=== PATIENT | female | born 1995 | race Caucasian/White ===

== ENCOUNTER 2023-11-11 10:32 | Outpatient (OUT) | payer MEDICAID, SELFPAY ==
--- NOTE | 2023-11-11 10:36 | US_ITS ---
[address] [address] Patient Name: ARPIT HINKLE MRN: [id number] date: 1995 Sex: F Assigned Patient Location: [facility] Current Patient Location: [facility] Accession/Order Number: [id number] Exam Date: 11/11/2023 10:36 Report Date: 11/11/2023 11:40 At the request of: JEFFRY LUCIA Procedure: US OB incomplete anatomy EXAM: US OB incomplete anatomy HISTORY: INCOMPLETE ANATOMY COMPARISON: None. TECHNIQUE: Transabdominal FINDINGS: Moyer intrauterine gestation position: Cephalic presentation, longitudinal lie Heart rate: 149 beats minute Normal observed anatomy: Four-chamber heart, RVOT, LVOT, diaphragm, arms, legs Clinical age: 24 weeks 2 days Clinical CESAR: 02/29/2024 US/US OB incomplete anatomy IMPRESSION: Normal observed anatomy Electronically authenticated by: SAMANTHA HERBERT Date: 11/11/2023 11:40
== END 2023-11-11 10:33 | disposition home or self-care (01) ==
LOC: NOMS 10:32
PROVIDERS: Visit Provider Obstetrics & Gynecology
DX: Z36.2 Encounter for other antenatal screening follow-up (principal); Z3A.24 24 weeks gestation of pregnancy
CPT/HCPCS: 76815

== ENCOUNTER 2023-12-17 12:46 | Outpatient (OUT) | payer MEDICAID, SELFPAY ==
--- OUTSIDE RECORDS SUMMARY | 2023-12-17 12:54 | XMS_ITS | CCD ---
Author Organization [facility] Care Team Providers Care Steeping Press Tender Name Role Phone Ana María Smith Unavailable [phone] Unavailable Unavailable [place], Tomas Unavailable JEFFRY LUCIA Admitting Unavailable JEFFRY LUCIA Attending Unavailable JEFFRY LUCIA Consulting Unavailable MINA ., BIJAN Admitting Unavailable MINA ., BIJAN Attending Unavailable MINA ., BIJAN Consulting Unavailable [place] ([facility]), THOR Landry Attending Provider [phone] [facility] Primary Care Provider [phone] [place] ([facility]), Roz Landry Attending Unavailabl e [place] ([facility]), Roz Landry [facility] Un[facility] Primary Care Provider [phone] [place] ([facility]), TOHR Landry Attending Provider [facility] Primary Care Unavailable [place] ([facility]), Roz Landry Attending Unavailabl e [place] ([facility]), Roz Landry Admitting Unavailabl e JEFFRY LUCIA Attending Unavailable JEFFRY LUCIA Attending Unavailable Medications Current Medications Medication Drug Class(es) Dates Sig (Normalized) Sig (Original) methylPREDNISolone 4 mg oral tablet (1 source) Corticosteroid Start: 05-18-2021 Medrol 4 MG as directed Orally as directed for 6 days May, Active omeprazole 20 mg delayed release oral tablet (1 source) Proton Pump Inhibitor Start: 02-27-2020 take 1 tablet by mouth once daily Omeprazole Magnesium (Prilosec Otc) 20 mg Tablet,Delayed Release (Dr/Ec) Active 20 MG PO Daily February 27, 2020 12:00am polyethylene glycol 3350 44695 mg powder for oral solution (1 source) Osmotic Laxative Start: 02-27-2020 Polyethylene Glycol 3350 (Miralax) 17 gram Powder In Packet Active 17 GM PO Daily February 27, 2020 12:00am mix into 4-8 oz. of any hot/cold/room temp. beverage; use immediately Completed/Discontinued Medications Medication Drug Class(es) Dates Sig (Normalized) Sig (Original) biotin 5 mg oral capsule (2 sources) Biotin 5000 MCG Oral Capsule Quantity: 0 Refills: 0 Ordered: 30-Jul-2021 DO Active methylPREDNISolone 4 MG Oral Tablet Therapy Pack (1 source) Start: 1 take 1 tablet by mouth once daily methylPREDNISolone 4 MG Oral Tablet Therapy Pack TAKE ONE ROW OF TABLETS EACH DAY INSTRUCTED ON THE PACKAGE Quantity: 21 Refills: 0 Ordered: 20-May-2021 DO Start : 20-May-2021 Complete triamcinolone acetonide 0.001 mg/mg topical ointment (2 sources) Corticosteroid Start: 2 Triamcinolone Acetonide 0.1 % External Ointment APPLY SPARINGLY TO AFFECTED AREA(S) 3 TIMES A DAY Quantity: 15 Refills: 1 Ordered: 18-Jul-2021 Ana María Smith MD Start : 18-Jul-2021 Active Womens Daily Multivitamin TABS (2 sources) Womens Daily Multivitamin TABS TAKE 1 TABLET DAILY. Quantity: 0 Refills: 0 Ordered: 30-Jul-2021 DO Active Problems Active Problems Problem Classification Problem Date Documented Da te Episodic/Chronic Abdominal pain (1 source) Abdominal pain; Translations: [Unspecified abdominal pain] 02-27-2020 Episodic Allergic reactions (7 sources) Contact dermatitis; Translations: [Contact dermatitis and other eczema due to other specified agents] Onset: 05-18-2021 Resolved: 05-18-2021 Episodic Anxiety disorders (1 source) Anxiety; Translations: [Anxiety disorder, unspecified] 08-13-2017 Chronic Genitourinary symptoms and ill-defined conditions (4 sources) Urgent desire to urinate; Translations: [Urgency of urination] Episodic Headache; including migraine (1 source) Headache; Translations: [Headache] 08-13-2017 Episodic Immunizations and screening for infectious disease (2 sources) Contact with and (suspected) exposure to infections with a predominantly sexual mode of transmission; Translations: [Encounter for screening for human papillomavirus (HPV)] Onset: 08-28-2021 Episodic Other female genital disorders (4 sources) Other specified noninflammatory disorders of vagina; Translations: [OTH SPEC NONINFLAMMATORY D/O VAGINA] Onset: 08-18-2022 Episodic Other gastrointestinal disorders (2 sources) 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; 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 Other and delivery including normal (1 source) Encounter for supervision of normal first , second trimester; Translations: [Encounter for supervision of normal first , second trimester] Onset: 10-15-2023 Episodic Other skin disorders (2 sources) Skin lesion; Translations: [Dyschromia, unspecified] Episodic Other upper respiratory disease (1 source) Bleeding from nose; Translations: [Epistaxis] 08-13-2017 Episodic Unclassified (2 sources) Encounter for supervision of normal , unspecified, first trimester; Translations: [Encounter for supervision of normal , unspecified, first trimester] Onset: 07-16-2023 Past or Other Problems Problem Classification Problem Date Documented Da te Episodic/Chronic Other screening for suspected conditions (not mental disorders or infectious disease) (4 sources) Encounter for screening for malignant neoplasm of cervix; Translations: [ENC SCREENING MALIG NEOPLASM CERV] Onset: 08-26-2021 Episodic Results Test Name Value Interpretation Reference Range Facility US OB >= 14 weeks Fetuson US OB >= 14 weeks Fetus [facility] [place] [address] Ultrasound Report Signed Patient: Arpit Hinkle MR#: [id number] : 1995 Acct:[id number] Age/Sex: 27 / F ADM Date: 10/15/23 Loc: Room: Type[facility] Attending Dr: Roz Walsh ([facility]) THOR Ordering Provider: Roz Walsh APRN, WHCNP Date of Service: 10/15/23 US/US OB >= 14 weeks Fetus: Z34.02 Copies to: Roz Walsh APRN, WHCNP Obstetrical Ultrasound for Fetus greater than 14 weeks HISTORY: anatomy assessment heart rate is 167 bpm. The fetus is in vertex presentation. The placenta is in a posterior position with normal appearance. Amniotic fluid index is 11.4cm. The cervix has a length of 3.9cm. The estimated weight is 0 lbs. 12 oz.. with percentile at 31%. The ovaries are not visualized. No fluid identified in the cul-de-sac. Following anatomy identified: Nose and lips, spine, stomach, cord insertion, three-vessel cord, kidneys, urinary bladder. Limited assessment of the four-chamber heart, 12 long bones and diaphragm. Cisterna magna measures 3 mm. Lateral ventricle measures 4 mm. The biparietal diameter measures 4.9cm consistent with 20 weeks 6 days. Head circumference measures 18.0cm consistent with 20 weeks 4 days. Abdominal circumference measures 15.0cm consistent with 20 weeks 2 days. Femur length is 3.4cm consistent with 20 weeks 5 days. The average gestational age is 20 weeks 5 days. Estimated due date is 02/27/2024. somatic motion identified. US/US OB >= 14 weeks Fetus IMPRESSION: Single live intrauterine gestation 20 weeks 5 days. The anatomy as above. Impression dictated by: Hubert Rowan M.D.10/15/2023 2:41 PM Dictation Location: [place] [address] Tech: Yanet Xavier Transcribed By: MARCELINA 10/15/23 1441 Dictated By: Hubert Rowan DO 10/15/23 1436 Signed By: 10/15/23 1441 Normal [facility] US OB <= 14 weeks fetuson US OB <= 14 weeks fetus [facility] [place] [address] Ultrasound Report Signed Patient: Arpit Hinkle MR#: [id number] : 1995 Acct:[id number] Age/Sex: 27 / F ADM Date: 07/16/23 Loc: Room: Type: [facility] Attending Dr: Roz Walsh ([facility]) THOR Ordering Provider: Roz Walsh APRN, WHCNP Date of Service: 07/16/23 US/US OB <= 14 weeks fetus: Z3A.01 Copies to: Roz Walsh APRN, WHCNP OB ultrasound. Reason for exam:Dating ultrasound Comparison:None. Technique: Transabdominal imaging of the gravid uterus was obtained. Findings: Single live intrauterine measuring 7 weeks 0 days by CRL CESAR 03/03/2024. heart rate 147 bpm. Ovaries appear unremarkable. No free fluid. US/US OB <= 14 weeks fetus Impression: Single live intrauterine measuring 7 weeks 0 days by CRL CESAR 03/03/2024. Impression dictated by: Oh Mann Jr., D.O.07/16/2023 2:23 PM Dictation Location: [id number] Tech: Gale Richard Transcribed By: PWS 07/16/23 1423 Dictated By: Oh Mann Jr, DO 07/16/23 142 Signed By: 07/16/23 142 Normal [facility] US OB <= 14 weeks fetus [facility] [place] [address] Ultrasound Report Signed Patient: Arpit Hinkle MR#: [id number] : 1995 Acct:[id number] Age/Sex: 27 / F ADM Date: 07/16/23 Loc: Room: Type: [facility] Attending Dr: Roz Walsh ([facility]) THOR Ordering Provider: Roz Walsh APRN, WHCNP Date of Service: 07/16/23 US/US OB <= 14 weeks fetus: Z3A.01 Copies to: Roz Walsh APRN, WHCNP OB ultrasound. Reason for exam:Dating ultrasound Comparison:None. Technique: Transabdominal imaging of the gravid uterus was obtained. Findings: Single live intrauterine measuring 7 weeks 0 days by CRL CESAR 03/03/2024. heart rate 147 bpm. Ovaries appear unremarkable. No free fluid. US/US OB <= 14 weeks fetus Impression: Single live intrauterine measuring 7 weeks 0 days by CRL CESAR 03/03/2024. Impression dictated by: Oh Mann Jr., D.O.07/16/2023 2:23 PM Dictation Location: [id number] Tech: Gale Richard Transcribed By: PWS 07/16/23 1423 Dictated By: Oh Mann Jr, DO 07/16/23 1420 Signed By: 07/16/23 1423 Normal [facility] CHLAMYDIA/GONOCOCCUS HIRAM (SW AB/URINE/PAPon 08-21-2022 Chlamydia trachomatis, HIRAM Negative Normal Negative [facility] Comment on above: Performed By: #### C T/NGNA #### [facility] [address] [place] [address] Dr. Derrick Luna Neisseria gonorrhoeae, HIRAM Negative Normal Negative [facility] Comment on above: Performed By: #### C T/NGNA #### [facility] [address] [place] [address] Dr. Derrick Luna VAGINITIS/VAGINOSIS DNA PROB Dev[place] 08-20-2022 Alyssa species Negative Normal Negative [facility] Comment on above: Performed By: #### V AGINT #### [facility] [address] [place] [address] Dr. Derrick Luna Gardnerella vaginalis Positive Abnormal Negative [facility] Comment on above: Performed By: #### V AGINT #### [facility] [address] [place] [address] Dr. Derrick Luna Trichomonas vaginalis Negative Normal Negative [facility] Comment on above: Performed By: #### V AGINT #### [facility] [address] [place] [address] Dr. Derrick Luna PAP ACOG PANEL 2: 21 to 29on 08-30-2021 . . Normal [facility] Comment on above: Performed By: #### 4 [id number] #### [facility] [address] [place] [address] Dr. Derrick Luna Age Gdln ACOG Testing - Normal [facility] Comment on above: Performed By: #### 4 [id number] #### [facility] [address] [place] [address] Dr. Derrick Luna DIAGNOSIS: Comment Normal [facility] Comment on above: Result Comment: NEGA TIVE FOR INTRAEPITHELIAL LESION OR MALIGNANCY. THIS SPECIMEN WAS RESCREENED PART OF OUR CUSTOMER SERVICE ADVISOR PROGRAM. Performed By: #### 4 [id number] #### [facility] [address] [place] [address] Dr. Derrick Luna Methodology: Comment Normal [facility] Comment on above: Result Comment: This liquid based ThinPrep(R) pap test was screened with the use of an image guided system. Performed By: #### 4 [id number] #### [facility] [address] [place] [address] Dr. Derrick Luna Note: Comment Normal [facility] Comment on above: Result Comment: The Pap smear is a screening test designed to aid in the detection of premalignant and malignant conditions of the uterine cervix. It is not a diagnostic procedure and should not be used as the sole means of detecting cervical cancer. Both false-positive and false-negative reports do occur. . Performed By: #### 4 [id number] #### [facility] [address] [place] [address] Dr. Derrick Luna Performed by: Comment Normal [facility] Comment on above: Result Comment: Ifrah Villa, Roofing Sales Representative (ASCP) Performed By: #### 4 [id number] #### [facility] [address] [place] [address] Dr. Derrick Luna QC reviewed by: Comment Normal [facility] Comment on above: Result Comment: Jorge Mcclain, Roofing Sales Representative (ASCP) Performed By: #### 4 [id number] #### [facility] [address] [place] [address] Dr. Derrick Luna Reflex Criteria: Comment Normal [facility] Comment on above: Result Comment: The HPV DNA reflex criteria were not met with this specimen result therefore, no HPV testing was performed. . Performed By: #### 4 [id number] #### [facility] [address] [place] [address] Dr. Derrick Luna Specimen adequacy: Comment Normal [facility] Comment on above: Result Comment: Sati sfactory for evaluation. Endocervical and/or squamous metaplastic cells (endocervical component) are present. Performed By: #### 4 [id number] #### [facility] [address] [place] [address] Dr. Derrick Luna Office Visit (Allergy/Immuno logy)on 07-30-2021 Follow-up visit Diagnoses/Problems Health Maintenance/Risks Encounter for preventive health examination (V70.0) (Z00.00) Assessed Hypopigmented skin lesion (709.00) (L81.9) Contact dermatitis due to other agent (692.89) (L25.8) Food intolerance (579.8) (K90.49) Allergy (995.3) (T78.40XA) Orders Contact dermatitis due to other agent Stop: Triamcinolone Acetonide 0.1 % External Ointment Hypopigmented skin lesion Dermatology Referral Evaluation and Treatment Evaluate AND Treat Status: Hold For - Scheduling Requested for: 30Jul2021 Patient Discussion/Summary Referred to dermatology Follow up as needed Provider Impressions Hypopigmented macules No allergy to to food or environmental triggers. Chief Complaint New patient here to discuss rash, PCP is Dr. Ana María Smith History of Present IllnessPatient here to discuss rash. Patient had a hives breakout about 2 months ago lasting 5 days, so went to PCP and was given a steroid injection and did improve after an hour or so, but still had the bumps. Patient thought was related to a tanning chambers. Patient states that she has never had before. Patient states she will on occasion having itching of her hands. Patient uses lotion daily, baby lotion, Honey lavender from [employer] as well, but does not notice any difference. Patient can't recall any new triggers during each episode other than a protein smoothie from a coworker that day, with flax seeds, but states had the hives at bedtime. Patient has a dog in the home that she has had for 4 1/2 years. Patient states she has 1 full blood sister that is allergic to candles/scents causing her to have rashes and breathing problems, and has 2 half sisters stating allergic to multiple medications, latex, bananas, blueberries, raspberries, sunflower, lavender and hemp as well as as thyroid problems. Patient states mother is allergic to PCN, latex and Keflex. Patient states that she has some skin patches that look white in color and also states has some flat, redness on her L antecubital area that comes and goes. Patient is using topical lotions, no prescribed meds One large episode of hives. Occurred spontaneously. Not related to illness or ingestion. ? heat exposure. Review of Systems Constitutional: no fever, no chills and not feeling tired. Eyes: eyes not red and no itching of the eyes. ENT: no hearing loss, no nosebleeds, no nasal discharge, no sore throat and no hoarseness. Cardiovascular: no chest pain and no palpitations. Respiratory: no shortness of breath, no wheezing, no cough and no shortness of breath during exertion. Gastrointestinal: no abdominal pain, no constipation, no heartburn, no diarrhea and no vomiting. Integumentary: no dry skin. Psychiatric: no anxiety and no depression. All other systems have been reviewed and are negative for complaint. Constitutional: no fever and normal activity. Integumentary: no rashes and no itching. Eyes: no discharge from the eyes and no itching of the eyes. ENT: no sneezing jags, no nasal congestion and no rhinorrhea. Respiratory: no difficulty breathing and no cough. Gastrointestinal: no vomiting and no diarrhea. Psychiatric: no change in behavior. All other systems have been reviewed and are negative for complaint. Active Problems Problems Contact dermatitis due to other agent (692.89) (L25.8) Urinary urgency (788.63) (R39.15) Family History Sister Family history of thyroid disease (V18.19) (Z83.49) Family history of Other iron deficiency anemia Grandparent Family history of lung cancer (V16.1) (Z80.1) Family history of malignant neoplasm of larynx (V16.2) (Z80.2) Maternal Grandfather Family history of hypertension (V17.49) (Z82.49) Maternal Aunt Family history of thyroid disease (V18.19) (Z83.49) Social History Problems Never smoked cigarettes (V49.89) (Z78.9) Patient consumes caffeinated coffee (V49.89) (Z78.9) Social alcohol use (V49.89) (Z78.9) Allergies Medication No Known Drug Allergies Recorded By: Bryanna Khan; 07/18/2021 2:40:17 PM Current Meds Medication NameInstruction Biotin 5000 MCG Oral Capsule Triamcinolone Acetonide 0.1 % External OintmentAPPLY SPARINGLY TO AFFECTED AREA(S) 3 TIMES A DAY Womens Daily Multivitamin TABSTAKE 1 TABLET DAILY. Vitals Vital Signs Recorded: 30Jul2021 03:31PM Qhixnarvzta48.1 F, Temporal Heart Rate71 Zhvdvggebdx79 Uxmrnbqv763 Klrfktjyf30 Height5 ft 1 in Nvlbob566 lb BMI Sbvndbqdty28.1 kg/m2 BSA Calculated1.69 Tobacco Useb) No O2 Kitgbhdcsa84, RA Physical Exam Constitutional General appearance: Well developed, well nourished, no acute distress. Head and Face Palpation of the face and sinuses: No sinus tenderness, normal cephalic, atraumatic. Eyes Inspection of the conjunctiva and lids: Normal, no injection, no shiners. Ears, Nose, Mouth, and Throat Inspection of the nasal mucosa, septum, and turbinates: Normal without edema or erythema. (more content not included)... Normal [employer] Tobacco Screening.on 022 Tobacco use status CPHS b) No [id number] [place] [id number] Work Phone: COMPREHENSIVE PANELon 2021 Albumin [Mass/Vol] 4.7 g/dL Normal 3.4 - 5.0 [facility] Comment on above: Performed By: #### C MP #### [address] [id number] ALP [Catalytic activity/Vol] 60 U/L Normal 33 - 110 [facility] Comment on above: Performed By: #### C MP #### [address] [id number] ALT [Catalytic activity/Vol] 29 U/L Normal 7 - 45 [facility] Comment on above: Result Comment: Rolanda ents treated with Sulfasalazine may generate falsely decreased results for ALT. Performed By: #### C MP #### [address] [id number] Anion gap [Moles/Vol] 12 mmol/L Normal 10 - 20 [facility] Comment on above: Performed By: #### C MP #### [address] [id number] AST [Catalytic activity/Vol] 30 U/L Normal 9 - 39 [facility] Comment on above: Performed By: #### C MP #### [address] [id number] Bilirubin [Mass/Vol] 0.6 mg/dL Normal 0.0 - 1.2 [facility] Comment on above: Performed By: #### C MP #### [address] [id number] Calcium [Mass/Vol] 10.0 mg/dL Normal 8.6 - 10.3 [facility] Comment on above: Performed By: #### C MP #### [address] [id number] Chloride [Moles/Vol] 100 mmol/L Normal 98 - 107 [facility] Comment on above: Performed By: #### C MP #### [address] [id number] Creatinine [Mass/Vol] 0.79 mg/dL Normal 0.50 - 1.05 [facility] Comment on above: Performed By: #### C MP #### [address] [id number] eGFR FEMALE >90 Normal >90 [facility] Comment on above: Result Comment: CALC ULATIONS OF ESTIMATED GFR ARE PERFORMED USING THE 2020 CKD-EPI STUDY REFIT EQUATION WITHOUT THE RACE VARIABLE FOR THE IDMS-TRACEABLE CREATININE METHODS. https://jasn.asnjournals.org/content/early/ASN.52909806 88 Performed By: #### C MP #### [address] [id number] Glucose [Mass/Vol] 85 mg/dL Normal 74 - 99 [facility] Comment on above: Performed By: #### C MP #### [address] [id number] HCO3 (Bld) [Moles/Vol] 29 mmol/L Normal 21 - 32 [facility] Comment on above: Performed By: #### C MP #### [facility] [address] [place], [place] [id number] Potassium [Moles/Vol] 3.9 mmol/L Normal 3.5 - 5.3 [facility] Comment on above: Performed By: #### C MP #### [facility] [address] [place], [place] [id number] Protein [Mass/Vol] 8.2 g/dL Normal 6.4 - 8.2 [facility] Comment on above: Performed By: #### C MP #### [facility] [address] [place], [place] [id number] Sodium [Moles/Vol] 137 mmol/L Normal 136 - 145 [facility] Comment on above: Performed By: #### C MP #### [facility] [address] [place], [place] [id number] Urea nitrogen [Mass/Vol] 14 mg/dL Normal 6 - 23 [facility] Comment on above: Performed By: #### C MP #### [facility] [address] [place], [place] [id number] Laboratory - Chemistry and C hemistry - challengeon 07-18-2021 Albumin BCP dye [Mass/Vol] 4.7 g/dL 3.4 - 5.0 [facility] Work Phone: ALP [Catalytic activity/Vol] 60 U/L 33 - 110 [facility] Work Phone: ALT With P-5'-P [Catalytic activity/Vol] 29 U/L 7 - 45 [facility] Work Phone: Comment on above: Patients treated wit h Sulfasalazine may generate falsely decreased results for ALT. Anion gap [Moles/Vol] 12 mmol/L 10 - 20 [facility] Work Phone: AST With P-5'-P [Catalytic activity/Vol] 30 U/L 9 - 39 [facility] Work Phone: Bilirubin [Mass/Vol] 0.6 mg/dL 0.0 - 1.2 [facility] Work Phone: Calcium [Mass/Vol] 10.0 mg/dL 8.6 - 10.3 [facility] Work Phone: Chloride [Moles/Vol] 100 mmol/L 98 - 107 [facility] Work Phone: CO2 [Moles/Vol] 29 mmol/L 21 - 32 [facility] Work Phone: Creatinine [Mass/Vol] 0.79 mg/dL See Below [facility] Work Phone: Comment on above: Reference Range: 0.5 0 - 1.05 Glucose [Mass/Vol] 85 mg/dL 74 - 99 [facility] Work Phone: Potassium [Moles/Vol] 3.9 mmol/L 3.5 - 5.3 [facility] Work Phone: Protein [Mass/Vol] 8.2 g/dL 6.4 - 8.2 [facility] Work Phone: Sodium [Moles/Vol] 137 mmol/L 136 - 145 [facility] Work Phone: TSH Qn 0.73 m[IU]/L See Below [facility] Work Phone: Comment on above: Reference Range: 0.4 4 - 3.98 TSH testing is performed using different testing methodology at [facility] than at other [facility] Direct result comparisons should only be made within the same method. Urea nitrogen [Mass/Vol] 14 mg/dL 6 - 23 [facility] Work Phone: No Panel Informationon 07-18 >90 >90 [facility] Work Phone: Comment on above: CALCULATIONS OF [facility] MATED GFR ARE PERFORMED USING THE 2020 CKD-EPI STUDY REFIT EQUATION WITHOUT THE RACE VARIABLE FOR THE IDMS-TRACEABLE CREATININE METHODS.https://jasn.asnjournals.org/content//ASN. 0477209650 [facility] Follow-up visit Diagnoses/Problems Patient consumes caffeinated coffee (V49.89) (Z78.9) Family history of malignant neoplasm of larynx (V16.2) (Z80.2) : Grandparent Family history of lung cancer (V16.1) (Z80.1) : Grandparent Family history of Other iron deficiency anemia : Sister Family history of thyroid disease (V18.19) (Z83.49) : Maternal Aunt, Sister Contact dermatitis due to other agent (692.89) (L25.8) Urinary urgency (788.63) (R39.15) Orders Contact dermatitis due to other agent Start: Triamcinolone Acetonide 0.1 % External Ointment; APPLY SPARINGLY TO AFFECTED AREA(S) 3 TIMES A DAY Comprehensive Metabolic Panel; Status:Active; Requested for:[id number]; TSH WITH REFLEX TO FREE T4 IF ABNORMAL; Status:Active; Requested for:[id number]; Urinalysis; Status:Active; Requested for:[id number]; Patient Discussion/Summary rx , Labs ,FF , F/U Neuropsychiatrist , OPH , tcb x 1wk , daily X's , , rto pending reports , routine skin care Chief Complaint Patient presented today to [facility]. History of Present Illness Physical Review of Systems Constitutional: no chills, no fever and no night sweats. Eyes: no blurred vision and no eyesight problems . oph. Genitourinary:. AMMONIUM NITRATE CRYSTALLIZER , h/o atb / lozano cath @ age of 9yrs. The patient presents with complaints of gradual onset of constant episodes of moderate urinary frequency. Symptoms are not improved by diet modification and caffeine restriction. Symptoms are not made worse by oral fluid intake, stress, fatigue, acidic foods, spicy foods, caffeine, diuretics and alcohol. Symptoms are unchanged. Previous Evaluation: h/o urinary retention in childhood. Risk Factors: no trauma and no new medication. Pertinent Medical History: no previous UTI, no previous STD, no BPH and no urethral stricture. Integumentary: a rash . chest / lt elbow x 3 m from tanning. Psychiatric: anxiety, depression and emotional problems . h/o 8 yrs saw psyche. Endocrine: polyuria, but no recent weight gain and no recent weight loss. Hematologic/Lymphatic: no tendency for easy bruising and no swollen glands. Family History Family history of thyroid disease (V18.19) (Z83.49) Family history of Other iron deficiency anemia Family history of lung cancer (V16.1) (Z80.1) Family history of malignant neoplasm of larynx (V16.2) (Z80.2) Family history of hypertension (V17.49) (Z82.49) Family history of thyroid disease (V18.19) (Z83.49) Social History Never smoked cigarettes (V49.89) (Z78.9) Patient consumes caffeinated coffee (V49.89) (Z78.9) Social alcohol use (V49.89) (Z78.9) Allergies No Known Drug Allergies Recorded By: Bryanna Khan; 07/18/2021 2:40:17 PM Vitals Vital Signs Printed in Appendix #1 below. Physical Exam Constitutional: Alert and in no acute distress. Well developed, well nourished. Head and Face: Head and face: Normal. Palpation of the face and sinuses: Normal. Eyes: Normal external exam. Pupils were equal in size, round, reactive to light (PERRL) with normal accommodation and extraocular movements intact (EOMI). Ophthalmoscopic examination: Normal. Ears, Nose, Mouth, and Throat: External inspection of ears and nose: Normal. Hearing: Normal. Oropharynx: Normal. Neck: No neck mass was observed. Supple. Thyroid not enlarged and there were no palpable thyroid nodules. Cardiovascular: Palpation of heart: Normal. Carotid pulses: Normal with no bruits. No peripheral edema. Pulmonary: Clear bilateral breath sounds. Chest: Chest: Normal. Abdomen: Soft nontender; no abdominal mass palpated. No hernias. Musculoskeletal: Gait and station: Normal. No joint swelling seen, normal movements of all extremities. Skin: Examination of the skin for lesions: Abnormal. Multiple, jorgito macule(s) without scalloped borders, with symmetrical borders, with smooth borders that were annular, that were bandlike. Neurologic: Cortical function: Normal. Deep tendon reflexes were 2+ and symmetric. Coordination: Normal. Psychiatric: Judgment and insight: Intact. Alert and oriented x 3. Recent and remote memory: Normal. Mood and affect: Normal. Lymphatic: No cervical lymphadenopathy. 'Scores and Scales' Signatures Electronically signed by : Ana María Smith MD; Jul 18 2021 3:13PM EST (Author) Appendix #1 Vital Signs Patient: ARPIT HINKLE; : 1995; Recorded: 18Jul2021 02:50PMRecorded: [id number] 02:44PMRecorded: 18Jul2021 02:37PM Tobacco Useb) No PHQ-2 #1. Over the last 2 weeks have you felt down, depressed or hopeless? (If yes, answer PHQ-9 below)No PHQ-2 #2. Over the last 2 weeks have you felt little interest or pleasure in doing things? (If yes, answer PHQ-9 below)No Snobcppj911 Nnkbdhnhj57 Vhltwrtmjrj40.6 F Height5 ft 3 in Twfqoj957 lb BMI Izqywndbpn42.63 kg/m2 BSA Calculated1.74 Normal [facility] TSH WITH REFLEX TO FREE T4 I F ABNORMALon 07-18-2021 TSH Qn 0.73 m[IU]/L Normal 0.44 - 3.98 [facility] Comment on above: Result Comment: TSH testing is performed using different testing methodology at [facility] than at other [facility]. Direct result comparisons should only be made within the same method. Performed By: #### T [facility] #### [address] [id number] Tobacco Screening.on 022 Adult depression screening assessment No [facility] 125 Work Phone: Tobacco use status CPHS b) No [facility] 125 Work Phone: UA MICROSCOPICon 07-18-2021 Mucus Ql (Urine sed) 2+ /LPF Normal [facility] Comment on above: Performed By: #### U [facility] #### [address] [id number] RBC 6 /HPF Abnormal 0-5 [facility] Comment on above: Performed By: #### U [facility] #### [address] [id number] SQUAMOUS EPITH. CELLS 3 /HPF Normal [facility] Comment on above: Performed By: #### U AMIC #### [address] [id number] WBC 1 /HPF Normal 0-5 [facility] Comment on above: Performed By: #### U AMIC #### [address] [id number] URINALYSISon 07-18-2021 Appearance (U) HAZY Normal CLEAR [facility] Comment on above: Performed By: #### U A #### [address] [id number] Bilirubin Ql (U) Negative Normal NEGATIVE [facility] Comment on above: Performed By: #### U A #### [address] [id number] Color (U) YELLOW Normal STRAW,YELLOW [facility] Comment on above: Performed By: #### U A #### [address] [id number] Glucose Ql (U) Negative Normal NEGATIVE [facility] Comment on above: Performed By: #### U A #### [address] [id number] Hemoglobin Ql (U) MODERATE(2+) Abnormal NEGATIVE [facility] Comment on above: Performed By: #### U A #### [address] [id number] Ketones Ql (U) Negative Normal NEGATIVE [facility] Comment on above: Performed By: #### U A #### [address] [id number] Leukocyte esterase Test strip Ql (U) SMALL (1+) Abnormal NEGATIVE [facility] Comment on above: Performed By: #### U A #### [address] [id number] Nitrite Ql (U) Negative Normal NEGATIVE [facility] Comment on above: Performed By: #### U A #### [address] [id number] pH (U) 5.0 [pH] Normal 5.0 - 8.0 [facility] Comment on above: Performed By: #### U A #### [address] [id number] Protein Ql (U) Negative Normal NEGATIVE [facility] Comment on above: Performed By: #### U A #### [address] [id number] Specific gravity (U) [Rel density] 1.020 Normal 1.005 - 1.035 [facility] Comment on above: Performed By: #### U A #### [address] [id number] Urobilinogen (U) [Mass/Vol] mg/dL Normal 0.0 - 1.9 [facility] Comment on above: Performed By: #### U A #### [address] [id number] Urinalysison 07-18-2021 Color (U) YELLOW See Below [facility] 125 Work Phone: Comment on above: Reference Range: STR AW,YELLOW Glucose Ql (U) Negative NEGATIVE [facility] Work Phone: Ketones Ql (U) Negative NEGATIVE [facility] Work Phone: Leukocyte esterase Test strip Ql (U) SMALL (1+) Abnormal NEGATIVE [facility] 125 Work Phone: pH (U) 5.0 [pH] 5.0 - 8.0 [facility] 125 Work Phone: Protein (U) [Mass/Vol] Negative NEGATIVE [facility] Work Phone: RBC (U) [#/Vol] MODERATE(2+) Abnormal NEGATIVE [facility] 125 Work Phone: Specific gravity (U) [Rel density] 1.020 1 See Below [facility] Work Phone: Comment on above: Reference Range: 1.0 05 - 1.035 Urinalysis Negative NEGATIVE [facility] 125 Work Phone: Urinalysis <2.0 0.0 - 1.9 [facility] 125 Work Phone: Urinalysis HAZY CLEAR [facility] 125 Work Phone: Urinalysis, Microscopicon Urinalysis, Microscopic 2+ [facility] Work Phone: Urinalysis, Microscopic 3 {/HPF} [facility] Work Phone: Urinalysis, Microscopic 6 {/HPF} Abnormal 0-5 [facility] 125 Work Phone: Urinalysis, Microscopic 1 {/HPF} 0-5 [facility] Work Phone: Vital Signs Date Time Vital Sign Value Performing Clinician Laron cazares 07-30-2021 15:31-0500 Body height 154.94 cm Ana María [facility] Work Phone: [id number] [place] [address] Work Phone: 07-30-2021 15:31-0500 Body mass index (BMI) [Ratio] 29.1 kg/m2 [facility] Work Phone: [id number] [place] [address] Work Phone: 07-30-2021 15:31-0500 Body surface area Derived from formula 1.69 m2 [facility] Work Phone: [id number] [place] [address] Work Phone: 07-30-2021 15:31-0500 Body temperature 98.1 [degF] [facility] Work Phone: [id number] [place] [address] Work Phone: 07-30-2021 15:31-0500 Body weight 69.85 kg [facility] Work Phone: [id number]-[id number] [place] [address] Work Phone: 07-30-2021 15:31-0500 Diastolic blood pressure 68 mm[Hg] [facility] Work Phone: [id number]-[id number] [place] [address] Work Phone: 07-30-2021 15:31-0500 Heart rate 71 /min [facility] Work Phone: [id number] [place] [address] Work Phone: 07-30-2021 15:31-0500 Respiratory rate 17 /min [facility] Work Phone: [id number] [place] [address] Work Phone: 07-30-2021 15:31-0500 SaO2% (BldA) [Mass fraction] 98 % [facility] Work Phone: [facility] [address] Work Phone: 07-30-2021 15:31-0500 Systolic blood pressure 110 mm[Hg] [facility] Work Phone: [facility] [address] Work Phone: 07-18-2021 14:44-0500 Diastolic blood pressure 70 mm[Hg] [facility] Work Phone: [facility] 125 Work Phone: 07-18-2021 14:44-0500 Systolic blood pressure 116 mm[Hg] [facility]: [facility] Work Phone: 07-18-2021 14:37-0500 Body height 160.02 cm [facility] Work Phone: [facility] 125 Work Phone: 07-18-2021 14:37-0500 Body mass index (BMI) [Ratio] 27.63 kg/m2 [facility] Work Phone: [facility] Work Phone: 07-18-2021 14:37-0500 Body surface area Derived from formula 1.74 m2 [facility] Work Phone: [facility] Work Phone: 07-18-2021 14:37-0500 Body temperature 98.6 [degF] [facility] Work Phone: [facility] 125 Work Phone: 07-18-2021 14:37-0500 Body weight 70.76 kg Ana María [facility] Work Phone: [facility] 125 Work Phone: 05-18-2021 15:40-0500 Body height 160.02 cm Tomas Claire Other [employer] Other 05-18-2021 15:40-0500 Body mass index (BMI) [Ratio] 25.68 kg/m2 Tomas Claire Other [employer] Other 05-18-2021 15:40-0500 Body temperature 98.4 [degF] Tomas Claire Other [employer] Other 05-18-2021 15:40-0500 Body weight 65.77 kg Tomas Claire Other [employer] Other 05-18-2021 15:40-0500 Respiratory rate 18 /min Tomas Claire Other [employer] Other 05-18-2021 15:40-0500 SaO2% (BldA) [Mass fraction] 97 % Tomas Claire Other [employer] Other Encounters Encounter Date Encounter Type Care Provider Facility Start: 11-11-2023 End: 11-11-2023 ambulatory JEFFRY KHARI Not Available Start: 10-29-2023 End: 10-29-2023 ambulatory JEFFRY KHARI Not Available Start: 10-15-2023 End: 10-15-2023 ambulatory [facility] Facility:[facility] Start: 10-15-2023 End: 10-15-2023 ambulatory [facility] Work Phone: [facility] Work Phone: Start: 10-15-2023 End: 10-15-2023 Patient encounter procedure [facility] Work Phone: [facility] Work Phone: Start: 07-16-2023 End: 07-16-2023 ambulatory Roz Walsh ([facility]) Facility:[facility] Start: 07-16-2023 End: 07-16-2023 ambulatory [facility] Work Phone: [facility] Work Phone: Start: 07-16-2023 End: 07-16-2023 Patient encounter [facility] Work Phone: [facility] Work Phone: Start: 08-18-2022 End: 08-18-2022 ambulatory BIJAN ENRIQUEZ . Facility:[facility] Start: 08-26-2021 End: 08-26-2021 ambulatory JEFFRY LUCIA Facility:[facility] Start: 07-30-2021 Office consultation new/estab patient 60 min [id number] Work Phone: Start: 07-19-2021 Chart Update [facility] Work Phone: [facility] Work Phone: Start: 07-18-2021 Office outpatient ne w 30 minutes [facility] Work Phone: [facility] 125 Work Phone: Start: 05-18-2021 End: 05-18-2021 ambulatory Tomas Claire Other [facility] Other Start: 05-18-2021 Office outpatient ne w 30 minutes Tomas Claire [facility] [address] Procedures Date Procedure Procedure Detail Performing Clinician Start: 10-15-2023 Diagnostic ultras[facility] gravid [facility] Work [facility]: Start: 07-16-2023 Diagnostic ultrasoun d of gravid uterus [facility] Work Phone: Plan of Treatment Date Care Activity Detail Author Start: 07-30-2021 NPV, Provider: Lita Barriga, Status: Pen, Time: 3:10 PM NPV, Provider: Lita Barriga, Status: Pen, Time: 3:10 PM [facility] 125 Work Phone: Immunizations Immunization Date Immunization Notes Care Provider Janee lizzjesus 01-10-2021 Pfizer-BioNTech COVID-19 Vacc 30 MCG/0.3ML Intramuscular Suspension [facility] Work Phone: [facility] Work Phone: 01-20-2002 diphtheria, tetanus toxoids and acellular pertussis vaccine, unspecified formulation [facility] Work Phone: [facility] 125 Work Phone: 01-20-2002 hepatitis B vaccine, pediatric or pediatric/adolescent dosage [facility] Work Phone: [facility] Work Phone: 01-20-2002 measles, mumps and rubella virus vaccine [facility] Work Phone: [facility] 125 Work Phone: 01-20-2002 poliovirus vaccine, inactivated [facility] Work Phone: [facility] 125 Work Phone: 08-05-1999 diphtheria, tetanus toxoids and acellular pertussis vaccine, unspecified formulation [facility] Work Phone: [facility] 125 Work Phone: 08-05-1999 haemophilus influenz ae type b vaccine, conjugate unspecified formulation [facility] Work Phone: [facility] 125 Work Phone: 08-05-1999 measles, mumps and rubella virus vaccine [facility] Work Phone: [facility] 125 Work Phone: Payers Date Payer Category Payer Medicaid [id number] 2023 Self-pay 1995 Unknown [id number] 2.16.84 [id number] 1995 Unknown [id number] 2.16.84 [id number] 1995 Unknown [id number] 2.16.84 [id number] 1995 Unknown [id number] 2.16.84 [id number] 1959 Unknown [id number] Unknown ANTHEM Unknown [id number] 2.16.8 [id number] Unknown HCAP/HFA/FAP Active [id number] Unknown [id number] 2.16.8 [id number] Social History Date Type Detail Facility Never smoked cigarettes Never smoked cigarettes [employer] [facility] [employer] Other Sex Assigned At Sex Assigned At [employer] Other Start: 1995 Sex Assigned At Female F [facility] Start: 02-27-2020 Tobacco smoking stat us NHIS Never smoked tobacco (finding) [facility] History of Present illness Narrative 06-08-2021 Note Date & Type Note Facility 06-08-2021 History of Present illness Narrative Patient here to discuss rash. Patient had a hives breakout about 2 months ago lasting 5 days, so went to PCP and was given a steroid injection and did improve after an hour or so, but still had the bumps.Patient thought was related to a tanning chambers. Patient states that she has never had before. Patient states she will on occasion having itching of her hands. Patient uses lotion daily, baby lotion, Honey lavender from [employer] as well, but does not notice any difference. Patient can't recall any new triggers during each episode other than a protein smoothie from a coworker that day, with flax seeds, but states had the hives at bedtime.Patient has a dog in the home that she has had for 4 1/2 years. Patient states she has 1 full blood sister that is allergic to candles/scents causing her to have rashes and breathing problems, and has 2 half sisters stating allergic to multiple medications, latex, bananas, blueberries, raspberries, sunflower, lavender and hemp as well as as thyroid problems. Patient states mother is allergic to PCN, latex and Keflex. Patient states that she has some skin patches that look white in color and also states has some flat, redness on her L antecubital area that comes and goes.Patient is using topical lotions, no prescribed medsOne large episode of hives. Occurred spontaneously.Not related to illness or ingestion. ? heat exposure. [employer] Work Phone: History of Present illness Narrative 06-01-2021 Note Date & Type Note Facility 06-01-2021 History of Present illness Narrative Patient here to discuss rash. Patient had a hives breakout about 2 months ago lasting 5 days, so went to PCP and was given a steroid injection and did improve after an hour or so, but still had the bumps.Patient thought was related to a tanning chambers. Patient states that she has never had before. Patient states she will on occasion having itching of her hands. Patient uses lotion daily, baby lotion, Honey lavender from [employer] as well, but does not notice any difference. Patient can't recall any new triggers during each episode other than a protein smoothie from a coworker that day, with flax seeds, but states had the hives at bedtime.Patient has a dog in the home that she has had for 4 1/2 years. Patient states she has 1 full blood sister that is allergic to candles/scents causing her to have rashes and breathing problems, and has 2 half sisters stating allergic to multiple medications, latex, bananas, blueberries, raspberries, sunflower, lavender and hemp as well as as thyroid problems. Patient states mother is allergic to PCN, latex and Keflex. Patient states that she has some skin patches that look white in color and also states has some flat, redness on her L antecubital area that comes and goes.Patient is using topical lotions, no prescribed medsOne large episode of hives. Occurred spontaneously.Not related to illness or ingestion. ? heat exposure. [id number] [place] [address] Work Phone: Evaluation note 05-18-2021 Note Date & Type Note Facility 05-18-2021 Evaluation note Encounter Date Diagnosis Assessment Notes May, Acute urticaria (ICD-10 - L50.8) Take benadryl 50 mg at night for rash. Drink plenty of fluids. Do not perez or use any tanning lotion. Take medicine as prescribed. If symptoms return you may need to see an student teacher. I considered/disc ussed prescription medicine with the patient. No evidence of anaphylaxis. Etiology of allergy unknown. If she develops sob, wheezing, N/V, or swelling in her lips, she is advised to go to the ER immediately. Advised pt to follow up with student teacher if she develops returning symptoms. Will tx today with kenalog injections and medrol dose pack. Also advised to take benadryl as directed until rash clears. Pt understands and agrees with the plan. [employer] Other Evaluation note Note Date & Type Note Facility Evaluation note No assessment information [facility] Work Phone: History of Present illness Narrative Note Date & Type Note Facility History of Present illness Narrative Physical -[facility] Work Phone: Chief Complaint Patient presented today to [facility].New patient here to discuss rash, PCP is Dr. Ana María Gasca patient here to discuss rash, PCP is Dr. Ana María Smith Family History No Family History Records FoundUnknown Family Member Name Dates Details Family history of hypertensi on: Maternal Grandfather(V17.49, Z82.49) Status:Active Family history of malignant neoplasm of larynx: Grandparent(V16.2, Z80.2) Status:Active Family history of lung cance r: Grandparent(V16.1, Z80.1) Status:Active Other iron deficiency anemia : Sister Status:Active Family history of thyroid di sease: Maternal Aunt, Sister(V18.19, Z83.49) Status:Active Unknown Family Member Name Dates Details Family history of hypertensi on: Maternal Grandfather(V17.49, Z82.49) Status:Active Family history of malignant neoplasm of larynx: Grandparent(V16.2, Z80.2) Status:Active Family history of lung cance r: Grandparent(V16.1, Z80.1) Status:Active Other iron deficiency anemia : Sister Status:Active Family history of thyroid di sease: Maternal Aunt, Sister(V18.19, Z83.49) Status:Active Unknown Family Member Name Dates Details Family history of malignant neoplasm of larynx: Grandparent(V16.2, Z80.2) Status:Active Family history of lung cance r: Grandparent(V16.1, Z80.1) Status:Active Other iron deficiency anemia : Sister Status:Active Family history of thyroid di sease: Maternal Aunt, Sister(V18.19, Z83.49) Status:Active Family history of hypertensi on: Maternal Grandfather(V17.49, Z82.49) Status:Active Unknown Family Member Name Dates Details Family history of hypertensi on: Maternal Grandfather(V17.49, Z82.49) Status:Active Family history of malignant neoplasm of larynx: Grandparent(V16.2, Z80.2) Status:Active Family history of lung cance r: Grandparent(V16.1, Z80.1) Status:Active Other iron deficiency anemia : Sister Status:Active Family history of thyroid di sease: Maternal Aunt, Sister(V18.19, Z83.49) Status:Active Summary Purpose Advance Directives No Advanced Directives Records Found Advance Directive Response Recorded Date/ Time Advance Directives No July 10:34am Advance Directive Response Recorded Date/ Time Advance Directives No July 11:34am Chief Complaint and Reason for Visit Chief Complaint V30.01 Chief Complaint Z34.02 Additional Source Comments INFORMATION SOURCE (unrecogn ized section and content) DATE CREATED AUTHOR 07/31/2021 [facility] DATE CREATED AUTHOR AUTHOR'S ORGANIZ ATION 07/31/2021 [employer] DATE CREATED AUTHOR AUTHOR'S ORGANIZ ATION 08/24/2022 [facility] DATE CREATED AUTHOR AUTHOR'S ORGANIZ ATION 07/31/[address] [facility] DATE CREATED AUTHOR AUTHOR'S ORGANIZ ATION 10/30/2023 [facility] DATE CREATED AUTHOR AUTHOR'S ORGANIZ ATION 11/12/2023 [facility] EPIC REASON FOR VISIT (unrecogniz ed section and content) rash on arms, back, legs Care Teams (unrecognized sec tion and content) Team Status: Active Member Role Status Dates [facility] Primary Care Provider Active Team Status: Inactive Member Role Status Dates [facility] Attending [facility] Active Start: July 16, 2023 End: July 16, 2023 Sen [facility] Primary Care Provider Active Start: July 16, 2023 End: July 16, 2023 Team Status: Inactive Member Role Status Dates [facility] Primary Care Provider Active Start: October 15, 2023 End: October 15, 2023 [facility] Attending Provider Active Start: October 15, 2023 End: October 15, 2023 Goals (unrecognized section and content) Goals may be documented in a n alternate section FOR RECORDS PERTAINING TO PATIENTS WHO ARE OR HAVE BEEN ENROLLED IN A CHEMICAL DEPENDENCY/SUBSTANCEABUSE PROGRAM, SOME INFORMATION MAY BE OMITTED. This clinical summary was aggregated from multiple sources. Caution should be exercised in using it in the provision of clinical care. This summary normalizes information from multiple sources, and as a consequence, information in this document may materially change the coding, format and clinical context of patient data. In addition, data may be omitted in some cases. CLINICAL DECISIONS SHOULD BE BASED ON THE PRIMARY CLINICAL RECORDS. [facility] [employer] [facility]. provides no warranty or guarantee of the accuracy or completeness of information in this document.
[2023-12-17 14:45] LABS: Basophils Absolute Auto 0.1 10^3/uL (0.0-0.1); Basophils Percent Auto 0.5 % (0.2-2.0); Eosinophils Absolute Auto 0.1 10^3/uL (0.0-0.7); Eosinophils Percent Auto 0.6 % (0.9-7.0); Hematocrit 32.2 % (36.0-48.0); Hemoglobin 10.4 g/dL (12.0-16.0); Immature Granulocytes Abs Auto 0.07 10^3/uL (0.00-0.03); Immature Granulocytes Pct Auto 0.6 % (0.0-0.5); Lymphocytes Percent Auto 16.4 % (20.5-60.0); Mean Corpuscular HGB Conc 32.3 g/dL (29.9-35.2); Mean Corpuscular Hemoglobin 29.5 pg (26.7-34.0); Mean Corpuscular Volume 91.2 fL (81.0-99.0); Mean Platelet Volume 9.4 fL (9.5-13.5); Monocytes Absolute Auto 0.6 10^3/uL (0.3-0.8); Monocytes Percent Auto 4.9 % (1.7-12.0); Neutrophils Absolute Auto 9.5 10^3/uL (1.4-6.5); Platelet Count 349 10^3/uL (150-450); Red Blood Count 3.53 10^6/uL (4.20-5.40); White Blood Count 12.3 10^3/uL (4.0-11.0)
[2023-12-17 15:14] LABS: Glucose 1 Hour 138 mg/dL (<130); Thyroid Stimulating Hormone 0.518 uIU/mL (0.358-3.740)
[2023-12-18 08:12] LABS: HBsAg Screen Negative (Negative)
== END 2023-12-17 12:47 | disposition home or self-care (01) ==
LOC: LAB 12:48
PROVIDERS: Visit Provider Obstetrics & Gynecology
DX: Z13.1 Encounter for screening for diabetes mellitus (principal); Z3A.22 22 weeks gestation of pregnancy; R00.2 Palpitations
CPT/HCPCS: 36415; 82950; 84443; 85025; 87340

== ENCOUNTER 2023-12-21 08:33 | Outpatient (OUT) | payer MEDICAID, SELFPAY ==
--- OUTSIDE RECORDS SUMMARY | 2023-12-21 08:56 | XMS_ITS | CCD ---
Author Organization [facility] Care Team Providers Care Terminal Supervisor Name Role Phone Ana María Smith Unavailable Unavailable Unavailable [place], Tomas Unavailable JEFFRY LUCIA Admitting Unavailable JEFFRY LUCIA Attending Unavailable JEFFRY LUCIA Consulting Unavailable MINA ., BIJAN Admitting Unavailable MINA ., BIJAN Attending Unavailable MINA ., BIJAN Consulting Unavailable Nico ([facility]), THOR Landry Attending Provider [facility] Primary Care Provider Fisher ([facility]), Roz Landry Attending Unavailabl e Rice ([facility]), Roz [facility] Un[facility] Primary Care Provider [phone] Nico ([facility]), THOR Landry Attending Provider [facility] Primary Care Unavailable Fisher ([facility]), Roz Landry Attending Unavailabl e Nico ([facility]), Roz Landry Admitting Unavailabl e JEFFRY [...] February 27, 2020 12:00am polyethylene glycol 3350 29275 mg powder for oral solution (1 source) [...] Fetuson US OB >= 14 weeks Fetus [facility] [place] [address] Ultrasound Report Signed Patient: Arpit Hinkle MR#: [id number] : 1995 Acct:[id number] Age/Sex: 27 / F ADM Date: 10/15/23 Loc: [facility]: [facility]: Roz Walsh ([facility]) THOR Ordering Provider: Roz Walsh APRN, [...] Hubert Rowan M.D.10/15/2023 2:41 PM Dictation Location: [place] [address] Tech: Yanet Xavier Transcribed By: MARCELINA 10/15/23 1441 Dictated By: Hubert Rowan DO 10/15/23 1436 Signed By: 10/15/23 1441 Normal [facility] US OB <= 14 weeks fetuson US OB <= 14 weeks fetus [facility] [place] [address] Ultrasound Report Signed Patient: Arpit Hinkle MR#: [id number] : 1995 Acct:[id number] Age/Sex: 27 / F ADM Date: 07/16/23 Loc: Room: Type: [facility] Attending Dr: Roz Walsh ([facility]) THOR Ordering Provider: Roz Walsh APRN, [...] Mann Jr., D.O.07/16/2023 2:23 PM Dictation Location: [employer] Tech: Gale Richard Transcribed By: PWS 07/16/23 1423 Dictated By: Oh Mann Jr, DO 07/16/23 142 Signed By: 07/16/23 142 Normal [facility] US OB <= 14 weeks fetus [facility] [place] [address] Ultrasound Report Signed Patient: Arpit Hinkle MR#: [id number] : 1995 Acct:[id number] Age/Sex: 27 / F ADM Date: 07/16/23 Loc: Room: Type: [facility] Attending Dr: Roz Walsh ([facility]) THOR Ordering Provider: Roz Walsh APRN, [...] Mann Jr., D.O.07/16/2023 2:23 PM Dictation Location: [employer] Tech: Gale Richard Transcribed By: PWS 07/16/23 1423 Dictated By: Oh Mann Jr, DO 07/16/23 1420 Signed By: 07/16/23 1423 Normal [facility] CHLAMYDIA/GONOCOCCUS HIRAM (SW AB/URINE/PAPon 08-21-2022 Chlamydia trachomatis, HIRAM Negative Normal Negative [facility] Comment on above: Performed By: #### C T/NGNA #### [facility] [address] [place] [address] Dr. Derrick Luna Neisseria gonorrhoeae, HIRAM Negative Normal Negative [facility] Comment on above: Performed By: #### C T/NGNA #### [facility] [address] [place] [address] Dr. Derrick Luna VAGINITIS/VAGINOSIS DNA PROB Devonte 08-20-2022 Alyssa species Negative Normal Negative [facility] Comment on above: Performed By: #### V AGINT #### [facility] [address] [place] [address] Dr. Derrick Luna Gardnerella vaginalis Positive Abnormal Negative [facility] Comment on above: Performed By: #### V AGINT #### [facility] [address] [place] [address] Dr. Derrick Luna Trichomonas vaginalis Negative Normal Negative [facility] Comment on above: Performed By: #### V AGINT #### [facility] [address] [place] [address] Dr. Derrick Luna PAP ACOG PANEL 2: 21 to 29on 08-30-2021 . . Normal [facility] Comment on above: Performed By: #### 4 [id number] #### [facility] [address] [place] [address] Dr. Derrick Luna Age Gdln ACOG Testing - Normal [facility] Comment on above: Performed By: #### 4 [id number] #### [facility] [address] [place] [address] Dr. Derrick Luna DIAGNOSIS: Comment Normal [facility] Comment on above: Result Comment: NEGA TIVE FOR INTRAEPITHELIAL LESION OR MALIGNANCY. THIS SPECIMEN WAS RESCREENED PART OF OUR DIAMOND POWDER MIXER PROGRAM. Performed By: #### 4 [id number] #### [facility] [address] [place] [address] Dr. Derrick Luna Methodology: Comment Normal [facility] Comment on above: Result Comment: This liquid based ThinPrep(R) pap test was screened with the use of an image guided system. Performed By: #### 4 [id number] #### [facility] [address] [place] [address] Dr. Derrick Luna Note: Comment Normal [facility] Comment on above: Result Comment: The Pap smear is a screening test designed to aid in the detection of premalignant and malignant conditions of the uterine cervix. It is not a diagnostic procedure and should not be used as the sole means of detecting cervical cancer. Both false-positive and false-negative reports do occur. . Performed By: #### 4 [id number] #### [facility] [address] [place] [address] Dr. Derrick Luna Performed by: Comment Normal [facility] Comment on above: Result Comment: Ifrah Villa, Double Needle Stitcher (ASCP) Performed By: #### 4 [id number] #### [facility] [address] [place] [address] Dr. Derrick Luna QC reviewed by: Comment Normal [facility] Comment on above: Result Comment: Jorge Mcclain, Double Needle Stitcher (ASCP) Performed By: #### 4 [id number] #### [facility] [address] [place] [address] Dr. Derrick Luna Reflex Criteria: Comment Normal [facility] Comment on above: Result Comment: The HPV DNA reflex criteria were not met with this specimen result therefore, no HPV testing was performed. . Performed By: #### 4 [id number] #### [facility] [address] [place] [address] Dr. Derrick Luna Specimen adequacy: Comment Normal [place] Comment on above: Result Comment: Sati sfactory for evaluation. Endocervical and/or squamous metaplastic cells (endocervical component) are present. Performed By: #### 4 [id number] #### [facility] [address] [place] [address] Dr. Derrick Luna Office Visit (Allergy/Immuno logy)on [...] DAILY. Vitals Vital Signs Recorded: 30Jul2021 03:31PM Rpqalxkjjei91.1 F, Temporal Heart Rate71 Morsbnujyjx54 Blffemcb426 Yocmwxzsq31 Height5 ft 1 in Qcmiuo239 lb BMI Gvmsvudamp59.1 kg/m2 BSA Calculated1.69 Tobacco Useb) No O2 Wgrgtarqll46, RA Physical Exam Constitutional General appearance: Well developed, well nourished, no acute distress. Head and Face Palpation of the face and sinuses: No sinus tenderness, normal cephalic, atraumatic. Eyes Inspection of the conjunctiva and lids: Normal, no injection, no shiners. Ears, Nose, Mouth, and Throat Inspection of the nasal mucosa, septum, and turbinates: Normal without edema or erythema. (more content not included)... Normal [facility] Tobacco Screening.on 022 Tobacco use status CPHS b) No MR-QVYW-BTGC [place] [id number] Work Phone: COMPREHENSIVE PANELon 2021 Albumin [Mass/Vol] 4.7 g/dL Normal 3.4 - 5.0 [facility] Comment on above: Performed By: #### C MP #### [address] [id number] ALP [Catalytic activity/Vol] 60 U/L Normal 33 - 110 [facility] Comment on above: Performed By: #### C MP #### [address] [id number] ALT [Catalytic activity/Vol] 29 U/L Normal 7 - 45 [facility] Comment on above: Result Comment: Rolanda ents treated with Sulfasalazine may generate falsely decreased results for ALT. Performed By: #### C MP #### [address] [id number] Anion gap [Moles/Vol] 12 mmol/L Normal 10 - 20 [facility] Comment on above: Performed By: #### C MP #### [address] [id number] AST [Catalytic activity/Vol] 30 U/L Normal 9 - 39 [facility] Comment on above: Performed By: #### C MP #### [address] [id number] Bilirubin [Mass/Vol] 0.6 mg/dL Normal 0.0 - 1.2 [facility] Comment on above: Performed By: #### C MP #### [address] [id number] Calcium [Mass/Vol] 10.0 mg/dL Normal 8.6 - 10.3 [facility] Comment on above: Performed By: #### C MP #### [address] [id number] Chloride [Moles/Vol] 100 mmol/L Normal 98 - 107 [facility] Comment on above: Performed By: #### C MP #### [address] [id number] Creatinine [Mass/Vol] 0.79 mg/dL Normal 0.50 - 1.05 [facility] Comment on above: Performed By: #### C MP #### [address] [id number] eGFR FEMALE >90 Normal >90 [facility] Comment on above: Result Comment: CALC ULATIONS OF ESTIMATED GFR ARE PERFORMED USING THE 2020 CKD-EPI STUDY REFIT EQUATION WITHOUT THE RACE VARIABLE FOR THE IDMS-TRACEABLE CREATININE METHODS. https://jasn.asnjournals.org/content/early/ASN.49699914 88 Performed By: #### C MP #### [address] [id number] Glucose [Mass/Vol] 85 mg/dL Normal 74 - 99 [facility] Comment on above: Performed By: #### C MP #### [address] [id number] HCO3 (Bld) [Moles/Vol] 29 mmol/L Normal 21 - 32 [facility] Comment on above: Performed By: #### C MP #### [facility] [address] [place], [place] [phone] Potassium [Moles/Vol] 3.9 mmol/L Normal 3.5 - 5.3 [facility] Comment on above: Performed By: #### C MP #### [facility] [address] [place], [place] [id number] Protein [Mass/Vol] 8.2 g/dL Normal 6.4 - 8.2 [facility] Comment on above: Performed By: #### C MP #### [facility] [address] [place], [place] [phone] Sodium [Moles/Vol] 137 mmol/L Normal 136 - 145 [facility] Comment on above: Performed By: #### C MP #### [facility] [address] [place], [place] [id number] Urea nitrogen [Mass/Vol] 14 mg/dL Normal 6 - 23 [facility] Comment on above: Performed By: #### C MP #### [facility] [address] [place], [place] [phone] Laboratory - Chemistry and C hemistry - challengeon 07-18-2021 Albumin BCP dye [Mass/Vol] 4.7 g/dL 3.4 - 5.0 [facility] Work Phone: ALP [Catalytic activity/Vol] 60 U/L 33 - 110 [facility] Work Phone: ALT With P-5'-P [Catalytic activity/Vol] 29 U/L 7 - 45 [facility] Work Phone: Comment on above: Patients treated wit h Sulfasalazine may generate falsely decreased results for ALT. Anion gap [Moles/Vol] 12 mmol/L 10 - 20 [facility] Work Phone: AST With P-5'-P [Catalytic activity/Vol] 30 U/L 9 - 39 [facility] Work Phone: Bilirubin [Mass/Vol] 0.6 mg/dL 0.0 - 1.2 [facility] Work Phone: Calcium [Mass/Vol] 10.0 mg/dL 8.6 - 10.3 [facility] Work Phone: Chloride [Moles/Vol] 100 mmol/L 98 - 107 [facility] Work Phone: CO2 [Moles/Vol] 29 mmol/L 21 - 32 [facility] Work Phone: Creatinine [Mass/Vol] 0.79 mg/dL See Below [facility] Work Phone: Comment on above: Reference Range: 0.5 0 - 1.05 Glucose [Mass/Vol] 85 mg/dL 74 - 99 [facility] Work Phone: Potassium [Moles/Vol] 3.9 mmol/L 3.5 - 5.3 [facility] Work Phone: Protein [Mass/Vol] 8.2 g/dL 6.4 - 8.2 [facility] Work Phone: Sodium [Moles/Vol] 137 mmol/L 136 - 145 [facility] Work Phone: TSH Qn 0.73 m[IU]/L See Below [facility] Work Phone: Comment on above: Reference Range: 0.4 4 - 3.98 TSH testing is performed using different testing methodology at [facility] than at other [facility]. Direct result comparisons should only be made within the same method. Urea nitrogen [Mass/Vol] 14 mg/dL 6 - 23 [facility] Work Phone: No Panel Informationon 07-18 >90 >90 [facility] Work Phone: Comment on above: CALCULATIONS OF [facility] MATED GFR ARE PERFORMED USING THE 2020 CKD-EPI STUDY REFIT EQUATION WITHOUT THE RACE VARIABLE FOR THE IDMS-TRACEABLE CREATININE METHODS.https://jasn.asnjournals.org/content//ASN. 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 History of Present Illness Physical Review of Systems Constitutional: no chills, no fever and no night sweats. Eyes: no blurred vision and no eyesight problems . oph. Genitourinary:. 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 Over the last 2 weeks have you felt down, depressed or hopeless? (If yes, answer PHQ-9 below)No PHQ-2 #2. Over the last 2 weeks have you felt little interest or pleasure in doing things? (If yes, answer PHQ-9 below)No Fvarxjvu635 Jyqkzcfcs44 Erhftzsubvd69.6 F Height5 ft 3 in Rfxbxo148 lb BMI Ghgqkuxeaq81.63 kg/m2 BSA Calculated1.74 Normal [facility] TSH WITH REFLEX TO FREE T4 I F ABNORMALon 07-18-2021 TSH Qn 0.73 m[IU]/L Normal 0.44 - 3.98 [facility] Comment on above: Result Comment: TSH testing is performed using different testing methodology at [facility] than at other [facility]. Direct result comparisons should only be made within the same method. Performed By: #### T [facility] #### [address] [phone] Tobacco Screening.on 022 Adult depression screening assessment No [facility] 125 Work Phone: Tobacco use status CPHS b) No [facility] 125 Work Phone: UA MICROSCOPICon 07-18-2021 Mucus Ql (Urine sed) 2+ /LPF Normal [facility] Comment on above: Performed By: #### U AMIC #### [address] [phone] RBC 6 /HPF Abnormal 0-5 [facility] Comment on above: Performed By: #### U AMIC #### [address] [id number] SQUAMOUS EPITH. CELLS 3 /HPF Normal [facility] Comment on above: Performed By: #### U AMIC #### [address] [id number] WBC 1 /HPF Normal 0-5 [facility] Comment on above: Performed By: #### U AMIC #### [address] [id number] URINALYSISon 07-18-2021 Appearance (U) HAZY Normal CLEAR [facility] Comment on above: Performed By: #### U A #### [address] [phone] Bilirubin Ql (U) Negative Normal NEGATIVE [facility] Comment on above: Performed By: #### U A #### [address] [id number] Color (U) YELLOW Normal STRAW,YELLOW [facility] Comment on above: Performed By: #### U A #### [address] [id number] Glucose Ql (U) Negative Normal NEGATIVE [facility] Comment on above: Performed By: #### U A #### [address] [phone] Hemoglobin Ql (U) MODERATE(2+) Abnormal NEGATIVE [facility] Comment on above: Performed By: #### U A #### [address] [id number] Ketones Ql (U) Negative Normal NEGATIVE [facility] Comment on above: Performed By: #### U A #### [address] [phone] Leukocyte esterase Test strip Ql (U) SMALL (1+) Abnormal NEGATIVE [facility] Comment on above: Performed By: #### U A #### [address] [id number] Nitrite Ql (U) Negative Normal NEGATIVE [facility] Comment on above: Performed By: #### U A #### [address] [phone] pH (U) 5.0 [pH] Normal 5.0 - 8.0 [facility] Comment on above: Performed By: #### U A #### [address] [id number] Protein Ql (U) Negative Normal NEGATIVE [facility] Comment on above: Performed By: #### U A #### [address] [id number] Specific gravity (U) [Rel density] 1.020 Normal 1.005 - 1.035 [facility] Comment on above: Performed By: #### U A #### [address] [id number] Urobilinogen (U) [Mass/Vol] mg/dL Normal 0.0 - 1.9 [facility] Comment on above: Performed By: #### U A #### [address] [phone] Urinalysison 07-18-2021 Color (U) YELLOW See Below [facility] 125 Work Phone: Comment on above: Reference Range: STR AW,YELLOW Glucose Ql (U) Negative NEGATIVE [facility] 125 Work Phone: Ketones Ql (U) Negative NEGATIVE [facility] 125 Work Phone: Leukocyte esterase Test strip Ql (U) SMALL (1+) Abnormal NEGATIVE [facility] 125 Work Phone: pH (U) 5.0 [pH] 5.0 - 8.0 [facility] 125 Work Phone: Protein (U) [Mass/Vol] Negative NEGATIVE [facility] Work Phone: RBC (U) [#/Vol] MODERATE(2+) Abnormal NEGATIVE [facility] 125 Work Phone: Specific gravity (U) [Rel density] 1.020 1 See Below [facility] Work Phone: Comment on above: Reference Range: 1.0 05 - 1.035 Urinalysis Negative NEGATIVE [facility] 125 Work Phone: Urinalysis <2.0 0.0 - 1.9 [facility] 125 Work Phone: Urinalysis HAZY CLEAR [facility] 125 Work Phone: Urinalysis, Microscopicon Urinalysis, Microscopic 2+ [facility] Work Phone: Urinalysis, Microscopic 3 {/HPF} [facility] Work Phone: Urinalysis, Microscopic 6 {/HPF} Abnormal 0-5 [facility] 125 Work Phone: Urinalysis, Microscopic 1 {/HPF} 0-5 [facility] Work Phone: Vital Signs Date Time Vital Sign Value Performing Clinician Laron cazares 07-30-2021 15:31-0500 Body height 154.94 cm Ana María [facility] Work Phone: NV-JZMV-BAYM [place] [address] Work Phone: 07-30-2021 15:31-0500 Body mass index (BMI) [Ratio] 29.1 kg/m2 [facility] Work Phone: FU-FFXT-VIUD [place] [address] Work Phone: 07-30-2021 15:31-0500 Body surface area Derived from formula 1.69 m2 [facility] Work Phone: TY-NQMY-IRFL [place] [address] Work Phone: 07-30-2021 15:31-0500 Body temperature 98.1 [degF] [facility] Work Phone: WD-BNDR-JKKO [place] [address] Work Phone: 07-30-2021 15:31-0500 Body weight 69.85 kg [facility] Work Phone: GT-ZZEX-PUFK [place] [address] Work Phone: 07-30-2021 15:31-0500 Diastolic blood pressure 68 mm[Hg] [facility] Work Phone: CN-LCTT-IKBB [place] [address] Work Phone: 07-30-2021 15:31-0500 Heart rate 71 /min [facility] Work Phone: PK-OXZX-ULXC [place] [address] Work Phone: 07-30-2021 15:31-0500 Respiratory rate 17 /min [facility] Work Phone: AO-ZVJQ-FYAT [place] [address] Work Phone: 07-30-2021 15:31-0500 SaO2% (BldA) [Mass fraction] 98 % [facility] Work [facility]: [facility] [address] Work Phone: 07-30-2021 15:31-0500 Systolic blood pressure 110 mm[Hg] [facility] Work Phone: [facility] [address] Work Phone: 07-18-2021 14:44-0500 Diastolic blood pressure 70 mm[Hg] [facility] Work Phone: [facility] 125 Work Phone: 07-18-2021 14:44-0500 Systolic blood pressure 116 mm[Hg] [facility] Work Phone: [facility] Work Phone: 07-18-2021 14:37-0500 Body height 160.02 cm [facility] Work Phone: [facility] 125 Work Phone: 07-18-2021 14:37-0500 Body mass index (BMI) [Ratio] 27.63 kg/m2 [facility] Work Phone: [facility] Work Phone: 07-18-2021 14:37-0500 Body surface area Derived from formula 1.74 m2 [facility] Work Phone: [facility] Work Phone: 07-18-2021 14:37-0500 Body temperature 98.6 [degF] [facility] Work Phone: [facility] 125 Work Phone: 07-18-2021 14:37-0500 Body weight 70.76 kg Ana María [facility] Work Phone: [facility] 125 Work Phone: 05-18-2021 15:40-0500 Body height 160.02 cm Tomas Claire Other [facility] Other 05-18-2021 15:40-0500 Body mass index (BMI) [Ratio] 25.68 kg/m2 Tomas Claire Other [facility] Other 05-18-2021 15:40-0500 Body temperature 98.4 [degF] Tomas Claire Other [facility] Other 05-18-2021 15:40-0500 Body weight 65.77 kg Tomas Claire Other [facility] Other 05-18-2021 15:40-0500 Respiratory rate 18 /min Tomas Claire Other [facility] Other 05-18-2021 15:40-0500 SaO2% (BldA) [Mass fraction] 97 % Tomas Claire Other [facility] Other Encounters Encounter Date Encounter Type Care Provider Facility Start: 11-11-2023 End: 11-11-2023 ambulatory JEFFRY KHARI Not Available Start: 10-29-2023 End: 10-29-2023 ambulatory JEFFRY KHARI Not Available Start: 10-15-2023 End: 10-15-2023 ambulatory [facility] Start: 10-15-2023 End: 10-15-2023 ambulatory [facility] Work Phone: [facility] Work Phone: Start: 10-15-2023 End: 10-15-2023 Patient encounter procedure [facility] Work Phone: [facility] [place] Work Phone: Start: 07-16-2023 End: 07-16-2023 ambulatory Roz Walsh ([facility]) Facility:[facility] Start: 07-16-2023 End: 07-16-2023 ambulatory [facility] Work Phone: [facility] Work Phone: Start: 07-16-2023 End: 07-16-2023 [facility] encounter [facility] Work Phone: [facility] [place] Work Phone: Start: 08-18-2022 End: 08-18-2022 ambulatory BIJAN ENRIQUEZ . Facility:[facility] Start: 08-26-2021 End: 08-26-2021 ambulatory JEFFRY LUCIA Facility:[facility] Start: 07-30-2021 Office consultation new/estab patient 60 min [facility] Work Phone: Start: 07-19-2021 Chart Update [facility] Work Phone: [facility] Work Phone: Start: 07-18-2021 Office outpatient ne w 30 minutes [facility] Work Phone: [facility] 125 Work Phone: Start: 05-18-2021 End: 05-18-2021 ambulatory Tomas Claire Other [employer] Other Start: 05-18-2021 Office outpatient ne w 30 minutes Tomas Claire [facility] [address] Procedures Date Procedure Procedure Detail Performing Clinician Start: 10-15-2023 Diagnostic ultrasoun d of gravid uterus [facility] Work Phone: Start: 07-16-2023 Diagnostic ultrasoun d of gravid uterus [facility] Work Phone: Plan of Treatment Date Care Activity Detail Author Start: 07-30-2021 NPV, Provider: Lita Barriga, Status: Pen, Time: 3:10 PM NPV, Provider: Lita Barriga, Status: Pen, Time: 3:10 PM [facility] 125 Work Phone: Immunizations Immunization Date Immunization Notes Care Provider Janee [email or web address] 01-10-2021 Pfizer-BioNTech COVID-19 Vacc 30 MCG/0.3ML Intramuscular Suspension [facility]: [facility] Work Phone: 01-20-2002 diphtheria, tetanus toxoids and acellular pertussis vaccine, unspecified formulation [facility] Work Phone: [facility] 125 Work Phone: 01-20-2002 hepatitis B vaccine, pediatric or pediatric/adolescent dosage [facility] Work Phone: [facility] Work Phone: 01-20-2002 measles, mumps and rubella virus vaccine [facility] Work Phone: [facility] 125 Work Phone: 01-20-2002 poliovirus vaccine, inactivated [facility] Work Phone: [facility] 125 Work Phone: 08-05-1999 diphtheria, tetanus toxoids and acellular pertussis vaccine, unspecified formulation [facility] Work Phone: [facility] 125 Work Phone: 08-05-1999 haemophilus influenz ae type b vaccine, conjugate unspecified formulation [facility] Work Phone: [facility] 125 Work Phone: 08-05-1999 measles, mumps and rubella virus vaccine [facility] Work Phone: [facility] 125 Work Phone: Payers Date Payer Category Payer Medicaid [id number] 2023 Self-pay 1995 Unknown [id number] 1995 Unknown [id number] [id number] 1996 Unknown [id number] 2.16.84 [id number] 1996 Unknown [id number] 2.16.84 [id number] 1959 Unknown [id number] Unknown ANTHEM Unknown [id number] 2.16.8 [id number] Unknown HCAP/HFA/FAP Active [id number] Unknown [id number] 2.16.8 [id number] Social History Date Type Detail Facility Never smoked cigarettes Never smoked cigarettes Data Impact [facility] [employer] Other Sex Assigned At Sex Assigned At [facility] Other Start: 1995 Sex Assigned At Female F [facility] Start: 02-27-2020 Tobacco smoking stat us NHIS Never smoked tobacco (finding) [facility] History of Present illness Narrative 06-08-2021 Note [...] to illness or ingestion. ? heat exposure. [place] [facility] Work Phone: History of Present illness Narrative [...] to illness or ingestion. ? heat exposure. [id number] [place] [address] Work Phone: Evaluation note 05-18-2021 Note Date & Type Note Facility 05-18-2021 Evaluation note Encounter Date Diagnosis Assessment Notes May, Acute urticaria (ICD-10 - L50.8) Take benadryl 50 mg at night for rash. Drink plenty of fluids. Do not perez or use any tanning lotion. Take medicine as prescribed. If symptoms return you may need to see an medical artist. I considered/disc ussed prescription medicine with the patient. No evidence of anaphylaxis. Etiology of allergy unknown. If she develops sob, wheezing, N/V, or swelling in her lips, she is advised to go to the ER immediately. Advised pt to follow up with medical artist if she develops returning symptoms. Will tx today with kenalog injections and medrol dose pack. Also advised to take benadryl as directed until rash clears. Pt understands and agrees with the plan. [facility] Other Evaluation note Note Date & Type Note Facility Evaluation note No assessment information [facility] Work Phone: History of Present illness Narrative Note Date & Type Note Facility History of Present illness Narrative Physical -[facility] 125 Work Phone: Chief Complaint Patient presented today to [facility].New patient here to discuss rash, PCP is [...] section and content) DATE CREATED AUTHOR 07/31/2021 [facility] DATE CREATED AUTHOR AUTHOR'S ORGANIZ ATION 07/31/2021 [employer] DATE CREATED AUTHOR AUTHOR'S ORGANIZ ATION 08/24/2022 [facility] DATE CREATED AUTHOR AUTHOR'S ORGANIZ ATION 07/31/2023 [facility] DATE CREATED AUTHOR AUTHOR'S ORGANIZ ATION 10/30/2023 [facility] DATE CREATED AUTHOR AUTHOR'S ORGANIZ ATION 11/12/2023 [facility] EPIC REASON FOR VISIT (unrecogniz ed section and content) rash on arms, back, legs Care Teams (unrecognized sec tion and content) Team Status: Active Member Role Status Dates [facility] Primary Care Provider Active Team Status: Inactive Member Role Status Dates [facility] Attending Provider Active Start: July 16, 2023 End: July 16, 2023 Sen [facility] Primary Care Provider Active Start: July 16, 2023 End: July 16, 2023 Team Status: Inactive Member Role Status Dates [facility] Primary Care Provider Active Start: October 15, 2023 End: October 15, 2023 [facility] Attending Provider Active Start: October [...] BE BASED ON THE PRIMARY CLINICAL RECORDS. [facility]. provides no warranty or guarantee of the accuracy or completeness of information in this document.
[2023-12-21 09:15] LABS: Glucose Fasting 84 mg/dL (<95)
[2023-12-21 12:58] LABS: Estimated Average Glucose 105 mg/dL; Glycohemoglobin A1C 5.3 % (4.5-6.2)
== END 2023-12-21 08:34 | disposition home or self-care (01) ==
LOC: LAB 08:33
PROVIDERS: Visit Provider Obstetrics & Gynecology
DX: R73.09 Other abnormal glucose (principal)
CPT/HCPCS: 36415; 82951; 82952; 83036

== ENCOUNTER 2023-12-31 10:43 | Outpatient (OUT) | payer OTHER, SELFPAY ==
--- NOTE | 2023-12-31 10:45 | US_ITS ---
[address] [address] Patient Name: ARPIT HINKLE MRN: [id number] date: 1995 Sex: F Assigned Patient Location: [facility] Current Patient Location: [facility] Accession/Order Number: [id number] Exam Date: 12/31/2023 10:45 Report Date: 12/31/2023 12:21 At the request of: JEFFRY LUCIA Procedure: US OB growth EXAMINATION: US OB growth HISTORY: LARGE FOR GESTATIONAL AGE COMPARISON: No relevant comparison available. FINDINGS: Heart Rate: 148 bpm Amniotic Fluid Volume: 14.0 cm; normal range. Number: 1 Position: CEPHALIC BIOMETRY: BPD: 7.60 cm; 30 weeks 3 days; 14.90 % HC: 29.12 cm; 32 weeks 1 day; 30.20 % AC: 27.10 cm; 31 weeks 1 day; 39.90 % FL: 6.05 cm; 31 weeks 3 days; 36.70 % EFW: 1636.93 g; 33.90 % FL/AC: 22.32 FL/BPD: 79.61 HC/AC: 1.07 GESTATIONAL AGE: Age by EDC: 31 weeks 3 days CESAR by EDC: 2024-02-29 Age by US: 31 weeks 2 days CESAR by US: 2024-03-01 US/US OB growth IMPRESSION: 1. Single live intrauterine with growth detailed above. Electronically authenticated by: AIMEE LEONARD Date: 12/31/2023 12:21
--- OUTSIDE RECORDS SUMMARY | 2023-12-31 10:51 | XMS_ITS | CCD ---
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 Role Phone Ana María Smith Unavailable Unavailable Unavailable Buda, Tomas Unavailable JEFFRY LUCIA Admitting Unavailable JEFFRY LUCIA Attending Unavailable JEFFRY LUCIA Consulting Unavailable MINA ., BIJAN Admitting Unavailable MINA ., BIJAN Attending Unavailable MINA ., BIJAN Consulting Unavailable Nico ([facility]), THOR Landry Attending Provider [facility] Primary Care Provider Velma ([facility]), Roz Landry Attending Unavailabl e Velma ([facility]), [facility] Un[facility] Primary Care Provider Nico ([facility]), THOR Landry Attending Provider [facility] Primary Care Unavailable Velma ([facility]), Roz Landry Attending Unavailabl e Nico ([facility]), Roz Landry Admitting Unavailabl e JEFFRY [...] February 27, 2020 12:00am polyethylene glycol 3350 29371 mg powder for oral solution (1 source) [...] US OB >= 14 weeks Fetus [facility] [address] Ultrasound Report Signed Patient: Arpit Hinkle MR#: [id number] : 1995 Acct:[id number] Age/Sex: 27 / F ADM Date: 10/15/23 Loc: [facility]: [facility]: Roz Walsh ([facility]) THOR Ordering Provider: Roz Walsh APRN, [...] Hubert Rowan M.D.10/15/2023 2:41 PM Dictation Location: [place] [address] Tech: Yanet Xavier Transcribed By: MARCELINA 10/15/23 1441 Dictated By: Hubert Rowan DO 10/15/23 1436 Signed By: 10/15/23 1441 Normal [facility] US OB <= 14 weeks fetuson US OB <= 14 weeks fetus [facility] [address] Ultrasound Report Signed Patient: Arpit Hinkle MR#: [id number] : 1995 Acct:[id number] Age/Sex: 27 / F ADM Date: 07/16/23 Loc: Room: Type: [facility] Attending Dr: Roz Walsh ([facility]) THOR Ordering Provider: Roz Walsh APRN, [...] Mann Jr., D.O.07/16/2023 2:23 PM Dictation Location: [employer] Tech: Gale Richard Transcribed By: PWS 07/16/23 1423 Dictated By: Oh Mann Jr, DO 07/16/23 142 Signed By: 07/16/23 142 Normal [facility] US OB <= 14 weeks fetus [facility] [address] Ultrasound Report Signed Patient: Arpit Hinkle MR#: [id number] : 1995 Acct:[id number] Age/Sex: 27 / F ADM Date: 07/16/23 Loc: Room: Type: [facility] Attending Dr: Roz Walsh ([facility]) THOR Ordering Provider: Roz Walsh APRN, [...] Mann Jr., D.O.07/16/2023 2:23 PM Dictation Location: [employer] Tech: Gale Richard Transcribed By: PWS 07/16/23 1423 Dictated By: Oh Mann Jr, DO 07/16/23 1420 Signed By: 07/16/23 1423 Normal [facility] CHLAMYDIA/GONOCOCCUS HIRAM (SW AB/URINE/PAPon 08-21-2022 Chlamydia trachomatis, HIRAM Negative Normal Negative [facility] Comment on above: Performed By: #### C T/NGNA #### [facility] [address] [place] [address] Dr. Derrick Luna Neisseria gonorrhoeae, HIRAM Negative Normal Negative [facility] Comment on above: Performed By: #### C T/NGNA #### [facility] [address] [place] [address] Dr. Derrick Luna VAGINITIS/VAGINOSIS DNA PROB Devonte 08-20-2022 Alyssa species Negative Normal Negative [facility] Comment on above: Performed By: #### V AGINT #### [facility] [address] [place] [address] Dr. Derrick Luna Gardnerella vaginalis Positive Abnormal Negative [facility] Comment on above: Performed By: #### V AGINT #### [facility] [address] [place] [address] Dr. Derrick Luna Trichomonas vaginalis Negative Normal Negative [facility] Comment on above: Performed By: #### V AGINT #### [facility] [address] [place] [address] Dr. Derrick Luna PAP ACOG PANEL 2: 21 to 29on 08-30-2021 . . Normal [facility] Comment on above: Performed By: #### 4 [id number] #### [facility] [address] [place] [address] Dr. Derrick Luna Age Gdln ACOG Testing - Normal [facility] Comment on above: Performed By: #### 4 [id number] #### [facility] [address] [place] [address] Dr. Derrick Luna DIAGNOSIS: Comment Normal [facility] Comment on above: Result Comment: NEGA TIVE FOR INTRAEPITHELIAL LESION OR MALIGNANCY. THIS SPECIMEN WAS RESCREENED PART OF OUR CURRICULUM ASSISTANT PROGRAM. Performed By: #### 4 [id number] #### [facility] [address] [place] [address] Dr. Derrick Luna Methodology: Comment Normal [facility] Comment on above: Result Comment: This liquid based ThinPrep(R) pap test was screened with the use of an image guided system. Performed By: #### 4 [id number] #### [facility] [address] [place] [address] Dr. Derrick Luna Note: Comment Normal [facility] Comment on above: Result Comment: The Pap smear is a screening test designed to aid in the detection of premalignant and malignant conditions of the uterine cervix. It is not a diagnostic procedure and should not be used as the sole means of detecting cervical cancer. Both false-positive and false-negative reports do occur. . Performed By: #### 4 [id number] #### [facility] [address] [place] [address] Dr. Derrick Luna Performed by: Comment Normal [facility] Comment on above: Result Comment: Ifrah Villa, Speeder Machine Operator (ASCP) Performed By: #### 4 [id number] #### [facility] [address] [place] [address] Dr. Derrick Luna QC reviewed by: Comment Normal [facility] Comment on above: Result Comment: Jorge Mcclain, Speeder Machine Operator (ASCP) Performed By: #### 4 [id number] #### [facility] [address] [place] [address] Dr. Derrick Luna Reflex Criteria: Comment Normal [facility] Comment on above: Result Comment: The HPV DNA reflex criteria were not met with this specimen result therefore, no HPV testing was performed. . Performed By: #### 4 [id number] #### [facility] [address] [place] [address] Dr. Derrick Luna Specimen adequacy: Comment Normal [facility] Comment on above: Result Comment: Sati sfactory for evaluation. Endocervical and/or squamous metaplastic cells (endocervical component) are present. Performed By: #### 4 [id number] #### [facility] [address] [place] [address] Dr. Derrick Luna Office Visit (Allergy/Immuno logy)on [...] DAILY. Vitals Vital Signs Recorded: 30Jul2021 03:31PM Ifuvidcoiet68.1 F, Temporal Heart Rate71 Bsiqikdrqkg89 Pkuoijdx550 Rsyxkdqze42 Height5 ft 1 in Ykunwr182 lb BMI Wvlozczjzq40.1 kg/m2 BSA Calculated1.69 Tobacco Useb) No O2 Smacxrkzeg07, RA Physical Exam Constitutional General appearance: Well developed, well nourished, no acute distress. Head and Face Palpation of the face and sinuses: No sinus tenderness, normal cephalic, atraumatic. Eyes Inspection of the conjunctiva and lids: Normal, no injection, no shiners. Ears, Nose, Mouth, and Throat Inspection of the nasal mucosa, septum, and turbinates: Normal without edema or erythema. (more content not included)... Normal [employer] Tobacco Screening.on 022 Tobacco use status CPHS b) No [id number]-VON[facility] [place] [id number] Work Phone: COMPREHENSIVE PANELon 2021 Albumin [Mass/Vol] 4.7 g/dL Normal 3.4 - 5.0 [facility] Comment on above: Performed By: #### C MP #### [address] [id number] ALP [Catalytic activity/Vol] 60 U/L Normal 33 - 110 [facility] Comment on above: Performed By: #### C MP #### [address] [id number] ALT [Catalytic activity/Vol] 29 U/L Normal 7 - 45 [facility] Comment on above: Result Comment: Rolanda ents treated with Sulfasalazine may generate falsely decreased results for ALT. Performed By: #### C MP #### [address] [id number] Anion gap [Moles/Vol] 12 mmol/L Normal 10 - 20 [facility] Comment on above: Performed By: #### C MP #### [address] [id number] AST [Catalytic activity/Vol] 30 U/L Normal 9 - 39 [facility] Comment on above: Performed By: #### C MP #### [address] [id number] Bilirubin [Mass/Vol] 0.6 mg/dL Normal 0.0 - 1.2 [facility] Comment on above: Performed By: #### C MP #### [address] [id number] Calcium [Mass/Vol] 10.0 mg/dL Normal 8.6 - 10.3 [facility] Comment on above: Performed By: #### C MP #### [address] [id number] Chloride [Moles/Vol] 100 mmol/L Normal 98 - 107 [facility] Comment on above: Performed By: #### C MP #### [address] [id number] Creatinine [Mass/Vol] 0.79 mg/dL Normal 0.50 - 1.05 [facility] Comment on above: Performed By: #### C MP #### [address] [id number] eGFR FEMALE >90 Normal >90 [facility] Comment on above: Result Comment: CALC ULATIONS OF ESTIMATED GFR ARE PERFORMED USING THE 2020 CKD-EPI STUDY REFIT EQUATION WITHOUT THE RACE VARIABLE FOR THE IDMS-TRACEABLE CREATININE METHODS. https://jasn.asnjournals.org/content/early/ASN.64306616 88 Performed By: #### C MP #### [address] [id number] Glucose [Mass/Vol] 85 mg/dL Normal 74 - 99 [facility] Comment on above: Performed By: #### C MP #### [address] [id number] HCO3 (Bld) [Moles/Vol] 29 mmol/L Normal 21 - 32 [facility] Comment on above: Performed By: #### C MP #### [facility] [address] [place], [place] [id number] Potassium [Moles/Vol] 3.9 mmol/L Normal 3.5 - 5.3 [facility] Comment on above: Performed By: #### C MP #### [facility] [address] [place], [place] [id number] Protein [Mass/Vol] 8.2 g/dL Normal 6.4 - 8.2 [facility] Comment on above: Performed By: #### C MP #### [facility] [address] [place], [place] [id number] Sodium [Moles/Vol] 137 mmol/L Normal 136 - 145 [facility] Comment on above: Performed By: #### C MP #### [facility] [address], [place] [id number] Urea nitrogen [Mass/Vol] 14 mg/dL Normal 6 - 23 [facility] Comment on above: Performed By: #### C MP #### [facility] [address], [place] [id number] Laboratory - Chemistry and C hemistry - challengeon 07-18-2021 Albumin BCP dye [Mass/Vol] 4.7 g/dL 3.4 - 5.0 [facility] Work Phone: ALP [Catalytic activity/Vol] 60 U/L 33 - 110 [facility] Work Phone: ALT With P-5'-P [Catalytic activity/Vol] 29 U/L 7 - 45 [facility] Work Phone: Comment on above: Patients treated wit h Sulfasalazine may generate falsely decreased results for ALT. Anion gap [Moles/Vol] 12 mmol/L 10 - 20 [facility] Work Phone: AST With P-5'-P [Catalytic activity/Vol] 30 U/L 9 - 39 [facility] Work Phone: Bilirubin [Mass/Vol] 0.6 mg/dL 0.0 - 1.2 [facility] Work Phone: Calcium [Mass/Vol] 10.0 mg/dL 8.6 - 10.3 [facility] Work Phone: Chloride [Moles/Vol] 100 mmol/L 98 - 107 [facility] Work Phone: CO2 [Moles/Vol] 29 mmol/L 21 - 32 [facility] Work Phone: Creatinine [Mass/Vol] 0.79 mg/dL See Below [facility] Work Phone: Comment on above: Reference Range: 0.5 0 - 1.05 Glucose [Mass/Vol] 85 mg/dL 74 - 99 [facility] Work Phone: Potassium [Moles/Vol] 3.9 mmol/L 3.5 - 5.3 [facility] Work Phone: Protein [Mass/Vol] 8.2 g/dL 6.4 - 8.2 [facility] Work Phone: Sodium [Moles/Vol] 137 mmol/L 136 - 145 [facility] Work Phone: TSH Qn 0.73 m[IU]/L See Below [facility] Work Phone: Comment on above: Reference Range: 0.4 4 - 3.98 TSH testing is performed using different testing methodology at [facility] than at other [facility]. Direct result comparisons should only be made within the same method. Urea nitrogen [Mass/Vol] 14 mg/dL 6 - 23 [facility] Work Phone: No Panel Informationon 07-18 >90 >90 [facility] Work Phone: Comment on above: CALCULATIONS OF [facility] MATED GFR ARE PERFORMED USING THE 2020 CKD-EPI STUDY REFIT EQUATION WITHOUT THE RACE VARIABLE FOR THE IDMS-TRACEABLE CREATININE METHODS.https://jasn.asnjournals.org/content//ASN. 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 History of Present Illness Physical Review of Systems Constitutional: no chills, no fever and no night sweats. Eyes: no blurred vision and no eyesight problems . oph. 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 Over the last 2 weeks have you felt down, depressed or hopeless? (If yes, answer PHQ-9 below)No PHQ-2 #2. Over the last 2 weeks have you felt little interest or pleasure in doing things? (If yes, answer PHQ-9 below)No Sqtencrj043 Kokizsrrf82 Mshukssmggt64.6 F Height5 ft 3 in Tnrwwz606 lb BMI Joqjsybjaa57.63 kg/m2 BSA Calculated1.74 Normal [employer] TSH WITH REFLEX TO FREE T4 I F ABNORMALon 07-18-2021 TSH Qn 0.73 m[IU]/L Normal 0.44 - 3.98 [facility] Comment on above: Result Comment: TSH testing is performed using different testing methodology at [facility] than at other [facility]. Direct result comparisons should only be made within the same method. Performed By: #### T [facility] #### [address] [id number] Tobacco Screening.on 022 Adult depression screening assessment No [facility] 125 Work Phone: Tobacco use status CPHS b) No [facility] 125 Work Phone: UA MICROSCOPICon 07-18-2021 Mucus Ql (Urine sed) 2+ /LPF Normal [facility] Comment on above: Performed By: #### U AMIC #### [address] [id number] RBC 6 /HPF Abnormal 0-5 [facility] Comment on above: Performed By: #### U AMIC #### [address] [id number] SQUAMOUS EPITH. CELLS 3 /HPF Normal [facility] Comment on above: Performed By: #### U AMIC #### [address] [id number] WBC 1 /HPF Normal 0-5 [facility] Comment on above: Performed By: #### U AMIC #### [address] [id number] URINALYSISon 07-18-2021 Appearance (U) HAZY Normal CLEAR [facility] Comment on above: Performed By: #### U A #### [address] [id number] Bilirubin Ql (U) Negative Normal NEGATIVE [facility] Comment on above: Performed By: #### U A #### [address] [id number] Color (U) YELLOW Normal STRAW,YELLOW [facility] Comment on above: Performed By: #### U A #### [address] [id number] Glucose Ql (U) Negative Normal NEGATIVE [facility] Comment on above: Performed By: #### U A #### [address] [id number] Hemoglobin Ql (U) MODERATE(2+) Abnormal NEGATIVE [facility] Comment on above: Performed By: #### U A #### [address] [id number] Ketones Ql (U) Negative Normal NEGATIVE [facility] Comment on above: Performed By: #### U A #### [address] [id number] Leukocyte esterase Test strip Ql (U) SMALL (1+) Abnormal NEGATIVE [facility] Comment on above: Performed By: #### U A #### [address] [id number] Nitrite Ql (U) Negative Normal NEGATIVE [facility] Comment on above: Performed By: #### U A #### [address] [id number] pH (U) 5.0 [pH] Normal 5.0 - 8.0 [facility] Comment on above: Performed By: #### U A #### [address] [id number] Protein Ql (U) Negative Normal NEGATIVE [facility] Comment on above: Performed By: #### U A #### [address] [id number] Specific gravity (U) [Rel density] 1.020 Normal 1.005 - 1.035 [facility] Comment on above: Performed By: #### U A #### [address] [id number] Urobilinogen (U) [Mass/Vol] mg/dL Normal 0.0 - 1.9 [facility] Comment on above: Performed By: #### U A #### [address] [id number] Urinalysison 07-18-2021 Color (U) YELLOW See Below [facility] 125 Work Phone: Comment on above: Reference Range: STR AW,YELLOW Glucose Ql (U) Negative NEGATIVE [facility] 125 Work Phone: Ketones Ql (U) Negative NEGATIVE [facility] 125 Work Phone: Leukocyte esterase Test strip Ql (U) SMALL (1+) Abnormal NEGATIVE [facility] 125 Work Phone: pH (U) 5.0 [pH] 5.0 - 8.0 [facility] 125 Work Phone: Protein (U) [Mass/Vol] Negative NEGATIVE [facility] Work Phone: RBC (U) [#/Vol] MODERATE(2+) Abnormal NEGATIVE [facility] 125 Work Phone: Specific gravity (U) [Rel density] 1.020 1 See Below [facility] Work Phone: Comment on above: Reference Range: 1.0 05 - 1.035 Urinalysis Negative NEGATIVE [facility] 125 Work Phone: Urinalysis <2.0 0.0 - 1.9 [facility] 125 Work Phone: Urinalysis HAZY CLEAR [facility] 125 Work Phone: Urinalysis, Microscopicon Urinalysis, Microscopic 2+ [facility] Work Phone: Urinalysis, Microscopic 3 {/HPF} [facility] Work Phone: Urinalysis, Microscopic 6 {/HPF} Abnormal 0-5 [facility] 125 Work Phone: Urinalysis, Microscopic 1 {/HPF} 0-5 [facility] Work Phone: Vital Signs Date Time Vital Sign Value Performing Clinician Laron cazares 07-30-2021 15:31-0500 Body height 154.94 cm Ana María [facility] Work Phone: HO-[id number]-CBMU [place] [address] Work Phone: 07-30-2021 15:31-0500 Body mass index (BMI) [Ratio] 29.1 kg/m2 [facility] Work Phone: XZ-EGSW-PCRH [place] [address] Work Phone: 07-30-2021 15:31-0500 Body surface area Derived from formula 1.69 m2 [facility] Work Phone: QQ-ADSV-IRUS [place] [address] Work Phone: 07-30-2021 15:31-0500 Body temperature 98.1 [degF] [facility] Work Phone: KD-FMHS-PDHX [place] [address] Work Phone: 07-30-2021 15:31-0500 Body weight 69.85 kg [facility] Work Phone: AI-XLBZ-RIYZ [place] [address] Work Phone: 07-30-2021 15:31-0500 Diastolic blood pressure 68 mm[Hg] [facility] Work Phone: NJ-HTIV-AAPX [place] [address] Work Phone: 07-30-2021 15:31-0500 Heart rate 71 /min [facility] Work Phone: LL-SMSS-JEJV [place] [address] Work Phone: 07-30-2021 15:31-0500 Respiratory rate 17 /min [facility] Work Phone: IP-PGVU-BNQN [place] [address] Work Phone: 07-30-2021 15:31-0500 SaO2% (BldA) [Mass fraction] 98 % [facility] Work Phone: [facility] [address] Work Phone: 07-30-2021 15:31-0500 Systolic blood pressure 110 mm[Hg] [facility] Work Phone: [facility] [address] Work Phone: 07-18-2021 14:44-0500 Diastolic blood pressure 70 mm[Hg] [facility] Work Phone: [facility] 125 Work Phone: 07-18-2021 14:44-0500 Systolic blood pressure 116 mm[Hg] [facility] Work Phone: [facility] Work Phone: 07-18-2021 14:37-0500 Body height 160.02 cm [facility] Work Phone: [facility] 125 Work Phone: 07-18-2021 14:37-0500 Body mass index (BMI) [Ratio] 27.63 kg/m2 [facility] Work Phone: [facility] Work Phone: 07-18-2021 14:37-0500 Body surface area Derived from formula 1.74 m2 [facility] Work Phone: [facility] Work Phone: 07-18-2021 14:37-0500 Body temperature 98.6 [degF] [facility] Work Phone: [facility] 125 Work Phone: 07-18-2021 14:37-0500 Body weight 70.76 kg Ana María [facility] Work Phone: [facility] 125 Work Phone: 05-18-2021 15:40-0500 Body height 160.02 cm Tomas Claire Other [employer] Other 05-18-2021 15:40-0500 Body mass index (BMI) [Ratio] 25.68 kg/m2 Tomas Claire Other [employer] Other 05-18-2021 15:40-0500 Body temperature 98.4 [degF] Tomas Claire Other [employer] Other 05-18-2021 15:40-0500 Body weight 65.77 kg Tomas Claire Other [employer] Other 05-18-2021 15:40-0500 Respiratory rate 18 /min Tomas Claire Other [employer] Other 05-18-2021 15:40-0500 SaO2% (BldA) [Mass fraction] 97 % Tomas Claire Other [employer] Other Encounters Encounter Date Encounter Type Care Provider Facility Start: 11-11-2023 End: 11-11-2023 ambulatory JEFFRY KHARI Not Available Start: 10-29-2023 End: 10-29-2023 ambulatory JEFFRY KHARI Not Available Start: 10-15-2023 End: 10-15-2023 ambulatory [facility] Facility:[facility] Start: 10-15-2023 End: 10-15-2023 ambulatory [facility] Work Phone: [facility] Work Phone: Start: 10-15-2023 End: 10-15-2023 Patient encounter procedure [facility] Work Phone: [facility] [place] Work Phone: Start: 07-16-2023 End: 07-16-2023 ambulatory Roz Walsh ([facility]) Facility:[facility] Start: 07-16-2023 End: 07-16-2023 ambulatory [facility] Work Phone: [facility] Work Phone: Start: 07-16-2023 End: 07-16-2023 Patient encounter procedure [facility] Work Phone: [facility] [place] Work Phone: Start: 08-18-2022 End: 08-18-2022 ambulatory BIJAN ENRIQUEZ . Facility:[facility] Start: 08-26-2021 End: 08-26-2021 ambulatory JEFFRY LUCIA Facility:[facility] Start: 07-30-2021 Office consultation new/estab patient 60 min [facility] Work Phone: [id number] Work Phone: Start: 07-19-2021 Chart Update [facility] Work Phone: [facility] Work Phone: Start: 07-18-2021 Office outpatient ne w 30 minutes [facility] Work Phone: [facility] 125 Work Phone: Start: 05-18-2021 End: 05-18-2021 ambulatory Tomas Claire Other [employer] Other Start: 05-18-2021 Office outpatient ne w 30 minutes Tomas Claire [facility] [address] Procedures Date Procedure Procedure Detail Performing Clinician Start: 10-15-2023 Diagnostic ultrasoun d of gravid uterus [facility] Work Phone: Start: 07-16-2023 Diagnostic ultrasoun d of gravid uterus [facility] Work Phone: Plan of Treatment Date Care Activity Detail Author Start: 07-30-2021 NPV, Provider: Lita Barriga, Status: Pen, Time: 3:10 PM NPV, Provider: Lita Barriga, Status: Pen, Time: 3:10 PM [facility] 125 Work Phone: Immunizations Immunization Date Immunization Notes Care Provider Janee lizzjesus 01-10-2021 Pfizer-BioNTech COVID-19 Vacc 30 MCG/0.3ML Intramuscular Suspension [facility] Work Phone: [facility] Work Phone: 01-20-2002 diphtheria, tetanus toxoids and acellular pertussis vaccine, unspecified formulation [facility] Work Phone: [facility] 125 Work Phone: 01-20-2002 hepatitis B vaccine, pediatric or pediatric/adolescent dosage [facility] Work Phone: [facility] Work Phone: 01-20-2002 measles, mumps and rubella virus vaccine [facility] Work Phone: [facility] 125 Work Phone: 01-20-2002 poliovirus vaccine, inactivated [facility] Work Phone: [facility] 125 Work Phone: 08-05-1999 diphtheria, tetanus toxoids and acellular pertussis vaccine, unspecified formulation [facility] Work Phone: [facility] 125 Work Phone: 08-05-1999 haemophilus influenz ae type b vaccine, conjugate unspecified formulation [facility] Work Phone: [facility] 125 Work Phone: 08-05-1999 measles, mumps and rubella virus vaccine [facility] Work Phone: [facility] 125 Work Phone: Payers Date Payer Category Payer Medicaid [id number] 2023 Self-pay 1995 Unknown [id number] 1995 Unknown [id number] [id number] 1996 Unknown [id number] 2.16.84 [id number] 1996 Unknown [id number] 2.16.84 [id number] 1959 Unknown [id number] Unknown ANTHEM Unknown [id number] 2.16.8 [id number] Unknown HCAP/HFA/FAP Active [id number] Unknown [id number] 2.16.8 [id number] Social History Date Type Detail Facility Never smoked cigarettes Never smoked cigarettes [facility] [employer] Other Sex Assigned At Sex Assigned At [employer] Other Start: 1995 Sex Assigned At Female F [facility] Start: 02-27-2020 Tobacco smoking stat us NHIS Never smoked tobacco (finding) [facility] History of Present illness Narrative 06-08-2021 Note [...] to illness or ingestion. ? heat exposure. [employer] Work Phone: History of Present illness Narrative [...] to illness or ingestion. ? heat exposure. [id number] [place] [address] Work Phone: Evaluation note 05-18-2021 Note Date & Type Note Facility 05-18-2021 Evaluation note Encounter Date Diagnosis Assessment Notes May, Acute urticaria (ICD-10 - L50.8) Take benadryl 50 mg at night for rash. Drink plenty of fluids. Do not perez or use any tanning lotion. Take medicine as prescribed. If symptoms return you may need to see an desk reporter. I considered/disc ussed prescription medicine with the patient. No evidence of anaphylaxis. Etiology of allergy unknown. If she develops sob, wheezing, N/V, or swelling in her lips, she is advised to go to the ER immediately. Advised pt to follow up with desk reporter if she develops returning symptoms. Will tx today with kenalog injections and medrol dose pack. Also advised to take benadryl as directed until rash clears. Pt understands and agrees with the plan. [employer] Other Evaluation note Note Date & Type Note Facility Evaluation note No assessment information [facility] Work Phone: History of Present illness Narrative Note Date & Type Note Facility History of Present illness Narrative Physical -[facility] 125 Work Phone: Chief Complaint [facility].New patient here to discuss rash, PCP is [...] and content) DATE CREATED AUTHOR 07/31/2021 [facility] DATE CREATED AUTHOR AUTHOR'S ORGANIZ ATION 07/31/2021 [employer] DATE CREATED AUTHOR AUTHOR'S ORGANIZ ATION 08/24/2022 [facility] DATE CREATED AUTHOR AUTHOR'S ORGANIZ ATION 07/31/[address] [facility] DATE CREATED AUTHOR AUTHOR'S ORGANIZ ATION 10/30/2023 [facility] DATE CREATED AUTHOR AUTHOR'S ORGANIZ ATION 11/12/2023 [facility] EPIC REASON FOR VISIT (unrecogniz ed section and content) rash on arms, back, legs Care Teams (unrecognized sec tion and content) Team Status: Active Member Role Status Dates [facility] Primary Care Provider Active Team Status: Inactive Member Role Status Dates [facility] Attending [facility] Active Start: July 16, 2023 End: July 16, 2023 Sen [facility] Primary Care Provider Active Start: July 16, 2023 End: July 16, 2023 Team Status: Inactive Member Role Status Dates [facility] Primary Care Provider Active Start: October 15, 2023 End: October 15, 2023 [facility] Attending Provider Active Start: October [...] BE BASED ON THE PRIMARY CLINICAL RECORDS. [facility] [employer] [facility]. provides no warranty or guarantee of the accuracy or completeness of information in this document.
== END 2023-12-31 10:44 | disposition home or self-care (01) ==
PROVIDERS: Visit Provider Obstetrics & Gynecology
DX: O36.60X0 Maternal care for excessive fetal growth, unspecified trimester, not applicable or unspecified (principal); Z3A.31 31 weeks gestation of pregnancy
CPT/HCPCS: 76816

== ENCOUNTER 2024-02-02 12:50 | Outpatient (OUT) | payer OTHER, SELFPAY ==
--- NOTE | 2024-02-02 13:03 | US_ITS ---
The [address] [address] Patient Name: ARPIT HINKLE MRN: [facility]:[id number] date: 1995 Sex: F [place]igned [place] [facility] [place] [facility] [place] Accession/Order Number: [id number] Exam Date: 02/02/2024 13:49 Report Date: 02/02/2024 14:42 At the request of: JEFFRY LUCIA Procedure: US OB BPP w non-stress Ultrasound biophysical profile CLINICAL: Evaluate well-being. TECHNIQUE: Dedicated ultrasound imaging of the fetus was performed to include the vice president of product marketing's evaluation of biophysical profile. FINDINGS: Comparison: Comparison to 12/31/2023. FETUS: There is a single living intrauterine fetus in breech presentation. heart rate of 149 beats per minute. AMNIOTIC FLUID: The amniotic fluid index is 11.33 cm, with maximum vertical pocket of 5.29 cm. BIOPHYSICAL PROFILE: motion: 2 out of 2. tone: 2 out of 2. breathin out of 2. Amniotic fluid volume: 2 out of 2. Total score: 8 out of 8. OTHER FINDINGS: None. US/US OB BPP w non-stress IMPRESSION: 1. Single viable fetus in breech presentation with heart rate of 149 beats per minute. 2. Total biophysical profile score of 8 out of 8. 3. Amniotic fluid index of 11.33 cm, with maximum vertical pocket of 5.29 cm. Electronically authenticated by: GERMANIA HERNÁNDEZ Date: 02/02/2024 14:42
[2024-02-02 13:08] VITALS: BP 119/76; PULSE 85
--- OUTSIDE RECORDS SUMMARY | 2024-02-02 13:21 | XMS_ITS | CCD ---
Author Organization [facility] Care Team Providers Care Real Estate Clerk Name Role Phone Ana María Smith Unavailable [phone] Unavailable Unavailable Tomas Claire Unavailable LEELA LUCIAY Admitting Unavailable KHARI, JEFFRY Attending Unavailable KHARI, JEFFRY Consulting Unavailable BIJAN BLACKWELL Admitting Unavailable BIJAN BLACKWELL Attending Unavailable BIJAN BLACKWELL Consulting Unavailable Nico ([facility]), THOR Landry Attending Provider [phone] [facility] Primary Care Provider [place] ([facility]), Roz Landry Attending Unavailabl e Rice ([facility]), Roz Landry Admitting Unavailabl e [facility] Primary Care Unavailable [facility] Primary Care Provider [phone] Nico ([facility]), THOR Landry Attending Provider [facility] Primary Care Unavailable Rice ([facility]), Roz Landry Attending Unavailabl e Rice ([facility]), Roz Landry Admitting Unavailabl e KHARI, JEFFRY Attending Unavailable KHARI, JEFFRY Attending Unavailable KHARI, JEFFRY Attending Unavailable BIJAN ENRIQUEZ Attending Unavailable KHARI, JEFFRY Attending Unavailable Medications Current Medications Medication Drug [...] February 27, 2020 12:00am polyethylene glycol 3350 19569 mg powder for oral solution (1 source) [...] Fetuson US OB >= 14 weeks Fetus [place] [address] Ultrasound Report Signed Patient: Arpit Hinkle MR#: [id number] : 1995 Acct:[id number] Age/Sex: 27 / F ADM Date: 10/15/23 Loc: Room: Type: [facility] Attending Dr: Roz Walsh ([facility]) PROTOT[employer]ILD Ordering Provider: Roz Walsh APRN, [facility] Date of Service: 10/15/23 US/US OB >= [...] Hubert Rowan M.D.10/15/2023 2:41 PM Dictation Location: [facility] Tech: Yanet Xavier Transcribed By: [facility] 10/15/23 1441 Dictated By: Hubert Rowan DO 10/15/23 1436 Signed By: 10/15/23 1441 Normal [facility] US OB <= 14 weeks fetuson OB <= 14 weeks fetus [place] [address] Ultrasound Report Signed Patient: Arpit Hinkle MR#: [id number] : 1995 Acct:[id number] Age/Sex: 27 / F ADM Date: 07/16/23 Loc: Room: Type: [facility] Attending Dr: Roz Walsh ([facility]) THOR Ordering Provider: Roz Walsh APRN, [...] Mann Jr., D.O.07/16/2023 2:23 PM Dictation Location[facility] Gale Richard Transcribed By: MARCELINA 07/16/23 1423 Dictated By: Oh Mann Jr, DO 07/16/23 1420 Signed By: 07/16/23 1423 [facility] US OB <= 14 weeks fetus [place] [address] Ultrasound Report Signed Patient: Arpit Hinkle MR#: [id number] : 1995 Acct:[id number] Age/Sex: 27 / F ADM Date: 07/16/23 Loc: Room: Type: [facility] Attending Dr: Roz Walsh ([facility]) THOR Ordering Provider: Roz Walsh APRN, [...] Mann Jr., D.O.07/16/2023 2:23 PM Dictation Location: [place] [address] Tech: Gale Richard Transcribed By: MARCELINA 07/16/23 142 Dictated By: Oh Mann Jr, DO 07/16/23 142 Signed By: 07/16/23 142 Normal [facility] CHLAMYDIA/GONOCOCCUS HIRAM (SW AB/URINE/PAPon 08-21-2022 Chlamydia trachomatis, HIRAM Negative Normal Negative [facility] Comment on above: Performed By: #### C T/NGNA #### [facility] [address] [place] [address] Dr. Derrick Luna Neisseria gonorrhoeae, HIRAM Negative Normal Negative [facility] Comment on above: Performed By: #### C T/NGNA #### [facility] [address] [place] [address] Dr. Derrick Luna VAGINITIS/VAGINOSIS DNA PROB Devonte 08-20-2022 Alyssa species Negative Normal Negative [facility] Comment on above: Performed By: #### V AGINT #### [facility] [address] [place] [address] Dr. Derrick Luna Gardnerella vaginalis Positive Abnormal Negative [facility] Comment on above: Performed By: #### V AGINT #### [facility] [address] [place] [address] Dr. Derrick Luna Trichomonas vaginalis Negative Normal Negative [facility] Comment on above: Performed By: #### V AGINT #### [facility] [address] [place] [address] Dr. Derrick Luna PAP ACOG PANEL 2: 21 to 29on 08-30-2021 . . Normal [facility] Comment on above: Performed By: #### 4 [id number] #### [facility] [address] [place] [address] Dr. Derrick Luna Age Gdln ACOG Testing - Normal [facility] Comment on above: Performed By: #### 4 [id number] #### [facility] [address] [place] [address] Dr. Derrick Luna DIAGNOSIS: Comment Normal [facility] Comment on above: Result Comment: NEGA TIVE FOR INTRAEPITHELIAL LESION OR MALIGNANCY. THIS SPECIMEN WAS RESCREENED PART OF OUR V BELT SKIVER PROGRAM. Performed By: #### 4 [id number] #### [facility] [address] [place] [address] Dr. Derrick Luna Methodology: Comment Normal [facility] Comment on above: Result Comment: This liquid based ThinPrep(R) pap test was screened with the use of an image guided system. Performed By: #### 4 [id number] #### [facility] [address] [place] [address] [address] Derrick Luna Note: Comment Normal [facility] Comment on above: Result Comment: The Pap smear is a screening test designed to aid in the detection of premalignant and malignant conditions of the uterine cervix. It is not a diagnostic procedure and should not be used as the sole means of detecting cervical cancer. Both false-positive and false-negative reports do occur. . Performed By: #### 4 [id number] #### [facility] [address] [place] [address] Dr. Derrick Luan Performed by: Comment Normal [facility] Comment on above: Result Comment: Ifrah Villa, Shower Room Attendant (ASCP) Performed By: #### 4 [id number] #### [facility] [address] [place] [address] Dr. Derrick Luna QC reviewed by: Comment Normal [facility] Comment on above: Result Comment: Jorge Mcclain Shower Room Attendant (ASCP) Performed By: #### 4 [id number] #### [facility] [address] [place] [address] Dr. Derrick Luna Reflex Criteria: Comment Normal [facility] Comment on above: Result Comment: The HPV DNA reflex criteria were not met with this specimen result therefore, no HPV testing was performed. . Performed By: #### 4 [id number] #### [facility] [address] [place] [address] Dr. Derrick Luna Specimen adequacy: Comment Normal [facility] Comment on above: Result Comment: Sati sfactory for evaluation. Endocervical and/or squamous metaplastic cells (endocervical component) are present. Performed By: #### 4 [id number] #### [facility] [address] [place], [place] [address] Dr. Derrick Luna Office Visit (Allergy/Immuno logy)on [...] DAILY. Vitals Vital Signs Recorded: 30Jul2021 03:31PM Kfqedaggjdu44.1 F, Temporal Heart Rate71 Skdujnahchh66 Ipzclozu477 Rielwhdsy85 Height5 ft 1 in Vzplbs209 lb BMI Cftjcksmpd57.1 kg/m2 BSA Calculated1.69 Tobacco Useb) No O2 Dsrqfcemfo11, RA Physical Exam Constitutional General appearance: Well developed, well nourished, no acute distress. Head and Face Palpation of the face and sinuses: No sinus tenderness, normal cephalic, atraumatic. Eyes Inspection of the conjunctiva and lids: Normal, no injection, no shiners. Ears, Nose, Mouth, and Throat Inspection of the nasal mucosa, septum, and turbinates: Normal without edema or erythema. (more content not included)... Normal [facility] Tobacco Screening.on 022 Tobacco use status CPHS b) No SR-ITVX-DVPV [place] [id number] Work Phone: COMPREHENSIVE PANELon 2021 Albumin [Mass/Vol] 4.7 g/dL Normal 3.4 - 5.0 [facility] Comment on above: Performed By: #### C MP #### [address] [id number] ALP [Catalytic activity/Vol] 60 U/L Normal 33 - 110 [facility] Comment on above: Performed By: #### C MP #### [address] [id number] ALT [Catalytic activity/Vol] 29 U/L Normal 7 - 45 [facility] Comment on above: Result Comment: Rolanda ents treated with Sulfasalazine may generate falsely decreased results for ALT. Performed By: #### C MP #### [address] [id number] Anion gap [Moles/Vol] 12 mmol/L Normal 10 - 20 [facility] Comment on above: Performed By: #### C MP #### [address] [id number] AST [Catalytic activity/Vol] 30 U/L Normal 9 - 39 [facility] Comment on above: Performed By: #### C MP #### [address] [id number] Bilirubin [Mass/Vol] 0.6 mg/dL Normal 0.0 - 1.2 [facility] Comment on above: Performed By: #### C MP #### [address] [id number] Calcium [Mass/Vol] 10.0 mg/dL Normal 8.6 - 10.3 [facility] Comment on above: Performed By: #### C MP #### [address] [id number] Chloride [Moles/Vol] 100 mmol/L Normal 98 - 107 [facility] Comment on above: Performed By: #### C MP #### [address] [id number] Creatinine [Mass/Vol] 0.79 mg/dL Normal 0.50 - 1.05 [facility] Comment on above: Performed By: #### C MP #### [address] [id number] eGFR FEMALE >90 Normal >90 [facility] Comment on above: Result Comment: CALC ULATIONS OF ESTIMATED GFR ARE PERFORMED USING THE 2020 CKD-EPI STUDY REFIT EQUATION WITHOUT THE RACE VARIABLE FOR THE IDMS-TRACEABLE CREATININE METHODS. https://jasn.asnjournals.org/content/early//ASN.49175051 88 Performed By: #### C MP #### [address] [id number] Glucose [Mass/Vol] 85 mg/dL Normal 74 - 99 [facility] Comment on above: Performed By: #### C MP #### [address] [id number] HCO3 (Bld) [Moles/Vol] 29 mmol/L Normal 21 - 32 [facility] Comment on above: Performed By: #### C MP #### [address] [id number] Potassium [Moles/Vol] 3.9 mmol/L Normal 3.5 - 5.3 [facility] Comment on above: Performed By: #### C MP #### [address] [id number] Protein [Mass/Vol] 8.2 g/dL Normal 6.4 - 8.2 [facility] Comment on above: Performed By: #### C MP #### [address] [id number] Sodium [Moles/Vol] 137 mmol/L Normal 136 - 145 [facility] Comment on above: Performed By: #### C MP #### [address] [id number] Urea nitrogen [Mass/Vol] 14 mg/dL Normal 6 - 23 [facility] Comment on above: Performed By: #### C MP #### [address] [id number] Laboratory - Chemistry and C hemistry - challengeon 07-18-2021 Albumin BCP dye [Mass/Vol] 4.7 g/dL 3.4 - 5.0 [facility] Work Phone: ALP [Catalytic activity/Vol] 60 U/L 33 - 110 [facility] Work Phone: ALT With P-5'-P [Catalytic activity/Vol] 29 U/L 7 - 45 [facility] Work Phone: Comment on above: Patients treated wit h Sulfasalazine may generate falsely decreased results for ALT. Anion gap [Moles/Vol] 12 mmol/L 10 - 20 [facility] Work Phone: AST With P-5'-P [Catalytic activity/Vol] 30 U/L 9 - 39 [facility] 125 Work Phone: Bilirubin [Mass/Vol] 0.6 mg/dL 0.0 - 1.2 [facility] Work Phone: Calcium [Mass/Vol] 10.0 mg/dL 8.6 - 10.3 [facility] 125 Work Phone: Chloride [Moles/Vol] 100 mmol/L 98 - 107 [facility] Work Phone: CO2 [Moles/Vol] 29 mmol/L 21 - 32 [facility] Work Phone: Creatinine [Mass/Vol] 0.79 mg/dL See Below [facility] Work Phone: Comment on above: Reference Range: 0.5 0 - 1.05 Glucose [Mass/Vol] 85 mg/dL 74 - 99 [facility] Work Phone: Potassium [Moles/Vol] 3.9 mmol/L 3.5 - 5.3 [facility] Work Phone: Protein [Mass/Vol] 8.2 g/dL 6.4 - 8.2 [facility] Work Phone: Sodium [Moles/Vol] 137 mmol/L 136 - 145 [facility] Work Phone: TSH Qn 0.73 m[IU]/L See Below [facility] Work Phone: Comment on above: Reference Range: 0.4 4 - 3.98 TSH testing is performed using different testing methodology at [facility] than at other [facility]. Direct result comparisons should only be made within the same method. Urea nitrogen [Mass/Vol] 14 mg/dL 6 - 23 [facility] Work Phone: No Panel Informationon 07-18 >90 >90 [facility] Work Phone: Comment on above: CALCULATIONS OF [facility] MATED GFR ARE PERFORMED USING THE 2020 CKD-EPI STUDY REFIT EQUATION WITHOUT THE RACE VARIABLE FOR THE IDMS-TRACEABLE CREATININE METHODS.https://jasn.asnjournals.org/content///ASN. 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 History of Present Illness Physical Review of Systems Constitutional: no chills, no fever and no night sweats. Eyes: no blurred vision and no eyesight problems . oph. 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 Over the last 2 weeks have you felt down, depressed or hopeless? (If yes, answer PHQ-9 below)No PHQ-2 #2. Over the last 2 weeks have you felt little interest or pleasure in doing things? (If yes, answer PHQ-9 below)No Eaxebyjj334 Unxmjxvjd52 Qndczaupcff41.6 F Height5 ft 3 in Bxpkcb131 lb BMI Tobmgnmidl95.63 kg/m2 BSA Calculated1.74 Normal [employer] TSH WITH REFLEX TO FREE T4 I F ABNORMALon 07-18-2021 TSH Qn 0.73 m[IU]/L Normal 0.44 - 3.98 [facility] Comment on above: Result Comment: TSH testing is performed using different testing methodology at [facility] than at other [facility]. Direct result comparisons should only be made within the same method. Performed By: #### T [facility] #### [address] [id number] Tobacco Screening.on 022 Adult depression screening assessment No [facility] Work Phone: Tobacco use status CPHS b) No -[facility] 125 Work Phone: UA MICROSCOPICon 07-18-2021 Mucus Ql (Urine sed) 2+ /LPF Normal [facility] Comment on above: Performed By: #### U AMIC #### [address] [id number] RBC 6 /HPF Abnormal 0-5 [facility] Comment on above: Performed By: #### U AMIC #### [address] [id number] SQUAMOUS EPITH. CELLS 3 /HPF Normal [facility] Comment on above: Performed By: #### U AMIC #### [address] [id number] WBC 1 /HPF Normal 0-5 [facility] Comment on above: Performed By: #### U AMIC #### [address] [id number] URINALYSISon 07-18-2021 Appearance (U) HAZY Normal CLEAR [facility] Comment on above: Performed By: #### U A #### [address] [id number] Bilirubin Ql (U) Negative Normal NEGATIVE [facility] Comment on above: Performed By: #### U A #### [address] [id number] Color (U) YELLOW Normal STRAW,YELLOW [facility] Comment on above: Performed By: #### U A #### [address] [id number] Glucose Ql (U) Negative Normal NEGATIVE [facility] Comment on above: Performed By: #### U A #### [address] [id number] Hemoglobin Ql (U) MODERATE(2+) Abnormal NEGATIVE [facility] Comment on above: Performed By: #### U A #### [address] [id number] Ketones Ql (U) Negative Normal NEGATIVE [facility] Comment on above: Performed By: #### U A #### [address] [id number] Leukocyte esterase Test strip Ql (U) SMALL (1+) Abnormal NEGATIVE [facility] Comment on above: Performed By: #### U A #### [address] [id number] Nitrite Ql (U) Negative Normal NEGATIVE [facility] Comment on above: Performed By: #### U A #### [address] [id number] pH (U) 5.0 [pH] Normal 5.0 - 8.0 [facility] Comment on above: Performed By: #### U A #### [address] [id number] Protein Ql (U) Negative Normal NEGATIVE [facility] Comment on above: Performed By: #### U A #### [address] [id number] Specific gravity (U) [Rel density] 1.020 Normal 1.005 - 1.035 [facility] Comment on above: Performed By: #### U A #### [address] [id number] Urobilinogen (U) [Mass/Vol] mg/dL Normal 0.0 - 1.9 [facility] Comment on above: Performed By: #### U A #### [address] [id number] Urinalysison 07-18-2021 Color (U) YELLOW See Below [place] [address] Work Phone: Comment on above: Reference Range: STR AW,YELLOW Glucose Ql (U) Negative NEGATIVE [facility] 125 Work Phone: Ketones Ql (U) Negative NEGATIVE [facility] 125 Work Phone: Leukocyte esterase Test strip Ql (U) SMALL (1+) Abnormal NEGATIVE -[facility] 125 Work Phone: pH (U) 5.0 [pH] 5.0 - 8.0 [facility] 125 Work Phone: Protein (U) [Mass/Vol] Negative NEGATIVE [facility] 125 Work Phone: RBC (U) [#/Vol] MODERATE(2+) Abnormal NEGATIVE [facility] 125 Work Phone: Specific gravity (U) [Rel density] 1.020 1 See Below [facility] 125 Work Phone: Comment on above: Reference Range: 1.0 05 - 1.035 Urinalysis Negative NEGATIVE [facility] 125 Work Phone: Urinalysis <2.0 0.0 - 1.9 [facility] 125 Work Phone: Urinalysis HAZY CLEAR [facility] 125 Work Phone: Urinalysis, Microscopicon Urinalysis, Microscopic 2+ [facility] 125 Work Phone: Urinalysis, Microscopic 3 {/HPF} -[facility] 125 Work Phone: Urinalysis, Microscopic 6 {/HPF} Abnormal 0-5 -[facility] Work Phone: Urinalysis, Microscopic 1 {/HPF} 0-5 -[facility] Work Phone: Vital Signs Date Time Vital Sign Value Performing Clinician Faci lity 07-30-2021 15:31-0500 Body height 154.94 cm [facility] Work Phone: IQ-EGHA-REDF [place] [address] Work Phone: 07-30-2021 15:31-0500 Body mass index (BMI) [Ratio] 29.1 kg/m2 [facility] Work Phone: RE-FFBE-EFEB [place] [address] Work Phone: 07-30-2021 15:31-0500 Body surface area Derived from formula 1.69 m2 [facility] Work Phone: QB-RXRM-QXAI [place] [address] Work Phone: 07-30-2021 15:31-0500 Body temperature 98.1 [degF] [facility] Work Phone: YO-LDOG-SUAK [place] [address] Work Phone: 07-30-2021 15:31-0500 Body weight 69.85 kg [facility] Work Phone: FW-DNTT-MAAQ [place] [address] Work Phone: 07-30-2021 15:31-0500 Diastolic blood pressure 68 mm[Hg] [facility] Work Phone: NE-DPCK-ADNV [place] [address] Work Phone: 07-30-2021 15:31-0500 Heart rate 71 /min [facility] Work Phone: KI-BMIV-RLKU [place] [address] Work Phone: 07-30-2021 15:31-0500 Respiratory rate 17 /min [facility] Work Phone: KE-SDWN-AAYP [place] [address] Work Phone: 07-30-2021 15:31-0500 SaO2% (BldA) [Mass fraction] 98 % [facility] Work Phone: SG-SZQH-HHXD [place] [address] Work Phone: 07-30-2021 15:31-0500 Systolic blood pressure 110 mm[Hg] [facility] Work Phone: TV-EAXM-CDCP [place] [address] Work Phone: 07-18-2021 14:44-0500 Diastolic blood pressure 70 mm[Hg] [facility] Work Phone: [facility] Work Phone: 07-18-2021 14:44-0500 Systolic blood pressure 116 mm[Hg] [facility] Work Phone: [facility] Work Phone: 07-18-2021 14:37-0500 Body height 160.[address] [facility] Work Phone: [facility] Work Phone: 07-18-2021 14:37-0500 Body mass index (BMI) [Ratio] 27.63 kg/m2 [facility] Work Phone: [facility] Work Phone: 07-18-2021 14:37-0500 Body surface area Derived from formula 1.[address] [facility] Work Phone: [facility] Work Phone: 07-18-2021 14:37-0500 Body temperature 98.6 [degF] Ana María [facility] Work Phone: [facility] Work Phone: 07-18-2021 14:37-0500 Body weight 70.76 kg Ana María [facility] Work Phone: [facility] Work Phone: 05-18-2021 15:40-0500 Body height 160.02 cm Tomas Claire Other [facility] Other 05-18-2021 15:40-0500 Body mass index (BMI) [Ratio] 25.68 kg/m2 Tomas Claire Other [facility] Other 05-18-2021 15:40-0500 Body temperature 98.4 [degF] Tomas Claire Other [facility] Other 05-18-2021 15:40-0500 Body weight 65.77 kg Tomas Claire Other [facility] Other 05-18-2021 15:40-0500 Respiratory rate 18 /min Tomas Claire Other [facility] Other 05-18-2021 15:40-0500 SaO2% (BldA) [Mass fraction] 97 % Tomas Claire Other [facility] Other Encounters Encounter Date Encounter Type Care Provider Facility Start: 01-18-2024 End: 01-18-2024 ambulatory JEFFRY KHARI Not Available Start: 12-31-2023 End: 12-31-2023 ambulatory BIJAN ENRIQUEZ Not Available Start: 12-14-2023 End: 12-14-2023 ambulatory JEFFRY KHARI Not Available Start: 11-11-2023 End: 11-11-2023 ambulatory JEFFRY KHARI Not Available Start: 10-29-2023 End: 10-29-2023 ambulatory JEFFRY KHARI Not Available Start: 10-15-2023 End: 10-15-2023 ambulatory [facility] Facility:[facility] Start: 10-15-2023 End: 10-15-2023 ambulatory [facility] Work Phone: [facility] Work Phone: Start: 10-15-2023 End: 10-15-2023 Patient encounter procedure [facility] Work Phone: [facility] [place] Work Phone: Start: 07-16-2023 End: 07-16-2023 ambulatory Roz Walsh ([facility]) Facility:[facility] Start: 07-16-2023 End: 07-16-2023 [facility] Work Phone: [facility] Work Phone: Start: 07-16-2023 End: 07-16-2023 Patient encounter procedure [facility] Work Phone: [facility] [place] Work Phone: Start: 08-18-2022 End: 08-18-2022 ambulatory BIJAN ENRIQUEZ . Facility:[facility] Start: 08-26-2021 End: 08-26-2021 ambulatory JEFFRY KHARI Facility:[facility] Start: 07-30-2021 Office consultation new/estab patient 60 min [facility] Work Phone: [facility] [address] Work Phone: Start: 07-19-2021 Chart Update Ana [facility] Work Phone: [facility] Work Phone: Start: 07-18-2021 Office outpatient ne [facility] [address] [facility] Work Phone: Start: 05-18-2021 End: 05-18-2021 ambulatory Tomas Claire Other [facility] [employer] Other Start: 05-18-2021 Office outpatient ne w 30 minutes Tomas Claire [facility] [address] Procedures Date Procedure Procedure Detail Performing Clinician Start: 10-15-2023 Diagnostic ultrasoun d of gravid uterus [place] [facility] Work Phone: Start: 07-16-2023 Diagnostic ultrasoun d of gravid uterus [place] [facility] Work Phone: Plan of Treatment Date Care Activity Detail Author Start: 07-30-2021 NPV, Provider: Lita Barriga, Status: Pen, Time: 3:10 PM NPV, Provider: Lita Barriga, Status: Pen, [facility]: 3:10 [facility] Work Phone: Immunizations Immunization Date Immunization Notes Care Provider Janee leonard 01-10-2021 Pfizer-BioNTech COVID-19 Vacc 30 MCG/0.3ML Intramuscular Suspension [facility] Work Phone: 01-20-2002 diphtheria, tetanus toxoids and acellular pertussis vaccine, unspecified formulation [facility] Work Phone: [facility] Work Phone: 01-20-2002 hepatitis B vaccine, pediatric or pediatric/adolescent dosage [facility] Work Phone: [facility] Work Phone: 01-20-2002 measles, mumps and rubella virus vaccine [facility] Work Phone: [facility] Work Phone: 01-20-2002 poliovirus vaccine, inactivated [facility] Work Phone: [facility] Work Phone: 08-05-1999 diphtheria, tetanus toxoids and acellular pertussis vaccine, unspecified formulation [facility] Work Phone: [place] [address] Work Phone: 08-05-1999 haemophilus influenz ae type b vaccine, conjugate unspecified formulation [facility] Work Phone: [place] [address] Work Phone: 08-05-1999 measles, mumps and rubella virus vaccine [facility] Work Phone: [place] [address] Work Phone: Payers Date Payer Category Payer Medicaid [id number] 2023 Self-pay 1996 Unknown [id number] 07.17. [id number] 1996 Unknown [id number] 1996 Unknown [id number] [id number] 1996 Unknown [id number] 1996 Unknown [id number] 1996 Unknown [id number] .16.84 [id number] 1996 Unknown [id number] 2.16.84 [id number] 1959 Unknown [id number] Unknown ANTHEM Unknown [id number] 2.16.8 [id number] Unknown HCAP/HFA/FAP Active [id number] Unknown [id number] 2.16.8 [id number] Social History Date Type Detail Facility Never smoked cigarettes Never smoked cigarettes [facility] [employer] Other Sex Assigned At Sex Assigned At Bir th [employer] Other Start: 1996 Sex Assigned At Female F [facility] Start: 02-27-2020 Tobacco smoking stat [facility] Never smoked tobacco (finding) [facility] History of Present illness Narrative [...] to illness or ingestion. ? heat exposure. [facility] Work Phone: History of Present illness [...] to illness or ingestion. ? heat exposure. [facility] [place] 201 Work Phone: Evaluation note 05-18-2021 Note Date & Type Note Facility 05-18-2021 Evaluation note Encounter Date Diagnosis Assessment Notes 18 Dec, 2021 Acute urticaria (ICD-10 - L50.8) Take benadryl 50 mg at night for rash. Drink plenty of fluids. Do not perez or use any tanning lotion. Take medicine as prescribed. If symptoms return you may need to see an historian research assistant. I considered/disc ussed prescription medicine with the patient. No evidence of anaphylaxis. Etiology of allergy unknown. If she develops sob, wheezing, N/V, or swelling in her lips, she is advised to go to the ER immediately. Advised pt to follow up with historian research assistant if she develops returning symptoms. Will tx today with kenalog injections and medrol dose pack. Also advised to take benadryl as directed until rash clears. Pt understands and agrees with the plan. [employer] Other Evaluation note Note Date & Type Note Facility Evaluation note No assessment information [facility] Work Phone: History of Present illness Narrative Note Date & Type Note Facility History of Present illness Narrative Physical -[facility] [place] [facility] Work Phone: Chief Complaint Patient presented today to [facility].New patient here to discuss rash, PCP [...] section and content) DATE CREATED AUTHOR 07/31/2021 [facility] DATE CREATED AUTHOR AUTHOR'S ORGANIZ ATION 07/31/2021 [employer] DATE CREATED AUTHOR AUTHOR'S ORGANIZ ATION 08/24/2022 [facility] DATE CREATED AUTHOR AUTHOR'S ORGANIZ ATION 07/31/2023 [facility] DATE CREATED AUTHOR AUTHOR'S ORGANIZ ATION 10/30/2023 [facility] DATE CREATED AUTHOR AUTHOR'S ORGANIZ ATION 01/18/2024 [facility] EPIC REASON FOR VISIT (unrecogniz ed section and content) rash on arms, back, legs Care Teams (unrecognized sec tion and content) Team Status: Active Member Role Status Dates [facility] Primary Care Provider Active Team Status: Inactive Member Role Status Dates Roz Walsh ([facility]) THOR Attending Provider Active Start: July 16, 2023 End: July 16, 2023 [facility] Primary Care Provider Active Start: July 16, 2023 End: July 16, 2023 Team Status: Inactive Member Role Status Dates [facility] Primary Care Provider Active Start: October 15, 2023 End: October 15, 2023 Roz Walsh ([facility]) THOR Attending Provider Active Start: October 15, 2023 [...] BE BASED ON THE PRIMARY CLINICAL RECORDS. [employer] provides no warranty or guarantee of the accuracy or completeness of information in this document.
== END 2024-02-02 14:20 | disposition home or self-care (01) ==
LOC: FBCO 13:08 → FBC 13:08
PROVIDERS: Visit Provider Obstetrics & Gynecology
DX: O36.8130 Decreased fetal movements, third trimester, not applicable or unspecified (principal); Z3A.36 36 weeks gestation of pregnancy
CPT/HCPCS: 76818; 87081; 87150

== ENCOUNTER 2024-02-02 18:34 | Outpatient (REF) | payer OTHER, SELFPAY ==
--- OUTSIDE RECORDS SUMMARY | 2024-02-02 18:39 | XMS_ITS | CCD ---
Author Organization [facility] Care Team Providers Care Sheriffs Officer Name Role Phone Ana María Smith Unavailable Unavailable Unavailable Tomas Claire Unavailable LEELA LUCIAY Admitting Unavailable KHARI, JEFFRY Attending Unavailable KHARI, JEFFRY Consulting Unavailable BIJAN BLACKWELL Admitting Unavailable BIJAN BLACKWELL Attending Unavailable BIJAN BLACKWELL Consulting Unavailable [place] ([facility]), THOR Landry Attending Provider [facility] Primary Care Provider [phone] [place] ([facility]), Roz Landry Attending Unavailabl e [place] ([facility]), Roz Landry Admitting Unavailabl e [facility] Primary Care Unavailable [facility] Primary Care Provider [phone] [place] ([facility]), THOR Landry Attending Provider [phone] [facility] Primary Care Unavailable [place] ([facility]), Roz Landry Attending Unavailabl e [place] ([facility]), Roz Landry Admitting Unavailabl e KHARI, [...] February 27, 2020 12:00am polyethylene glycol 3350 03222 mg powder for oral solution (1 source) [...] Fetuson US OB >= 14 weeks Fetus [facility] [place] [address] Ultrasound Report Signed Patient: Arpit Hinkle MR#: [id number] : 1995 Acct:[id number] Age/Sex: 27 / F ADM Date: 10/15/23 Loc: Room: Type: [facility] Attending Dr: 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 Walsh ([facility]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 Ordering Provider: Roz Walsh APRN, [facility] Date of Service: 10/15/23 US/US OB [...] Hubert Rowan M.D.10/15/2023 2:41 PM Dictation Location: Quietly Tech: Yanet Xavier Transcribed By: [facility] 10/15/23 1441 Dictated By: Hubert Rowan DO 10/15/23 1436 Signed By: 10/15/23 1441 Normal [facility] US OB <= 14 weeks fetuson OB <= 14 weeks fetus [facility] [place] [address] Ultrasound Report Signed Patient: Arpit Hinkle MR#: [id number] : 1995 Acct:[id number] Age/Sex: 27 / F ADM Date: 07/16/23 Loc: Room: Type: [facility] Attending Dr: Roz Walsh ([facility]) THOR Ordering Provider: Roz Walsh APRN, [...] Mann Jr., D.O.07/16/2023 2:23 PM Dictation Location: [facility] Tech: Gale Richard Transcribed By: MARCELINA 07/16/23 1423 Dictated By: Oh Mann Jr, DO 07/16/23 1420 Signed By: 07/16/23 1423 [facility] US OB <= 14 weeks fetus [facility] [place] [address] Ultrasound Report Signed Patient: Arpit Hinkle MR#: [id number] : 1995 Acct:[id number] Age/Sex: 27 / F ADM Date: 07/16/23 Loc: Room: Type: [facility] Attending Dr: Roz Walsh ([facility]) THOR Ordering Provider: Roz Walsh APRN, [...] Mann Jr., D.O.07/16/2023 2:23 PM Dictation Location: [place] [address] Tech: Gale Richard Transcribed By: MARCELINA 07/16/23 142 Dictated By: Oh Mann Jr, DO 07/16/23 142 Signed By: 07/16/23 142 Normal [facility] CHLAMYDIA/GONOCOCCUS HIRAM (SW AB/URINE/PAPon 08-21-2022 Chlamydia trachomatis, HIRAM Negative Normal Negative [facility] Comment on above: Performed By: #### C T/NGNA #### [facility] [address] [place] [address] Dr. Derrick Luna Neisseria gonorrhoeae, HIRAM Negative Normal Negative [facility] Comment on above: Performed By: #### C T/NGNA #### [facility] [address] [place] [address] Dr. Derrick Luna VAGINITIS/VAGINOSIS DNA PROB Devonte 08-20-2022 Alyssa species Negative Normal Negative [facility] Comment on above: Performed By: #### V AGINT #### [facility] [address] [place] [address] Dr. Derrick Luna Gardnerella vaginalis Positive Abnormal Negative [facility] Comment on above: Performed By: #### V AGINT #### [facility] [address] [place] [address] Dr. Derrick Luna Trichomonas vaginalis Negative Normal Negative [facility] Comment on above: Performed By: #### V AGINT #### [facility] [address] [place] [address] Dr. Derrick Luna PAP ACOG PANEL 2: 21 to 29on 08-30-2021 . . Normal [facility] Comment on above: Performed By: #### [id number] #### [facility] [address] [place] [address] Dr. Derrick Luna Age Gdln ACOG Testing - Normal [facility] Comment on above: Performed By: #### 4 [id number] #### [facility] [address] [place] [address] Dr. Derrick Luna DIAGNOSIS: Comment Normal [facility] Comment on above: Result Comment: NEGA TIVE FOR INTRAEPITHELIAL LESION OR MALIGNANCY. THIS SPECIMEN WAS RESCREENED PART OF OUR PEDIATRIC OCCUPATIONAL THERAPIST PROGRAM. Performed By: #### 4 [id number] #### [facility] [address] [place] [address] Dr. Derrick Luna Methodology: Comment Normal [facility] Comment on above: Result Comment: This liquid based ThinPrep(R) pap test was screened with the use of an image guided system. Performed By: #### 4 [id number] #### [facility] [address] [place] [address] [address] Derrick Luna Note: Comment Normal [facility] Comment on above: Result Comment: The Pap smear is a screening test designed to aid in the detection of premalignant and malignant conditions of the uterine cervix. It is not a diagnostic procedure and should not be used as the sole means of detecting cervical cancer. Both false-positive and false-negative reports do occur. . Performed By: #### 4 [id number] #### [facility] [address] [place] [address] Dr. Derrick Luna Performed by: Comment Normal [facility] Comment on above: Result Comment: Ifrah Villa, Asbestos Surveyor (ASCP) Performed By: #### 4 [id number] #### [facility] [address] [place] [address] Dr. Derrick Luna QC reviewed by: Comment Normal [facility] Comment on above: Result Comment: Jorge Mcclain Asbestos Surveyor (ASCP) Performed By: #### 4 [id number] #### [facility] [address] [place] [address] Dr. Derrick Luna Reflex Criteria: Comment Normal [facility] Comment on above: Result Comment: The HPV DNA reflex criteria were not met with this specimen result therefore, no HPV testing was performed. . Performed By: #### 4 [id number] #### [facility] [address] [place] [address] Dr. Derrick Luna Specimen adequacy: Comment Normal [facility] Comment on above: Result Comment: Sati sfactory for evaluation. Endocervical and/or squamous metaplastic cells (endocervical component) are present. Performed By: #### 4 [id number] #### [facility] [address] [place], [place] [address] Dr. Derrick Luna Office Visit (Allergy/Immuno logy)on [...] DAILY. Vitals Vital Signs Recorded: 30Jul2021 03:31PM Hsjeeipytjh32.1 F, Temporal Heart Rate71 Tdoiupqlhio74 Cqrmozxd954 Ovubhdhco48 Height5 ft 1 in Irflmy088 lb BMI Vkojwazxkq54.1 kg/m2 BSA Calculated1.69 Tobacco Useb) No O2 Rvssdaagxz44, RA Physical Exam Constitutional General appearance: Well developed, well nourished, no acute distress. Head and Face Palpation of the face and sinuses: No sinus tenderness, normal cephalic, atraumatic. Eyes Inspection of the conjunctiva and lids: Normal, no injection, no shiners. Ears, Nose, Mouth, and Throat Inspection of the nasal mucosa, septum, and turbinates: Normal without edema or erythema. (more content not included)... Normal [employer] Tobacco Screening.on 022 Tobacco use status CPHS b) No EK-BMBL-[id number] [place] [id number] Work Phone: COMPREHENSIVE PANELon 2021 Albumin [Mass/Vol] 4.7 g/dL Normal 3.4 - 5.0 [facility] Comment on above: Performed By: #### C MP #### [address] [id number] ALP [Catalytic activity/Vol] 60 U/L Normal 33 - 110 [facility] Comment on above: Performed By: #### C MP #### [address] [id number] ALT [Catalytic activity/Vol] 29 U/L Normal 7 - 45 [facility] Comment on above: Result Comment: Rolanda ents treated with Sulfasalazine may generate falsely decreased results for ALT. Performed By: #### C MP #### [address] [id number] Anion gap [Moles/Vol] 12 mmol/L Normal 10 - 20 [facility] Comment on above: Performed By: #### C MP #### [address] [id number] AST [Catalytic activity/Vol] 30 U/L Normal 9 - 39 [facility] Comment on above: Performed By: #### C MP #### [address] [id number] Bilirubin [Mass/Vol] 0.6 mg/dL Normal 0.0 - 1.2 [facility] Comment on above: Performed By: #### C MP #### [address] [id number] Calcium [Mass/Vol] 10.0 mg/dL Normal 8.6 - 10.3 [facility] Comment on above: Performed By: #### C MP #### [address] [id number] Chloride [Moles/Vol] 100 mmol/L Normal 98 - 107 [facility] Comment on above: Performed By: #### C MP #### [address] [id number] Creatinine [Mass/Vol] 0.79 mg/dL Normal 0.50 - 1.05 [facility] Comment on above: Performed By: #### C MP #### [address] [id number] eGFR FEMALE >90 Normal >90 [facility] Comment on above: Result Comment: CALC ULATIONS OF ESTIMATED GFR ARE PERFORMED USING THE 2020 CKD-EPI STUDY REFIT EQUATION WITHOUT THE RACE VARIABLE FOR THE IDMS-TRACEABLE CREATININE METHODS. https://jasn.asnjournals.org/content/early//ASN.09284540 88 Performed By: #### C MP #### [address] [id number] Glucose [Mass/Vol] 85 mg/dL Normal 74 - 99 [facility] Comment on above: Performed By: #### C MP #### [address] [id number] HCO3 (Bld) [Moles/Vol] 29 mmol/L Normal 21 - 32 [facility] Comment on above: Performed By: #### C MP #### [address] [id number] Potassium [Moles/Vol] 3.9 mmol/L Normal 3.5 - 5.3 [facility] Comment on above: Performed By: #### C MP #### [address] [id number] Protein [Mass/Vol] 8.2 g/dL Normal 6.4 - 8.2 [facility] Comment on above: Performed By: #### C MP #### [address] [id number] Sodium [Moles/Vol] 137 mmol/L Normal 136 - 145 [facility] Comment on above: Performed By: #### C MP #### [address] [id number] Urea nitrogen [Mass/Vol] 14 mg/dL Normal 6 - 23 [facility] Comment on above: Performed By: #### C MP #### [address] [id number] Laboratory - Chemistry and C hemistry - challengeon 07-18-2021 Albumin BCP dye [Mass/Vol] 4.7 g/dL 3.4 - 5.0 [facility] 125 Work Phone: ALP [Catalytic activity/Vol] 60 U/L 33 - 110 [facility] 125 Work Phone: ALT With P-5'-P [Catalytic activity/Vol] 29 U/L 7 - 45 [facility] 125 Work Phone: Comment on above: Patients treated wit h Sulfasalazine may generate falsely decreased results for ALT. Anion gap [Moles/Vol] 12 mmol/L 10 - 20 [facility] 125 Work Phone: AST With P-5'-P [Catalytic activity/Vol] 30 U/L 9 - 39 [facility] 125 Work Phone: Bilirubin [Mass/Vol] 0.6 mg/dL 0.0 - 1.2 [facility] Work Phone: Calcium [Mass/Vol] 10.0 mg/dL 8.6 - 10.3 [facility] 125 Work Phone: Chloride [Moles/Vol] 100 mmol/L 98 - 107 [facility] Work Phone: CO2 [Moles/Vol] 29 mmol/L 21 - 32 [facility] 125 Work Phone: Creatinine [Mass/Vol] 0.79 mg/dL See Below [facility] 125 Work Phone: Comment on above: Reference Range: 0.5 0 - 1.05 Glucose [Mass/Vol] 85 mg/dL 74 - 99 [facility] Work Phone: Potassium [Moles/Vol] 3.9 mmol/L 3.5 - 5.3 [facility] 125 Work Phone: Protein [Mass/Vol] 8.2 g/dL 6.4 - 8.2 [facility] Work Phone: Sodium [Moles/Vol] 137 mmol/L 136 - 145 [facility] Work Phone: TSH Qn 0.73 m[IU]/L See Below [facility] Work Phone: Comment on above: Reference Range: 0.4 4 - 3.98 TSH testing is performed using different testing methodology at [facility] than at other [facility]. Direct result comparisons should only be made within the same method. Urea nitrogen [Mass/Vol] 14 mg/dL 6 - 23 [facility] 125 Work Phone: No Panel Informationon 07-18 >90 >90 [facility] 125 Work Phone: Comment on above: CALCULATIONS OF [facility] MATED GFR ARE PERFORMED USING THE 2020 CKD-EPI STUDY REFIT EQUATION WITHOUT THE RACE VARIABLE FOR THE IDMS-TRACEABLE CREATININE METHODS.https://jasn.asnjournals.org/content///ASN. 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 History of Present Illness Physical Review of Systems Constitutional: no chills, no fever and no night sweats. Eyes: no blurred vision and no eyesight problems . oph. Genitourinary:. 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 Over the last 2 weeks have you felt down, depressed or hopeless? (If yes, answer PHQ-9 below)No PHQ-2 #2. Over the last 2 weeks have you felt little interest or pleasure in doing things? (If yes, answer PHQ-9 below)No Kwuwpvrv420 Ygzxjtydw01 Mjotyejfexu10.6 F Height5 ft 3 in Voambf804 lb BMI Ounmdstbsz86.63 kg/m2 BSA Calculated1.74 Normal [employer] TSH WITH REFLEX TO FREE T4 I F ABNORMALon 07-18-2021 TSH Qn 0.73 m[IU]/L Normal 0.44 - 3.98 [facility] Comment on above: Result Comment: TSH testing is performed using different testing methodology at [facility] than at other [facility]. Direct result comparisons should only be made within the same method. Performed By: #### T [facility] #### [address] [phone] Tobacco Screening.on 022 Adult depression screening assessment No [facility] 125 Work Phone: Tobacco use status CPHS b) No -[facility] 125 Work Phone: UA MICROSCOPICon 07-18-2021 Mucus Ql (Urine sed) 2+ /LPF Normal [facility] Comment on above: Performed By: #### U AMIC #### [address] [id number] RBC 6 /HPF Abnormal 0-5 [facility] Comment on above: Performed By: #### U AMIC #### [address] [id number] SQUAMOUS EPITH. CELLS 3 /HPF Normal [facility] Comment on above: Performed By: #### U AMIC #### [address] [id number] WBC 1 /HPF Normal 0-5 [facility] Comment on above: Performed By: #### U AMIC #### [address] [id number] URINALYSISon 07-18-2021 Appearance (U) HAZY Normal CLEAR [facility] Comment on above: Performed By: #### U A #### [address] [id number] Bilirubin Ql (U) Negative Normal NEGATIVE [facility] Comment on above: Performed By: #### U A #### [address] [id number] Color (U) YELLOW Normal STRAW,YELLOW [facility] Comment on above: Performed By: #### U A #### [address] [id number] Glucose Ql (U) Negative Normal NEGATIVE [facility] Comment on above: Performed By: #### U A #### [address] [id number] Hemoglobin Ql (U) MODERATE(2+) Abnormal NEGATIVE [facility] Comment on above: Performed By: #### U A #### [address] [id number] Ketones Ql (U) Negative Normal NEGATIVE [facility] Comment on above: Performed By: #### U A #### [address] [id number] Leukocyte esterase Test strip Ql (U) SMALL (1+) Abnormal NEGATIVE [facility] Comment on above: Performed By: #### U A #### [address] [id number] Nitrite Ql (U) Negative Normal NEGATIVE [facility] Comment on above: Performed By: #### U A #### [address] [id number] pH (U) 5.0 [pH] Normal 5.0 - 8.0 [facility] Comment on above: Performed By: #### U A #### [address] [id number] Protein Ql (U) Negative Normal NEGATIVE [facility] Comment on above: Performed By: #### U A #### [address] [id number] Specific gravity (U) [Rel density] 1.020 Normal 1.005 - 1.035 [facility] Comment on above: Performed By: #### U A #### [address] [id number] Urobilinogen (U) [Mass/Vol] mg/dL Normal 0.0 - 1.9 [facility] Comment on above: Performed By: #### U A #### [address] [id number] Urinalysison 07-18-2021 Color (U) YELLOW See Below [place] [address] Work Phone: Comment on above: Reference Range: STR AW,YELLOW Glucose Ql (U) Negative NEGATIVE [facility] 125 Work Phone: Ketones Ql (U) Negative NEGATIVE [facility] 125 Work Phone: Leukocyte esterase Test strip Ql (U) SMALL (1+) Abnormal NEGATIVE -[facility] 125 Work Phone: pH (U) 5.0 [pH] 5.0 - 8.0 [facility] 125 Work Phone: Protein (U) [Mass/Vol] Negative NEGATIVE [facility] 125 Work Phone: RBC (U) [#/Vol] MODERATE(2+) Abnormal NEGATIVE [facility] 125 Work Phone: Specific gravity (U) [Rel density] 1.020 1 See Below [facility] 125 Work Phone: Comment on above: Reference Range: 1.0 05 - 1.035 Urinalysis Negative NEGATIVE [facility] 125 Work Phone: Urinalysis <2.0 0.0 - 1.9 [facility] 125 Work Phone: Urinalysis HAZY CLEAR [facility] 125 Work Phone: Urinalysis, Microscopicon Urinalysis, Microscopic 2+ [facility] 125 Work Phone: Urinalysis, Microscopic 3 {/HPF} -[facility] 125 Work Phone: Urinalysis, Microscopic 6 {/HPF} Abnormal 0-5 -[facility] 125 Work Phone: Urinalysis, Microscopic 1 {/HPF} 0-5 -[facility] 125 Work Phone: Vital Signs Date Time Vital Sign Value Performing Clinician Faci lity 07-30-2021 15:31-0500 Body height 154.94 cm [facility] Work Phone: [id number] [employer] [facility] Work Phone: 07-30-2021 15:31-0500 Body mass index (BMI) [Ratio] 29.1 kg/m2 [facility] Work Phone: CG-RTEL-APKX [employer] [address] Work Phone: 07-30-2021 15:31-0500 Body surface area Derived from formula 1.69 m2 [facility] Work Phone: DJ-EQIX-HPFO [employer] [address] Work Phone: 07-30-2021 15:31-0500 Body temperature 98.1 [degF] [facility] Work Phone: OK-TPHZ-YQPB [employer] [address] Work Phone: 07-30-2021 15:31-0500 Body weight 69.85 kg [facility] Work Phone: ZM-PTGA-VFFP [employer] [address] Work Phone: 07-30-2021 15:31-0500 Diastolic blood pressure 68 mm[Hg] [facility] Work Phone: FK-OBJO-VIHD [employer] [address] Work Phone: 07-30-2021 15:31-0500 Heart rate 71 /min [facility] Work Phone: FJ-IIMA-KIVO [employer] [address] Work Phone: 07-30-2021 15:31-0500 Respiratory rate 17 /min [facility] Work Phone: [id number] [employer] [address] Work Phone: 07-30-2021 15:31-0500 SaO2% (BldA) [Mass fraction] 98 % [facility] Work Phone: PT-DJXJ-RHRX [employer] [address] Work Phone: 07-30-2021 15:31-0500 Systolic blood pressure 110 mm[Hg] [facility] Work Phone: FW-VXGX-CJJM [employer] [address] Work Phone: 07-18-2021 14:44-0500 Diastolic blood pressure 70 mm[Hg] [facility] Work Phone: [facility] Work Phone: 07-18-2021 14:44-0500 Systolic blood pressure 116 mm[Hg] [facility] Work Phone: [facility] Work Phone: 07-18-2021 14:37-0500 Body height 160.02 cm [facility] Work Phone: [facility] Work Phone: 07-18-2021 14:37-0500 Body mass index (BMI) [Ratio] 27.63 kg/m2 [facility] Work Phone: [facility] Work Phone: 07-18-2021 14:37-0500 Body surface area Derived from formula 1.74 m2 [facility] Work Phone: [facility] Work Phone: 07-18-2021 14:37-0500 Body temperature 98.6 [degF] Ana María [facility] Work Phone: [facility] 125 Work Phone: 07-18-2021 14:37-0500 Body weight 70.76 kg Ana María [facility] Work Phone: [facility] 125 Work Phone: 05-18-2021 15:40-0500 Body height 160.02 cm Tomas Claire Other [employer] Other 05-18-2021 15:40-0500 Body mass index (BMI) [Ratio] 25.68 kg/m2 Tomas Claire Other [employer] Other 05-18-2021 15:40-0500 Body temperature 98.4 [degF] Tomas Claire Other [employer] Other 05-18-2021 15:40-0500 Body weight 65.77 kg Tomas Claire Other [employer] Other 05-18-2021 15:40-0500 Respiratory rate 18 /min Tomas Claire Other [employer] Other 05-18-2021 15:40-0500 SaO2% (BldA) [Mass fraction] 97 % Tomas Claire Other [employer] Other Encounters Encounter Date Encounter Type Care Provider Facility Start: 01-18-2024 End: 01-18-2024 ambulatory JEFFRY KHARI Not Available Start: 12-31-2023 End: 12-31-2023 ambulatory BIJAN ENRIQUEZ Not Available Start: 12-14-2023 End: 12-14-2023 ambulatory JEFFRY KHARI Not Available Start: 11-11-2023 End: 11-11-2023 ambulatory JEFFRY KHARI Not Available Start: 10-29-2023 End: 10-29-2023 ambulatory JEFFRY KHARI Not Available Start: 10-15-2023 End: 10-15-2023 ambulatory [facility] Facility:[facility] Start: 10-15-2023 End: 10-15-2023 ambulatory [facility] Work Phone: [facility] Work Phone: Start: 10-15-2023 End: 10-15-2023 Patient encounter procedure [facility] Work Phone: [facility] [place] Work Phone: Start: 07-16-2023 End: 07-16-2023 ambulatory Roz Walsh ([facility]) Facility:[facility] Start: 07-16-2023 End: 07-16-2023 ambulatory [facility] Work Phone: [facility] Work Phone: Start: 07-16-2023 End: 07-16-2023 Patient encounter procedure [facility] Work Phone: [facility] [place] Work Phone: Start: 08-18-2022 End: 08-18-2022 ambulatory BIJAN ENRIQUEZ . Facility:[facility] Start: 08-26-2021 End: 08-26-2021 ambulatory JEFFRY KHARI Facility:[facility] Start: 07-30-2021 Office consultation new/estab patient 60 min [facility] Work Phone: Start: 07-19-2021 Chart Update [facility] Work [facility]: [facility] 125 Work Phone: Start: 07-18-2021 Office outpatient ne w 30 minutes [place] [facility] Work Phone: [facility] Work Phone: Start: 05-18-2021 End: 05-18-2021 ambulatory Tomas Claire Other [facility] [employer] Other Start: 05-18-2021 Office outpatient ne w 30 minutes Tomas Claire [facility] [address] Procedures Date Procedure Procedure Detail Performing Clinician Start: 10-15-2023 Diagnostic ultrasoun d of gravid uterus [place] [facility] Work Phone: Start: 07-16-2023 Diagnostic ultrasoun d of gravid uterus [place] [facility] Work Phone: Plan of Treatment Date Care Activity Detail Author Start: 07-30-2021 NPV, Provider: Lita Barriga, Status: Pen, Time: 3:10 PM NPV, Provider: Lita Barriga, Status: Pen, Time: 3:10 PM [facility] Work Phone: Immunizations Immunization Date Immunization Notes Care Provider Janee leonard 01-10-2021 Pfizer-BioNTech COVID-19 Vacc 30 MCG/0.3ML Intramuscular Suspension [facility] Work Phone: [facility] Work Phone: 01-20-2002 diphtheria, tetanus toxoids and acellular pertussis vaccine, unspecified formulation [facility] Work Phone: [facility] Work Phone: 01-20-2002 hepatitis B vaccine, pediatric or pediatric/adolescent dosage [facility] Work Phone: [facility] Work Phone: 01-20-2002 measles, mumps and rubella virus vaccine [facility] Work Phone: [facility] 125 Work Phone: 01-20-2002 poliovirus vaccine, inactivated [facility] Work Phone: [facility] 125 Work Phone: 08-05-1999 diphtheria, tetanus toxoids and acellular pertussis vaccine, unspecified formulation [facility] Work Phone: [place] [address] Work Phone: 08-05-1999 haemophilus influenz ae type b vaccine, conjugate unspecified formulation [facility] Work Phone: [place] [address] Work Phone: 08-05-1999 measles, mumps and rubella virus vaccine [facility] Work Phone: [place] [address] Work Phone: Payers Date Payer Category Payer Medicaid [id number] 2023 Self-pay 1996 Unknown [id number] 07.17. [id number] 1996 Unknown [id number] 1996 Unknown [id number] .16.84 [id number] 1996 Unknown [id number] 1996 Unknown [id number] 1996 Unknown [id number] .16.84 [id number] 1996 Unknown [id number] 2.16.84 [id number] 1959 Unknown [id number] Unknown ANTHEM Unknown [id number] 2.16.8 [id number] Unknown HCAP/HFA/FAP Active [id number] Unknown [id number] 2.16.8 [id number] Social History Date Type Detail Facility Never smoked cigarettes Never smoked cigarettes [facility] [employer] Other Sex Assigned At Sex Assigned At Bir th [employer] Other Start: 1996 Sex Assigned At Female [facility] Start: 02-27-2020 Tobacco smoking stat [facility] Never smoked tobacco (finding) [facility] History of Present illness Narrative 06-08-2021 Note [...] to illness or ingestion. ? heat exposure. [facility] Work Phone: History of Present [...] to illness or ingestion. ? heat exposure. [id number] Work Phone: Evaluation note 05-18-2021 Note Date & Type Note Facility 05-18-2021 Evaluation note Encounter Date Diagnosis Assessment Notes 18 Dec, 2021 Acute urticaria (ICD-10 - L50.8) Take benadryl 50 mg at night for rash. Drink plenty of fluids. Do not peerz or use any tanning lotion. Take medicine as prescribed. If symptoms return you may need to see an machine shop lead man. I considered/disc ussed prescription medicine with the patient. No evidence of anaphylaxis. Etiology of allergy unknown. If she develops sob, wheezing, N/V, or swelling in her lips, she is advised to go to the ER immediately. Advised pt to follow up with machine shop lead man if she develops returning symptoms. Will tx today with kenalog injections and medrol dose pack. Also advised to take benadryl as directed until rash clears. Pt understands and agrees with the plan. [employer] Other Evaluation note Note Date & Type Note Facility Evaluation note No assessment information [facility] Work Phone: History of Present illness Narrative Note Date & Type Note Facility History of Present illness Narrative Physical -[facility] Work Phone: Chief Complaint Patient presented today to [facility].New patient here to discuss rash, PCP [...] section and content) DATE CREATED AUTHOR 07/31/2021 [facility] DATE CREATED AUTHOR AUTHOR'S ORGANIZ ATION 07/31/2021 [employer] DATE CREATED AUTHOR AUTHOR'S ORGANIZ ATION 08/24/2022 [facility] DATE CREATED AUTHOR AUTHOR'S ORGANIZ ATION 07/31/2023 [facility] DATE CREATED AUTHOR AUTHOR'S ORGANIZ ATION 10/30/2023 [facility] DATE CREATED AUTHOR AUTHOR'S ORGANIZ ATION 01/18/2024 [facility] EPIC REASON FOR VISIT (unrecogniz ed section and content) rash on arms, back, legs Care Teams (unrecognized sec tion and content) Team Status: Active Member Role Status Dates [facility] Primary Care Provider Active Team Status: Inactive Member Role Status Dates Roz Walsh ([facility]) THOR Attending Provider Active Start: July 16, 2023 End: July 16, 2023 [facility] Primary Care Provider Active Start: July 16, 2023 End: July 16, 2023 Team Status: Inactive Member Role Status Dates [facility] Primary Care Provider Active Start: October 15, 2023 End: October 15, 2023 Roz Walsh ([facility]) THOR Attending Provider Active Start: October [...] BE BASED ON THE PRIMARY CLINICAL RECORDS. [employer] provides no warranty or guarantee of the accuracy or completeness of information in this document.
== END 2024-02-02 18:35 | disposition home or self-care (01) ==
LOC: LAB 18:34
PROVIDERS: Visit Provider Physician Assistant
DX: Z34.93 Encounter for supervision of normal pregnancy, unspecified, third trimester (principal); Z3A.36 36 weeks gestation of pregnancy
CPT/HCPCS: 36415; 87081; 87150

== ENCOUNTER 2024-02-23 05:46 | Inpatient (IN) | payer OTHER, SELFPAY ==
[2024-02-23] VITALS (41 sets, daily range): BP systolic 96–133; BP diastolic 57–84; PULSE 70–109; TEMP 36.2–36.7; O2SAT 88–100
--- OUTSIDE RECORDS SUMMARY | 2024-02-23 05:50 | XMS_ITS | CCD ---
Author Organization [facility] Care Team Providers Care Travel Clerk Name Role Phone Ana María Smith Unavailable Unavailable Unavailable Tomas Claire Unavailable KHARILEELA CASTILLOY Admitting Unavailable KHARI, JEFFRY Attending Unavailable KHARI, JEFFRY Consulting Unavailable BIJAN BLACKWELL Admitting Unavailable BIJAN BLACKWELL Attending Unavailable BIJAN BLACKWELL Consulting Unavailable Nico ([facility]), THOR Landry Attending Provider [facility] Primary Care Provider [place] ([facility]), Roz Landry Attending Unavailabl e Rice ([facility]), Roz Landry Admitting Unavailabl e [facility] Primary Care Unavailable [facility] Primary Care Provider [phone] [place] ([facility]), THOR Landry Attending Provider [facility] Primary Care Unavailable [place] ([facility]), Roz Landry Attending Unavailabl e [place] ([facility]), Roz Landry Admitting Unavailabl e KHARI, JEFFRY Attending Unavailable KHARI, JEFFRY Attending Unavailable KHARI, JEFFRY Attending Unavailable BIJAN ENRIQUEZ Attending Unavailable KHARI, JEFFRY Attending Unavailable KHARI, JEFFRY Attending Unavailable KHARI, JEFFRY Attending Unavailable KHARI, JEFFRY Attending Unavailable Medications Current Medications Medication Drug Class(es) Dates Sig (Normalized) Sig (Original) methylPREDNISolone 4 mg oral tablet (1 source) Corticosteroid Start: 05-18-2021 Medrol 4 MG as directed Orally as directed for 6 days 18 Dec, 2021 Active omeprazole 20 mg delayed release oral tablet (1 source) Proton Pump Inhibitor Start: 02-27-2020 take 1 tablet by mouth once daily Omeprazole Magnesium (Prilosec Otc) 20 mg Tablet,Delayed Release (Dr/Ec) Active 20 MG PO Daily February 27, 2020 12:00am polyethylene glycol 3350 79659 mg powder for oral solution (1 source) [...] Fetuson US OB >= 14 weeks Fetus [place] [address] Ultrasound Report Signed Patient: Arpit Hinkle MR#: [id number] : 1995 Acct:[id number] Age/Sex: 27 / F ADM Date: 10/15/23 Loc: Room: Type: [facility] Attending Dr: Roz Walsh ([facility]) THOR Ordering Provider: Roz Walsh APRN, [facility] Date of Service: 10/15/23 US/US OB >= 14 weeks Fetus: Z34.02 Copies to: [facility] Walsh APRN, [facility] for Fetus greater than 14 [...] Hubert Rowan M.D.10/15/2023 2:41 PM Dictation Location: [place] [address] Tech: Yanet Xavier Transcribed By: MARCELINA 10/15/23 1441 Dictated By: Hubert Rowan DO 10/15/23 1436 Signed By: 10/15/23 1441 Normal [facility] US OB <= 14 weeks fetuson OB <= 14 weeks fetus [facility] [place] [address] [place] [address] Ultrasound Report Signed Patient: Arpit Hinkle MR#: [id number] : 1995 Acct:[id number] Age/Sex: 27 / F ADM Date: 07/16/23 Loc: Room: Type: [facility] Ordering Provider: Roz Walsh APRN, WHCNP Date of Service: 07/16/23 US/US OB <= 14 weeks fetus: Z3A.01 Copies to: Roz Walsh APRN [facility] OB ultrasound. Reason for exam:Dating ultrasound Comparison:None. [...] Mann Jr., D.O.07/16/2023 2:23 PM Dictation Location: [place] [address] Tech: Gale Richard Transcribed By: MARCELINA 07/16/23 1423 Dictated By: Oh Mann Jr, DO 07/16/23 1420 Signed By: 07/16/23 1423 Normal [facility] US OB <= 14 weeks fetus [facility] [place] [address] [place] [address] Ultrasound Report Signed Patient: Arpit Hinkle MR#: [id number] : 1995 Acct:[id number] Age/Sex: 27 / F ADM Date: 07/16/23 Loc: Room: Type: [facility] Attending Dr: Roz Walsh ([facility]) THOR Ordering Provider: Roz Walsh APRN, WHCNP Date of Service: 07/16/23 US/US OB <= 14 weeks fetus: Z3A.01 Copies to: Roz Walsh APRN [facility] OB ultrasound. Reason for exam:Dating ultrasound Comparison:None. [...] Mann Jr., D.O.07/16/2023 2:23 PM Dictation Location: [place] [address] Tech: Gale Richard Transcribed By: PWS 07/16/231422 Dictated By: Oh Mann Jr DO 07/16/23 142 Signed By: 07/16/231422 Normal [facility] CHLAMYDIA/GONOCOCCUS HIRAM (SW AB/URINE/PAPon 08-21-2022 Chlamydia trachomatis, HIRAM Negative Normal Negative [facility] Comment on above: Performed By: #### C T/NGNA #### [facility] [address] [place] [address] Dr. Derrick Luna Neisseria gonorrhoeae, HIRAM Negative Normal Negative [facility] Comment on above: Performed By: #### C T/NGNA #### [facility] [address] [place] [address] Dr. Derrick Luna VAGINITIS/VAGINOSIS DNA PROB Devonte 08-20-2022 Alyssa species Negative Normal Negative [facility] Comment on above: Performed By: #### V AGINT #### [facility] [address] [place] [address] Dr. Derrick Luna Gardnerella vaginalis Positive Abnormal Negative [facility] Comment on above: Performed By: #### V AGINT #### [facility] [address] [place] [address] Dr. Derrick Luna Trichomonas vaginalis Negative Normal Negative [facility] Comment on above: Performed By: #### V AGINT #### [facility] [address] [place] [address] Dr. Derrick Luna PAP ACOG PANEL 2: 21 to 29on 08-30-2021 . . Normal [facility] Comment on above: Performed By: #### [id number] #### [facility] [address] [place] [address] Dr. Derrick Luna Age Gdln ACOG Testing 22- Normal [facility] Comment on above: Performed By: #### 4 [id number] #### [facility] [address] [place] [address] [address] Derrick Luna DIAGNOSIS: Comment [facility] Comment on above: Result Comment: NEGA TIVE FOR INTRAEPITHELIAL LESION OR MALIGNANCY. THIS SPECIMEN WAS RESCREENED PART OF OUR INSURANCE ADJUSTER PROGRAM. Performed By: #### 4 [id number] #### [facility] [address] [place] [address] [address] Derrick Luna Methodology: Comment Normal [facility] Comment on above: Result Comment: This liquid based ThinPrep(R) pap test was screened with the use of an image guided system. Performed By: #### 4 [id number] #### [facility] [address] [place] [address] [address] Derrick Luna Note: Comment [facility] Comment on above: Result Comment: The Pap smear is a screening test designed to aid in the detection of premalignant and malignant conditions of the uterine cervix. It is not a diagnostic procedure and should not be used as the sole means of detecting cervical cancer. Both false-positive and false-negative reports do occur. . Performed By: #### 4 [id number] #### [facility] [address] [place] [address] Dr. Derrick Luna Performed by: Comment Normal [facility] Comment on above: Result Comment: Ifrah Villa, Oil Seal Assembler (ASCP) Performed By: #### 4 [id number] #### [facility] [address] [place] [address] Dr. Derrick Luna QC reviewed by: Comment Normal [facility] Comment on above: Result Comment: Jorge Mcclain Oil Seal Assembler (ASCP) Performed By: #### 4 [id number] #### [facility] [address] [place] [address] Dr. Derrick Luna Reflex Criteria: Comment [facility] Comment on above: Result Comment: The HPV DNA reflex criteria were not met with this specimen result therefore, no HPV testing was performed. . Performed By: #### 4 [id number] #### [facility] [address] [place] [address] Dr. Derrick Luna Specimen adequacy: Comment Normal [facility] Comment on above: Result Comment: Sati sfactory for evaluation. Endocervical and/or squamous metaplastic cells (endocervical component) are present. Performed By: #### 4 [id number] #### [facility] [id number] Derrick Luna Office Visit (Allergy/Immuno logy)on [...] DAILY. Vitals Vital Signs Recorded: 30Jul2021 03:31PM Whtfuwxwzen78.1 F, Temporal Heart Rate71 Epitywumwzu01 Yawtnwol383 Sbvovvayw53 Height5 ft 1 in Uhxggu214 lb BMI Qtwymfayli58.1 kg/m2 BSA Calculated1.69 Tobacco Useb) No O2 Manlkbcuco83, RA Physical Exam Constitutional General appearance: Well developed, well nourished, no acute distress. Head and Face Palpation of the face and sinuses: No sinus tenderness, normal cephalic, atraumatic. Eyes Inspection of the conjunctiva and lids: Normal, no injection, no shiners. Ears, Nose, Mouth, and Throat Inspection of the nasal mucosa, septum, and turbinates: Normal without edema or erythema. (more content not included)... Normal [facility] Tobacco Screening.on 022 Tobacco use status [facility] b) No CT-GZXS-OZVF [place] [address]B Work Phone: COMPREHENSIVE PANELon 2021 Albumin [Mass/Vol] 4.7 g/dL Normal 3.4 - 5.0 [facility] Comment on above: Performed By: #### C MP #### [address] [id number] ALP [Catalytic activity/Vol] 60 U/L Normal 33 - 110 [facility] Comment on above: Performed By: #### C MP #### [address] [id number] ALT [Catalytic activity/Vol] 29 U/L Normal 7 - 45 [facility] Comment on above: Result Comment: Rolanda ents treated with Sulfasalazine may generate falsely decreased results for ALT. Performed By: #### C MP #### [address] [id number] Anion gap [Moles/Vol] 12 mmol/L Normal 10 - 20 [facility] Comment on above: Performed By: #### C MP #### [address] [id number] AST [Catalytic activity/Vol] 30 U/L Normal 9 - 39 [facility] Comment on above: Performed By: #### C MP #### [address] [id number] Bilirubin [Mass/Vol] 0.6 mg/dL Normal 0.0 - 1.2 [facility] Comment on above: Performed By: #### C MP #### [address] [id number] Calcium [Mass/Vol] 10.0 mg/dL Normal 8.6 - 10.3 [facility] Comment on above: Performed By: #### C MP #### [address] [id number] Chloride [Moles/Vol] 100 mmol/L Normal 98 - 107 [facility] Comment on above: Performed By: #### C MP #### [address] [id number] Creatinine [Mass/Vol] 0.79 mg/dL Normal 0.50 - 1.05 [facility] Comment on above: Performed By: #### C MP #### [address] [id number] eGFR FEMALE >90 Normal >90 [facility] Comment on above: Result Comment: CALC ULATIONS OF ESTIMATED GFR ARE PERFORMED USING THE 2020 CKD-EPI STUDY REFIT EQUATION WITHOUT THE RACE VARIABLE FOR THE IDMS-TRACEABLE CREATININE METHODS. https://jasn.asnjournals.org/content/early//ASN.39187164 88 Performed By: #### C MP #### [address] [id number] Glucose [Mass/Vol] 85 mg/dL Normal 74 - 99 [facility] Comment on above: Performed By: #### C MP #### [address] [id number] HCO3 (Bld) [Moles/Vol] 29 mmol/L Normal 21 - 32 [facility] Comment on above: Performed By: #### C MP #### [address] [id number] Potassium [Moles/Vol] 3.9 mmol/L Normal 3.5 - 5.3 [facility] Comment on above: Performed By: #### C MP #### [address] [id number] Protein [Mass/Vol] 8.2 g/dL Normal 6.4 - 8.2 [facility] Comment on above: Performed By: #### C MP #### [address] [id number] Sodium [Moles/Vol] 137 mmol/L Normal 136 - 145 [facility] Comment on above: Performed By: #### C MP #### [address] [id number] Urea nitrogen [Mass/Vol] 14 mg/dL Normal 6 - 23 [facility] Comment on above: Performed By: #### C MP #### [address] [id number] Laboratory - Chemistry and C hemistry - challengeon 07-18-2021 Albumin BCP dye [Mass/Vol] 4.7 g/dL 3.4 - 5.0 [facility] 125 Work Phone: ALP [Catalytic activity/Vol] 60 U/L 33 - 110 [facility] 125 Work Phone: ALT With P-5'-P [Catalytic activity/Vol] 29 U/L 7 - 45 [facility] 125 Work Phone: Comment on above: Patients treated wit h Sulfasalazine may generate falsely decreased results for ALT. Anion gap [Moles/Vol] 12 mmol/L 10 - 20 [facility] 125 Work Phone: AST With P-5'-P [Catalytic activity/Vol] 30 U/L 9 - 39 [facility] 125 Work Phone: Bilirubin [Mass/Vol] 0.6 mg/dL 0.0 - 1.2 [facility] 125 Work Phone: Calcium [Mass/Vol] 10.0 mg/dL 8.6 - 10.3 [facility] 125 Work Phone: Chloride [Moles/Vol] 100 mmol/L 98 - 107 [facility] 125 Work Phone: CO2 [Moles/Vol] 29 mmol/L 21 - 32 [facility] 125 Work Phone: Creatinine [Mass/Vol] 0.79 mg/dL See Below [facility] 125 Work Phone: Comment on above: Reference Range: 0.5 0 - 1.05 Glucose [Mass/Vol] 85 mg/dL 74 - 99 [facility] 125 Work Phone: Potassium [Moles/Vol] 3.9 mmol/L 3.5 - 5.3 [facility] Work Phone: Protein [Mass/Vol] 8.2 g/dL 6.4 - 8.2 [facility] 125 Work Phone: Sodium [Moles/Vol] 137 mmol/L 136 - 145 [facility] 125 Work Phone: TSH Qn 0.73 m[IU]/L See Below [facility] Work Phone: Comment on above: Reference Range: 0.4 4 - 3.98 TSH testing is performed using different testing methodology at [facility] than at other [facility]. Direct result comparisons should only be made within the same method. Urea nitrogen [Mass/Vol] 14 mg/dL 6 - 23 [facility] 125 Work Phone: No Panel Informationon 07-18 >90 >90 [facility] 125 Work Phone: Comment on above: CALCULATIONS OF ZEESHAN MATED GFR ARE PERFORMED USING THE 2020 CKD-EPI STUDY REFIT EQUATION WITHOUT THE RACE VARIABLE FOR THE IDMS-TRACEABLE CREATININE METHODS.https://jasn.asnjournals.org/content/early//ASN. 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 History of Present Illness Physical Review of Systems Constitutional: no chills, no fever and no night sweats. Eyes: no blurred vision and no eyesight problems . oph. 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 Over the last 2 weeks have you felt down, depressed or hopeless? (If yes, answer PHQ-9 below)No PHQ-2 #2. Over the last 2 weeks have you felt little interest or pleasure in doing things? (If yes, answer PHQ-9 below)No Wklpxwji521 Wdnipdmpk49 Gsbmainczcq90.6 F Height5 ft 3 in Acfrzm961 lb BMI Ufkiqatabz87.63 kg/m2 BSA Calculated1.74 Normal [employer] TSH WITH REFLEX TO FREE T4 I F ABNORMALon 07-18-2021 TSH Qn 0.73 m[IU]/L Normal 0.44 - 3.98 [facility] Comment on above: Result Comment: TSH testing is performed using different testing methodology at [facility] than at other [facility]. Direct result comparisons should only be made within the same method. Performed By: #### T [facility] #### [address] [id number] Tobacco Screening.on 022 Adult depression screening assessment No [facility] 125 Work Phone: Tobacco use status [facility] b) No [facility] 125 Work Phone: UA MICROSCOPICon 07-18-2021 Mucus Ql (Urine sed) 2+ /LPF Normal [facility] Comment on above: Performed By: #### U AMIC #### [address] [id number] RBC 6 /HPF Abnormal 0-5 [facility] Comment on above: Performed By: #### U AMIC #### [address] [id number] SQUAMOUS EPITH. CELLS 3 /HPF Normal [facility] Comment on above: Performed By: #### U AMIC #### [address] [id number] WBC 1 /HPF Normal 0-5 [facility] Comment on above: Performed By: #### U AMIC #### [address] [id number] URINALYSISon 07-18-2021 Appearance (U) HAZY Normal CLEAR [facility] Comment on above: Performed By: #### U A #### [address] [id number] Bilirubin Ql (U) Negative Normal NEGATIVE [facility] Comment on above: Performed By: #### U A #### [address] [id number] Color (U) YELLOW Normal STRAW,YELLOW [facility] Comment on above: Performed By: #### U A #### [address] [id number] Glucose Ql (U) Negative Normal NEGATIVE [facility] Comment on above: Performed By: #### U A #### [address] [id number] Hemoglobin Ql (U) MODERATE(2+) Abnormal NEGATIVE [facility] Comment on above: Performed By: #### U A #### [address] [id number] Ketones Ql (U) Negative Normal NEGATIVE [facility] Comment on above: Performed By: #### U A #### [address] [id number] Leukocyte esterase Test strip Ql (U) SMALL (1+) Abnormal NEGATIVE [facility] Comment on above: Performed By: #### U A #### [address] [id number] Nitrite Ql (U) Negative Normal NEGATIVE [facility] Comment on above: Performed By: #### U A #### [address] [id number] pH (U) 5.0 [pH] Normal 5.0 - 8.0 [facility] Comment on above: Performed By: #### U A #### [address] [id number] Protein Ql (U) Negative Normal NEGATIVE [facility] Comment on above: Performed By: #### U A #### [address] [id number] Specific gravity (U) [Rel density] 1.020 Normal 1.005 - 1.035 [facility] Comment on above: Performed By: #### U A #### [address] [id number] Urobilinogen (U) [Mass/Vol] mg/dL Normal 0.0 - 1.9 [facility] Comment on above: Performed By: #### U A #### [address] [id number] Urinalysison 07-18-2021 Color (U) YELLOW See Below [facility] 125 Work Phone: Comment on above: Reference Range: STR AW,YELLOW Glucose Ql (U) Negative NEGATIVE [facility] 125 Work Phone: Ketones Ql (U) Negative NEGATIVE [facility] 125 Work Phone: Leukocyte esterase Test strip Ql (U) SMALL (1+) Abnormal NEGATIVE -[facility] 125 Work Phone: pH (U) 5.0 [pH] 5.0 - 8.0 [facility] 125 Work Phone: Protein (U) [Mass/Vol] Negative NEGATIVE [facility] 125 Work Phone: RBC (U) [#/Vol] MODERATE(2+) Abnormal NEGATIVE [facility] 125 Work Phone: Specific gravity (U) [Rel density] 1.020 1 See Below [facility] 125 Work Phone: Comment on above: Reference Range: 1.0 05 - 1.035 Urinalysis Negative NEGATIVE [facility] 125 Work Phone: Urinalysis <2.0 0.0 - 1.9 [facility] 125 Work Phone: Urinalysis HAZY CLEAR [facility] 125 Work Phone: Urinalysis, Microscopicon Urinalysis, Microscopic 2+ [facility] 125 Work Phone: Urinalysis, Microscopic 3 {/HPF} [facility] 125 Work Phone: Urinalysis, Microscopic 6 {/HPF} Abnormal 0-5 -[facility] 125 Work Phone: Urinalysis, Microscopic 1 {/HPF} [facility] Work Phone: Vital Signs Date Time Vital Sign Value Performing Clinician Michellei lity 07-30-2021 15:31-0500 Body height 154.94 cm [facility] Work Phone: ZR-GEAM-CSNI [place] [address] Work Phone: 07-30-2021 15:31-0500 Body mass index (BMI) [Ratio] 29.1 kg/m2 [facility] Work Phone: FX-ALDH-ICYC [place] [address] Work Phone: 07-30-2021 15:31-0500 Body surface area Derived from formula 1.69 m2 [facility] Work Phone: GU-VXFQ-PGCJ [place] [address] Work Phone: 07-30-2021 15:31-0500 Body temperature 98.1 [degF] [facility] Work Phone: FI-YEHI-UGKL [place] [address] Work Phone: 07-30-2021 15:31-0500 Body weight 69.85 kg [facility] Work Phone: DK-MKDV-XZKR [place] [address] Work Phone: 07-30-2021 15:31-0500 Diastolic blood pressure 68 mm[Hg] [facility] Work Phone: KI-KHDF-LINR [place] [address] Work Phone: 07-30-2021 15:31-0500 Heart rate 71 /min [facility] Work Phone: PT-FYUC-KXPD [place] [address] Work Phone: 07-30-2021 15:31-0500 Respiratory rate 17 /min [facility] Work Phone: EO-IFNT-AYVM [place] [address] Work Phone: 07-30-2021 15:31-0500 SaO2% (BldA) [Mass fraction] 98 % [facility] Work Phone: GD-MAWV-PFJD [place] [address] Work Phone: 07-30-2021 15:31-0500 Systolic blood pressure 110 mm[Hg] [facility] Work Phone: QD-GAWC-VIHJ [place] [address] Work Phone: 07-18-2021 14:44-0500 Diastolic blood pressure 70 mm[Hg] [facility] Work Phone: [facility] Work Phone: 07-18-2021 14:44-0500 Systolic blood pressure 116 mm[Hg] [facility] Work Phone: [facility] Work Phone: 07-18-2021 14:37-0500 Body height 160.02 cm [facility] Work Phone: [facility] Work Phone: 07-18-2021 14:37-0500 Body mass index (BMI) [Ratio] 27.63 kg/m2 [facility] Work Phone: [facility] Work Phone: 07-18-2021 14:37-0500 Body surface area Derived from formula 1.74 m2 [facility] Work Phone: [facility] Work Phone: 07-18-2021 14:37-0500 Body temperature 98.6 [degF] Ana María [facility] Work Phone: [facility] 125 Work Phone: 07-18-2021 14:37-0500 Body weight 70.76 kg Ana María [facility] Work Phone: [facility] 125 Work Phone: 05-18-2021 15:40-0500 Body height 160.02 cm Tomas Claire Other [employer] Other 05-18-2021 15:40-0500 Body mass index (BMI) [Ratio] 25.68 kg/m2 Tomas Claire Other [employer] Other 05-18-2021 15:40-0500 Body temperature 98.4 [degF] Tomas Claire Other [employer] Other 05-18-2021 15:40-0500 Body weight 65.77 kg Tomas Claire Other [employer] Other 05-18-2021 15:40-0500 Respiratory rate 18 /min Tomas Claire Other [employer] Other 05-18-2021 15:40-0500 SaO2% (BldA) [Mass fraction] 97 % Tomas Claire Other [employer] Other Encounters Encounter Date Encounter Type Care Provider Facility Start: 02-17-2024 End: 02-17-2024 ambulatory JEFFRY KHARI Not Available Start: 02-11-2024 End: 02-11-2024 ambulatory JEFFRY KHARI Not Available Start: 02-02-2024 End: 02-02-2024 ambulatory JEFFRY KHARI Not Available Start: 01-18-2024 End: 01-18-2024 ambulatory JEFFRY KHARI Not Available Start: 12-31-2023 End: 12-31-2023 ambulatory BIJAN ENRIQUEZ Not Available Start: 12-14-2023 End: 12-14-2023 ambulatory JEFFRY KHARI Not Available Start: 11-11-2023 End: 11-11-2023 ambulatory JEFFRY KHARI Not Available Start: 10-29-2023 End: 10-29-2023 ambulatory JEFFRY KHARI Not Available Start: 10-15-2023 End: 10-15-2023 ambulatory [facility] Start: 10-15-2023 End: 10-15-2023 ambulatory [facility] Work Phone: [facility] Work Phone: Start: 10-15-2023 End: 10-15-2023 Patient encounter procedure [facility] Work Phone: [facility]Ul[facility]ound [place] Work Phone: Start: 07-16-2023 End: 07-16-2023 ambulatory Roz Walsh ([facility]) Facility:[facility] Start: 07-16-2023 End: 07-16-2023 ambulatory [facility] Work Phone: [facility] Work Phone: Start: 07-16-2023 End: 07-16-2023 Patient encounter procedure [facility] Work Phone: [facility]Ultrasound [place] Work Phone: Start: 08-18-2022 End: 08-18-2022 ambulatory BIJAN ENRIQUEZ . Facility:[facility]1 Start: 08-26-2021 End: 08-26-2021 ambulatory JEFFRY KHARI Facility:[facility] Start: 07-30-2021 Office consultation new/estab patient 60 min Ana María Smith Work Phone: [id number] [place] [address] Work Phone: Start: 07-19-2021 Chart Update [facility] Work Phone: [facility] Work Phone: Start: 07-18-2021 Office outpatient ne w 30 minutes [facility] Work Phone: [facility] Work Phone: Start: 05-18-2021 End: 05-18-2021 ambulatory Tomas Claire Other [place] [employer] Other Start: 05-18-2021 Office outpatient ne w 30 minutes Tomas Claire [facility] [address] Procedures Date Procedure Procedure Detail Performing Clinician Start: 10-15-2023 Diagnostic ultrasoun d of gravid uterus [facility] Work Phone: Start: 07-16-2023 Diagnostic ultrasoun d of gravid uterus [facility] Work Phone: Plan of Treatment Date Care Activity Detail Author Start: 07-30-2021 NPV, Provider: Lita Barriga, Status: Pen, Time: 3:10 PM NPV, Provider: Lita Barriga, Status: Pen, Time: 3:10 PM [facility] 125 Work Phone: Immunizations Immunization Date Immunization Notes Care Provider Janee leonard 01-10-2021 Pfizer-BioNTech COVID-19 Vacc 30 MCG/0.3ML Intramuscular Suspension [facility] Work Phone: [facility] Work Phone: 01-20-2002 diphtheria, tetanus toxoids and acellular pertussis vaccine, unspecified formulation [facility] Work Phone: [place] [address] Work Phone: 01-20-2002 hepatitis B vaccine, pediatric or pediatric/adolescent dosage [facility] Work Phone: [place] [address] Work Phone: 01-20-2002 measles, mumps and rubella virus vaccine [facility] Work Phone: [place] [address] Work Phone: 01-20-2002 poliovirus vaccine, inactivated [facility] Work Phone: [place] [address] Work Phone: 08-05-1999 diphtheria, tetanus toxoids and acellular pertussis vaccine, unspecified formulation [facility] Work Phone: [place] [address] Work Phone: 08-05-1999 haemophilus influenz ae type b vaccine, conjugate unspecified formulation [facility] Work Phone: [place] [address] Work Phone: 08-05-1999 measles, mumps and rubella virus vaccine [facility] Work Phone: [place] [address] Work Phone: Payers Date Payer Category Payer Medicaid [id number] 2023 Self-pay 1996 Unknown [id number] 2.16.84 [id number] 1996 Unknown [id number] 2.16.84 [id number] 1996 Unknown [id number] 2.16.84 [id number] 1996 Unknown [id number] 2.16.84 [id number] 1996 Unknown [id number] 2.16.84 [id number] 1996 Unknown [id number] 2.16.84 [id number] 1996 Unknown [id number] 2.16.84 [id number] 1996 Unknown [id number] 2.16.84 [id number] 1996 Unknown [id number] 2.16.84 [id number] 1996 Unknown [id number] 2.16.84 [id number] 1959 Unknown [id number] Unknown ANTHEM Unknown [id number] 2.16.8 [id number] Unknown HCAP/HFA/FAP Active [id number] Unknown [id number] 2.16.8 [id number] Social History Date Type Detail Facility Never smoked cigarettes Never smoked cigarettes [employer] [facility] Other Sex Assigned At Sex Assigned At Bir th [employer] Other Start: 1996 Sex Assigned At Female F [facility] Start: 02-27-2020 Tobacco smoking stat us GAIS Never smoked tobacco (finding) [facility] History of Present illness Narrative 06-08-2021 [...] to illness or ingestion. ? heat exposure. [facility] Work Phone: History of Present illness [...] to illness or ingestion. ? heat exposure. [id number] [place] [address] Work Phone: Evaluation note 05-18-2021 Note Date & Type Note Facility 05-18-2021 Evaluation note Encounter Date Diagnosis Assessment Notes May, Acute urticaria (ICD-10 - L50.8) Take benadryl 50 mg at night for rash. Drink plenty of fluids. Do not perez or use any tanning lotion. Take medicine as prescribed. If symptoms return you may need to see an sound effects manager. I considered/disc ussed prescription medicine with the patient. No evidence of anaphylaxis. Etiology of allergy unknown. If she develops sob, wheezing, N/V, or swelling in her lips, she is advised to go to the ER immediately. Advised pt to follow up with sound effects manager if she develops returning symptoms. Will tx today with kenalog injections and medrol dose pack. Also advised to take benadryl as directed until rash clears. Pt understands and agrees with the plan. [employer] Other Evaluation note Note Date & Type Note Facility Evaluation note No assessment information [facility] Work Phone: History of Present illness Narrative Note Date & Type Note Facility History of Present illness Narrative Physical [facility] Work Phone: Chief Complaint Patient presented today to [facility].New patient here to discuss rash, PCP [...] CREATED AUTHOR 07/31/2021 [facility] DATE CREATED AUTHOR AUTHOR'S ORGANIZ ATION 07/31/2021 [employer] DATE CREATED AUTHOR AUTHOR'S ORGANIZ ATION 08/24/2022 [facility] DATE CREATED AUTHOR AUTHOR'S ORGANIZ ATION 07/31/2023 [facility] DATE CREATED AUTHOR AUTHOR'S ORGANIZ ATION 10/30/2023 [facility] DATE CREATED AUTHOR AUTHOR'S ORGANIZ ATION 02/19/2024 [facility] EPIC REASON FOR VISIT (unrecogniz ed section and content) rash on arms, back, legs Care Teams (unrecognized sec tion and content) Team Status: Active Member Role Status Dates [facility] Primary Care Provider Active Team Status: Inactive Member Role Status Dates Roz Walsh ([facility]) , THOR Attending Provider Active Start: July 16, 2023 End: July 16, 2023 [facility] Primary Care Provider Active Start: July 16, 2023 End: July 16, 2023 Team Status: Inactive Member Role Status Dates [facility] Primary Care Provider Active Start: October 15, 2023 End: October 15, 2023 [facility] Attending Provider Active Start: October [...] BE BASED ON THE PRIMARY CLINICAL RECORDS. [facility] [employer] provides no warranty or guarantee of the accuracy or completeness of information in this document.
[2024-02-23] MEDS: 0.9 % SODIUM CHLORIDE 1,000 ML 1000 ML IV (07:08)
[2024-02-23] MEDS: METOCLOPRAMIDE HCL 10 MG/2 ML VIAL IVP (07:08)
[2024-02-23] MEDS: CITRIC ACID/SODIUM CITRATE 30 ML SOLUTION ORACIT SHOHL'S SOLN PO (07:08)
[2024-02-23] MEDS: FAMOTIDINE/PF 20 MG/2 ML VIAL IV (07:08)
[2024-02-23 07:09] LABS: Basophils Absolute Auto 0.1 10^3/uL (0.0-0.1); Basophils Percent Auto 0.4 % (0.2-2.0); Eosinophils Absolute Auto 0.1 10^3/uL (0.0-0.7); Eosinophils Percent Auto 0.6 % (0.9-7.0); Hematocrit 30.6 % (36.0-48.0); Hemoglobin 9.8 g/dL (12.0-16.0); Immature Granulocytes Abs Auto 0.26 10^3/uL (0.00-0.03); Lymphocytes Absolute Auto 3.1 10^3/uL (1.2-3.8); Lymphocytes Percent Auto 23.6 % (20.5-60.0); Mean Corpuscular Hemoglobin 27.8 pg (26.7-34.0); Mean Corpuscular Volume 86.9 fL (81.0-99.0); Mean Platelet Volume 9.5 fL (9.5-13.5); Monocytes Absolute Auto 0.9 10^3/uL (0.3-0.8); Monocytes Percent Auto 7.1 % (1.7-12.0); Neutrophils Absolute Auto 8.6 10^3/uL (1.4-6.5); Neutrophils Percent Auto 66.3 % (43.0-75.0); Platelet Count 320 10^3/uL (150-450); Red Blood Count 3.52 10^6/uL (4.20-5.40); Red Cell Distribution Width 13.5 % (11.0-15.0)
[2024-02-23 07:19] LABS: Amphetamine Screen Urine NEGATIVE (NEGATIVE); Barbiturates Screen Urine NEGATIVE (NEGATIVE); Benzodiazepines Screen Urine NEGATIVE (NEGATIVE); Buprenorphine Screen Urine NEGATIVE (NEGATIVE); Cannabinoid Screen Urine NEGATIVE (NEGATIVE); Cocaine Screen Urine NEGATIVE (NEGATIVE); Methadone Screen Urine NEGATIVE (NEGATIVE); Methamphetamines Screen Urine NEGATIVE (NEGATIVE); Opiate Screen Urine NEGATIVE (NEGATIVE); Oxycodone Screen Urine NEGATIVE (NEGATIVE); Phencyclidine Screen Urine NEGATIVE (NEGATIVE); Tricyclic Antidepressant Urine NEGATIVE (NEGATIVE)
[2024-02-23] MEDS: 0.9 % SODIUM CHLORIDE 1,000 ML 125 ML IV (07:28)
[2024-02-23] MEDS: CEFAZOLIN SODIUM/DEXTROSE,ISO 1 GM/50 ML PREMIX IV (07:40)
--- NOTE | 2024-02-23 08:40 | P.ON_ITS ---
Brief Operative Note Date of procedure: 02/23/24 Pre-op diagnosis general: iup at 39wks, breech presentation Post-op diagnosis: same as pre-op Procedure: NAME OF PROCEDURE: [ section ] PROCEDURE: Patient was taken back to the Operating Room where she was given a spinal anesthesia with Duramorph without difficulty. She was prepped and draped in the normal sterile fashion. A Pfannenstiel skin incision was then made 2 cm above the symphysis pubis and carried down to underlying rectus fascia using a Bovie. The fascia was incised in the midline and extended laterally using Scott scissors. Two Álvaro clamps were placed on the superior aspect of the fascia and dissected off the underlying rectus muscles. The same was performed on the inferior aspect as well. The muscles were then in the midline. Peritoneum was identified and entered bluntly. The peritoneum was then extended superiorly and inferiorly with good visualization of the bladder. The bladder blade was inserted. A low transverse incision was made on the patient's uterus and extended laterally digitally. The was then delivered atraumatically after the bladder blade was removed in the breech position. The cord was clamped and cut. Cord blood was obtained. The infant was handed off to awaiting team. The patient's placenta was spontaneously delivered. The uterus was then exteriorized. The uterus was cleared of all clots and debris. The bladder blade was reinserted. The patient's uterine incision was closed using #0 Vicryl in a running lock fashion. Excellent hemostasis was assured. The uterus was then returned to the patient's abdomen. The patient's abdomen was copiously irrigated using warm saline. Peritoneal gutters were cleared of all clots and debris. Again excellent hemostasis was assured. The patient's peritoneum was closed using 3-0 Vicryl in a running fashion. The patient's fascia was closed using #0 Vicryl in a running fashion. The patient's skin was closed using 4-0 Vicryl subcuticularly. The patient tolerated the procedure well. Sponge, lap, and needle counts were correct x2. The patient was taken to the Recovery Room in stable condition. Anesthesia: spinal Surgeon: Arturo Treviño [employer] Project Manager: Priya Cruz Estimated blood loss (mL): 575 Pathology: none sent Condition: stable Disposition: PACU Urinary Catheter Management Urinary Catheter Management Urethral: Cath placed during this visit: no
--- NOTE | 2024-02-23 08:42 | P.OBPRC_ITS ---
Procedure Pre-op/Post-op diagnoses: Pre-Op/Post-Op Diagnoses Operation Date: 02/23/24 07:30 <No data on this case meets the specified criteria> Procedure: Procedures Operation Date: 02/23/24 07:30 Actual Procedure Side Surgeon p Primary with delivery of viable baby girl Not Applicable Arturo Treviño DO Storage Facility Housekeeper: Priya Cruz Estimated blood loss (mL): 575 Disposition: PACU Anesthesia type: Spinal
[2024-02-23] MEDS: OXYTOCIN/0.9 % SODIUM CHLORIDE 20 UNITS/1,000 ML PLAST..BAG 125 UNIT IV (09:07)
[2024-02-23] MEDS: KETOROLAC TROMETHAMINE 30 MG/ML VIAL IVP ×3 (09:41→22:45)
[2024-02-23] MEDS: CEFAZOLIN SODIUM/DEXTROSE,ISO 2 GM/50 ML PIGGYBACK IV (14:19)
[2024-02-23] MEDS: ENOXAPARIN SODIUM 40 MG/0.4 ML SYRINGE SUBQ (20:00)
[2024-02-24 00:14] VITALS: BP 112/69; PULSE 68; TEMP 36.6
[2024-02-24 04:48] VITALS: BP 117/72; PULSE 72; TEMP 36.8
[2024-02-24] MEDS: KETOROLAC TROMETHAMINE 30 MG/ML VIAL IVP ×4 (04:48→23:05)
[2024-02-24 06:52] LABS: Basophils Absolute Auto 0.1 10^3/uL (0.0-0.1); Basophils Percent Auto 0.3 % (0.2-2.0); Eosinophils Absolute Auto 0.1 10^3/uL (0.0-0.7); Eosinophils Percent Auto 0.3 % (0.9-7.0); Hemoglobin 7.8 g/dL (12.0-16.0); Immature Granulocytes Abs Auto 0.27 10^3/uL (0.00-0.03); Immature Granulocytes Pct Auto 1.4 % (0.0-0.5); Lymphocytes Absolute Auto 3.3 10^3/uL (1.2-3.8); Lymphocytes Percent Auto 16.7 % (20.5-60.0); Mean Corpuscular HGB Conc 32.6 g/dL (29.9-35.2); Mean Corpuscular Hemoglobin 28.6 pg (26.7-34.0); Mean Corpuscular Volume 87.5 fL (81.0-99.0); Mean Platelet Volume 9.3 fL (9.5-13.5); Monocytes Absolute Auto 1.5 10^3/uL (0.3-0.8); Monocytes Percent Auto 7.5 % (1.7-12.0); Neutrophils Absolute Auto 14.8 10^3/uL (1.4-6.5); Neutrophils Percent Auto 73.8 % (43.0-75.0); Platelet Count 257 10^3/uL (150-450); Red Blood Count 2.73 10^6/uL (4.20-5.40); Red Cell Distribution Width 13.8 % (11.0-15.0)
[2024-02-24 06:55] LABS: Hematocrit 23.9 % (36.0-48.0)
--- NOTE | 2024-02-24 07:57 | PM.OBPN ---
OB - PN: Subj Subjective Patient comments: no complaints and pain well controlled [place] status: doing well Exam Constitutional Vital Signs, click to edit/add: Last Vital Signs Temp 98.2 F 02/24/24 04:48 Pulse 72 02/24/24 04:48 Resp 16 02/23/24 20:00 BP 117/72 02/24/24 04:48 Pulse Ox 88 L 02/23/24 18:17 O2 Del Method Room Air 02/24/24 04:58 Respiratory Common normals: clear to auscultation bilaterally Cardio Common normals: regular rate and regular rhythm GI Common normals: Normal to inspection, nondistended, normoactive bowel sounds present Extremity Common normals: no clubbing, cyanosis or edema and no calf tenderness Results Labs Labs: Short CBC 02/24/24 Range/Units 06:45 WBC 20.0 H (4.0-11.0) 10^3/uL Hgb 7.8 L (12.0-16.0) g/dL Hct 23.9 L* (36.0-48.0) % Plt Count 257 (150-450) 10^3/uL Urinary Catheter Management Urinary Catheter Management Urethral: Cath placed during this visit: yes, but has since been removed by the nurse Removal date: 02/23/24 Removal time: 16:30 OB - PN: A/P Plan - day: 1 Plan: routine postop care Time Spent with Patient Time: Total time spent is greater than 50% in coordination of care (as documented) at patient's floor/unit and/or counseling patient: Total time spent with greater than 50% in coordination of care (as documented) at patient's floor/unit and/or counseling patient: less than 15 minutes
[2024-02-24 10:43] VITALS: BP 111/79
[2024-02-24] MEDS: DOCUSATE SODIUM 100 MG CAPSULE PO ×2 (10:45→20:46)
--- NOTE | 2024-02-24 10:55 | PC.NURSE ---
LC into room as CPaeth OT, STRIP MILL OPERATOR working with mom and baby. Assisted to breast in football hold while mom into chair, supported with pillows. Several attempts made prior to latching well. No reports of pain with latch. Suck is stronger as reported by mom. STRIP MILL OPERATOR continues while at breast.
[2024-02-24 16:12] VITALS: BP 119/73
[2024-02-24] MEDS: ENOXAPARIN SODIUM 40 MG/0.4 ML SYRINGE SUBQ (20:45)
[2024-02-24] MEDS: SIMETHICONE 80 MG TAB.CHEW PO (22:10)
[2024-02-24 23:05] VITALS: BP 117/77; TEMP 37.1
[2024-02-25] MEDS: KETOROLAC TROMETHAMINE 30 MG/ML VIAL IVP (05:11)
--- NOTE | 2024-02-25 08:26 | PM.OBPN ---
OB - PN: Subj Subjective Patient comments: no complaints and pain well controlled [place] status: doing well Exam Constitutional Vital Signs, click to edit/add: Last Vital Signs Temp 98.7 F 02/24/24 23:05 Pulse 72 02/24/24 04:48 Resp 14 02/24/24 23:05 BP 117/77 02/24/24 23:05 Pulse Ox 88 L 02/23/24 18:17 O2 Del Method Room Air 02/25/24 00:00 Documenting provider has reviewed patient's vital signs: yes Common normals: no apparent distress Respiratory Common normals: normal respiratory effort and clear to auscultation bilaterally Cardio Common normals: regular rate and regular rhythm GI Common normals: Normal to inspection, nondistended, normoactive bowel sounds present Extremity Common normals: no calf tenderness Urinary Catheter Management Urinary Catheter Management Urethral: Cath placed during this visit: yes, but has since been removed by the nurse Removal date: 02/23/24 Removal time: 16:30 OB - PN: A/P Plan - day: 2 Plan: routine postop care, discharge home and follow up 6 weeks Time Spent with Patient Time: Total time spent is greater than 50% in coordination of care (as documented) at patient's floor/unit and/or counseling patient: Total time spent with greater than 50% in coordination of care (as documented) at patient's floor/unit and/or counseling patient: less than 15 minutes
[2024-02-25 08:30] VITALS: TEMP 36.6
[2024-02-25 08:34] VITALS: BP 132/83
--- NOTE | 2024-02-25 09:40 | PC.NURSE ---
much education done regarding feeding intervals (2-3 hrs max during day and 4 hrs max at night), sleep deprivation, incisional care and self care- reviewed plan of care for today to ambulate outside of room, keep pain under control, nap and watch bath demo and teaching videos to room, instructed to call for peds appt for Thursday and list provided of area providers, states will try to follow up closer to home
[2024-02-25] MEDS: DOCUSATE SODIUM 100 MG CAPSULE PO ×2 (10:30→20:33)
[2024-02-25] MEDS: IBUPROFEN 400 MG TABLET 800 MG PO ×2 (11:00→18:31)
[2024-02-25 16:04] VITALS: BP 130/80
[2024-02-25 16:05] VITALS: BP 130/80
--- NOTE | 2024-02-25 19:09 | PC.NURSE ---
pt watching teaching videos, states felt tight sensation across breast then noted leaking- educated on let down reflex, baby unwrapped from blanket and pt instructed to allow baby to awaken and put to breast once brian starts showing signs of hunger
[2024-02-25] MEDS: ENOXAPARIN SODIUM 40 MG/0.4 ML SYRINGE SUBQ (20:33)
[2024-02-25 23:15] VITALS: TEMP 36.9
[2024-02-25 23:41] VITALS: BP 119/79
[2024-02-26] MEDS: OXYCODONE HCL/ACETAMINOPHEN 5MG/325MG 1 TAB PO ×2 (00:07→07:59)
[2024-02-26] MEDS: IBUPROFEN 400 MG TABLET 800 MG PO ×2 (02:43→13:39)
--- NOTE | 2024-02-26 07:12 | W.PC.ACHO ---
Registration Status: ADM IN Primary Language: Macanese Preferred Language: Macanese Report given to Meghan HERRING. Active Medications Generic Name Dose Route Start Last Admin Trade Name Freq PRN Reason Stop Dose Admin Al Hydroxide/Mg Hydroxide 2,400 mg 02/23/24 08:42 Magnesium Hydroxide 2,400 Mg/10 Ml Oral.Susp PO Q6H PRN Dyspepsia Docusate Sodium 100 mg 02/24/24 09:00 02/25/24 20:33 Docusate Sodium 100 Mg Capsule PO 100 mg BID HALEIGH Administration Enoxaparin Sodium 40 mg 02/23/24 20:00 02/25/24 20:33 Enoxaparin Sodium 40 Mg/0.4 Ml Syringe SUBQ 40 mg Q24H H[place]IGH Administration Sodium Chloride 1,000 mls @ 125 mls/hr 02/23/24 06:00 02/23/24 07:28 Sodium Chloride 0.9% 1,000 Ml IV 125 mls/hr .Q8H H[place]IGH Administration Promethazine HCl 25 mg/ Sodium 51 mls @ 204 mls/hr 02/23/24 08:42 Chloride IV Q6H PRN Nausea And Vomiting Ibuprofen 800 mg 02/23/24 08:42 02/26/24 02:43 Ibuprofen 400 Mg Tablet PO 800 mg Q8H PRN Administration Pain Ondansetron HCl 4 mg 02/23/24 08:42 Ondansetron 4 Mg Rapdis Tablet PO Q6H PRN Nausea And Vomiting Ondansetron HCl 4 mg 02/23/24 08:42 Ondansetron Pf 4 Mg/2 Ml Vial IV Q6H PRN Nausea And Vomiting Oxycodone/Acetaminophen 1 tab 02/23/24 08:42 02/26/24 00:07 Oxycodone Hcl/Acetaminophen 5mg/325mg PO 1 tab Q4H PRN Administration Pain Scale 4-6 Oxycodone/Acetaminophen 2 tab 02/23/24 08:42 Oxycodone Hcl/Acetaminophen 5mg/325mg PO Q4H PRN Pain Scale 7-10 Senna 17.2 mg 02/23/24 20:00 Sennosides 8.6 Mg Tablet PO QHS PRN Constipation Simethicone 80 mg 02/23/24 08:42 02/24/24 22:10 Simethicone 80 Mg Tab.Chew PO 80 mg QID PRN Administration Abdominal Distention Respiratory Oxygen Delivery Method Room Air Renal Bladder Pattern Continent Catheter Date Urinary Catheter Removed 02/23/24 [Urethral] Time Urinary Catheter 16:30 Discontinued [Urethral]
[2024-02-26] MEDS: DOCUSATE SODIUM 100 MG CAPSULE PO (08:00)
[2024-02-26 08:04] VITALS: BP 117/87; TEMP 36.3
--- NOTE | 2024-02-26 08:32 | PM.OBPN ---
OB - PN: Subj Subjective Patient comments: no complaints and pain well controlled [place] status: doing well Exam Constitutional Vital Signs, click to edit/add: Last Vital Signs Temp 98.4 F 02/25/24 23:15 Pulse 72 02/24/24 04:48 Resp 16 02/25/24 23:15 BP 117/77 02/24/24 23:05 Pulse Ox 88 L 02/23/24 18:17 O2 Del Method Room Air 02/25/24 23:15 Documenting provider has reviewed patient's vital signs: yes Common normals: no apparent distress Respiratory Common normals: clear to auscultation bilaterally Cardio Common normals: regular rate and regular rhythm GI Common normals: Normal to inspection, nondistended, normoactive bowel sounds present Extremity Common normals: no calf tenderness Urinary Catheter Management Urinary Catheter Management Urethral: Cath placed during this visit: yes, but has since been removed by the nurse Removal date: 02/23/24 Removal time: 16:30 OB - PN: A/P Plan - day: 3 Plan: routine postop care, discharge home and follow up 6 weeks Time Spent with Patient Time: Total time spent is greater than 50% in coordination of care (as documented) at patient's floor/unit and/or counseling patient: Total time spent with greater than 50% in coordination of care (as documented) at patient's floor/unit and/or counseling patient: less than 15 minutes
== END 2024-02-26 16:00 | disposition home or self-care (01) | DRG 540 ==
PROVIDERS: Admitting Provider Obstetrics & Gynecology; Visit Provider Obstetrics & Gynecology
PROC: 10D00Z1 Extraction of Products of Conception, Low, Open Approach (ICD-10-PCS; CPT 59514; principal; 2024-02-23 07:30)
DX: O32.1XX0 Maternal care for breech presentation, not applicable or unspecified (principal); Z3A.39 39 weeks gestation of pregnancy; Z37.0 Single live birth
CPT/HCPCS: 36415; 80307; 85025; 86850; 86900; 86901; 94667; 94668; J0690; J1650; J1885; J2274; J2371; J2405; J2590; J2765